=== PATIENT | male | born 1955 | race Caucasian/White ===

== ENCOUNTER 2024-06-17 15:45 | Outpatient (CLI) | payer MEDICARE, MEDICAID, SELFPAY ==
--- NOTE | 2024-06-17 11:15 | DI.RAD_ITS ---
Exam(s) XR KNEE RT 3V AP,LAT,DONTAE EXAM: XR KNEE RT 3V AP,LAT,DONTAE CLINICAL HISTORY: R KNEE OA. TECHNIQUE: 2D digital imaging was performed of the right knee. Three views obtained. AP, lateral an d PA tunnel views were obtained. COMPARISON: No exams were available for comparison FINDINGS: BONES: No acute fracture is present. No bony destructive lesion is seen. JOINTS: There are severe degenerative changes seen in the right knee involving all 3 joint compartmen ts characterized by joint space narrowing and osteophytes. There is bone on bone in the medial femor al tibial joint and the patellofemoral joint. Large osteophytes are seen at the patellofemoral joint . There is flattening of the articular surfaces in the proximal tibia. There is a joint effusion pr esent. There densities seen both anterior and posterior to the knee on the lateral view which may re present loose bodies. SOFT TISSUE: Vascular calcification is present. IMPRESSION: Advanced osteoarthritis of the right knee. DATA REPOSITORY: RADIATION DOSE DELIVERED:
--- NOTE | 2024-06-17 11:15 | DI.RAD_ITS ---
Exam(s) XR KNEE LT 3V AP,LAT,DOTNAE EXAM: XR KNEE LT 3V AP,LAT,DONTAE CLINICAL HISTORY: OA L KNEE. TECHNIQUE: 2D digital imaging was performed of the left knee. Three images were obtained. AP, late ral and PA tunnel views were obtained. COMPARISON: There are no priors for comparison. FINDINGS: BONES: No acute fracture is present. No bony destructive lesion is seen. JOINTS: There are advanced degenerative changes in all 3 joint compartments of the left knee with latonya nt space narrowing and osteophytes present. Subchondral sclerosis is seen. There is flattening of t he articular surfaces with bone on bone in the femoral tibial joint. There is a joint effusion. The re densities seen anteriorly in the knee suggesting loose bodies. SOFT TISSUE: Atherosclerotic calcification is seen. IMPRESSION: Advanced osteoarthritis of the left knee. DATA REPOSITORY: RADIATION DOSE DELIVERED:
== END 2024-06-17 15:46 | disposition home or self-care (01) ==
LOC: DIORS 15:45
PROVIDERS: PCP Physician Assistant Medical; Visit Provider Student in an Organized Health Care Education/Training Program
DX: M17.0 Bilateral primary osteoarthritis of knee (principal)
CPT/HCPCS: 20610; 73562; 99203; J1010

== ENCOUNTER 2024-11-07 15:45 | Outpatient (CLI) | payer MEDICARE, MEDICAID, SELFPAY ==
--- NOTE | 2024-11-07 13:30 | DI.RAD_ITS ---
Exam(s) XR STANDING ALIGNMENT EXAM: XR STANDING ALIGNMENT CLINICAL HISTORY: BILAT KNEE OA. TECHNIQUE: 2D digital imaging was performed. COMPARISON: CR XR KNEE RT 3V AP,LAT,DONTAE from 06/17/2024 CR XR KNEE LT 3V AP,LAT,DONTAE from 06/17/2024 FINDINGS: 3 views There is severe [id number] narrowing of the medial lateral compartments of both knees, similar to p rior images of 06/17/2024. There are degenerative subarticular cysts in all compartments. There is again noted an element of concavity of the medial tibial plateau of the right knee without evidence o f tibial plateau fracture. There is Verus deformity of the right knee again noted. There is mild narrowing of the right hip joint. Left hip joint appears unremarkable. Ankles unremar kable. There are no significant osseous lesions. IMPRESSION: Severe advanced osteoarthritic degenerative change both knees involving medial lateral compartments b ilaterally. Similar to prior images of 06/17/2024. DATA REPOSITORY: RADIATION DOSE DELIVERED:
== END 2024-11-07 15:46 | disposition home or self-care (01) ==
LOC: DIORS 15:46
PROVIDERS: PCP Physician Assistant Medical; Referring Provider Physician Assistant Medical; Visit Provider Physician Assistant
DX: M17.11 Unilateral primary osteoarthritis, right knee; M17.12 Unilateral primary osteoarthritis, left knee
CPT/HCPCS: 99213; 77073

== ENCOUNTER → 2025-05-08 12:57 | Outpatient (BNVA) | payer MEDICARE, MEDICAID, SELFPAY | PROVIDERS: PCP Physician Assistant Medical; Referring Provider Physician Assistant Medical; Visit Provider Student in an Organized Health Care Education/Training Program | DX: Z01.818 Encounter for other preprocedural examination (principal); M17.0 Bilateral primary osteoarthritis of knee | CPT/HCPCS: 99024 ==

== ENCOUNTER 2025-05-08 16:42 | Outpatient (REF) | payer MEDICARE, MEDICAID, SELFPAY ==
[2025-05-08 17:53] LABS: HCT 37.7 % (40.0-50.0); HGB 12.4 g/dL (13.5-17.5); MCH 31.9 pg (27.0-33.0); MCHC 32.9 % (32.0-36.0); MCV 97 fL (80-95); MPV 10.3 fL (8.0-11.0); Platelet Count 189 10^3/uL (130-400); RBC 3.89 10^6/uL (4.36-5.78); RDW 13.2 % (11.8-14.1); RDW-SD 47.2 fL; WBC 5.80 10^3/uL (4.4-10.8)
[2025-05-08 17:57] LABS: Anion Gap 5.9 mmol/L (3-11); BUN 23 mg/dL (7-18); CO2 30.1 mmol/L (21.0-32.0); Calcium 9.1 mg/dL (8.5-10.1); Chloride 108 mmol/L (98-107); Estimated GFR 97.90 (mL/min/1.73m2); Glucose 114 mg/dL (74-106); Potassium 3.7 mmol/L (3.5-5.1); Sodium 144 mmol/L (136-145)
== END 2025-05-08 16:43 | disposition home or self-care (01) ==
LOC: LBN 16:42
PROVIDERS: PCP Physician Assistant Medical; Visit Provider Student in an Organized Health Care Education/Training Program
DX: M17.0 Bilateral primary osteoarthritis of knee (principal); Z01.818 Encounter for other preprocedural examination
CPT/HCPCS: 80048; 85027

== ENCOUNTER 2025-05-20 13:12 | Inpatient (IN) | payer MEDICARE, MEDICAID, SELFPAY ==
[2025-05-20] VITALS (15 sets, daily range): BP systolic 84–184; BP diastolic 54–111; PULSE 71–94; RESP 16–22; TEMP 36–37.1; O2SAT 87–97; BMI 40.1
--- NOTE | 2025-05-20 | DI.US_ITS ---
APPROVED REPORT EXAM: Comprehensive 2D, Doppler, and color-flow Echocardiogram Patient Location: In-Patient Room/Bed: [facility] Animal Health Technician: Ban Flores RDCS (AE) Indications: New murmur, Awaiting surgery Other Information Study Quality: Adequate. Technically limited study due to body habitus. Conclusion Mild concentric left ventricular hypertrophy. Ejection fraction is 60%. Wall motion is normal Normal right ventricular size and function Both atria are normal in size The aortic valve is calcified. There is mild to moderate aortic stenosis with a peak gradient of 41 and mean 24 mmHg. Calculated aortic valve area is 1.5 cm??. There is mild aortic regurgitation Mild mitral annular calcification Mildly to moderately dilated aortic root and ascending aorta Wall motion Left Ventricle The left ventricle is normal size. The left ventricular systolic function is normal. The left ventricular ejection fraction is within the normal range. Mild concentric left ventricular hypertrophy. There is normal LV segmental wall motion. There is no ventricular septal defect visualized. LVEF is 60%. Right Ventricle The right ventricle is normal size. The right ventricular systolic function is normal. Atria The left atrium size is normal. The right atrium size is normal. The interatrial septum is intact with no evidence for an atrial septal defect. Aortic Valve Aortic valve is calcified. Number of aortic valve leaflets could not be assessed. Mild to moderate aortic stenosis. Highest mean aortic valve gradient is 24.08_mmHg. Peak aortic valve gradient is 41.0mmHg. Calculated KATE by the continuity equation is 1.5cm2. Mild aortic regurgitation. Mitral Valve Mild mitral annular calcification. No evidence of mitral valve stenosis. Trace mitral regurgitation. Tricuspid Valve The tricuspid valve is normal in structure. There is no tricuspid valve stenosis. Trace to mild tricuspid regurgitation. Unable to assess PA pressure. Pulmonic Valve The pulmonary valve is normal in structure. There is no pulmonic valvular stenosis. There is no pulmonic valvular regurgitation. Great Vessels Aortic root is mildly dilated. The ascending aorta is moderately dilated Aortic arch is normal in caliber. IVC is normal in size and collapses >50% with inspiration. Pericardium There is no pericardial effusion. 2D Dimensions IVSD d PLAX 1.30 cm M: 0.6-1.2 Ao Root d 4.08 cm M: 3.1 - 3.7 LVPW d PLAX 1.31 cm M: 0.6 - 1.2 Ao Asc Diam d 4.31 cm M: 2.6 - 3.4 LVID d PLAX 4.93 cm M: 4.2 - 5.8 LVDs 3.32 cm M: 2.5 - 4.0 LV EF Teichholz 60.9 % FS 32.68 % LV EDV (Teich) 114.6 mL LV ESV (Teich) 44.8 mL Auto EF LV EDV A4C 150.4 mL LV EDV A2C 142.7 mL LV EDV BP 145.8 mL LV ESV A4C 59.7 mL LV ESV A2C 54.7 mL LV ESV BP 56.0 mL LVEF(%) A4C 60.3 % LVEF(%) A2C 61.7 % LVEF(%) BP 61.6 % LV SV A4C 90.6 ml LV SV A2C 88.0 ml LV SV BP 89.9 ml LV CO A4C 6.1 L/min LV CO A2C 6.1 L/min LV CO BP 6.1 L/min HR A4C 67.67 BPM HR A2C 69.77 BPM LV EDV Index (BP) LA Volume LA Length A4C 7.2 cm LA Length A2C 6.9 cm LA Area A4C s 26.69 cm2 LA Area A2C s 25.36 cm2 LA Vol A4C A-L 84.37 mL LA Vol A2C A-L 79.15 mL LA Vol Biplane A-L 83.3 mL LA Vol/BSA A4C A-L LA Vol/BSA A2C A-L LA Vol/BSA BP A-L 34.6 mL/m2 LA Vol A4C MOD 78.8 mL LA Vol A2C MOD 75.2 mL LA Vol BP MOD 78.2 mL RA Volume RA Area A4C 16.4 cm2 RA ESV A4C (A-L) 44.4mL RA Vol/BSA A4C A-L RA Length A4C 5.1 cm RA ESV A4C (MOD) 42.6mL LV Diastology MV E' medial 0.067 (>0.07 m/s) MV E Vmax 1.01 (0.4-1.3 m/s) MV E/E' MED 15.08 (<14) MV A Vmax 1.40 (0.4-1.3 m/s) MV E' lateral 0.097 (>0.1 m/s) E/A Ratio 0.7 MV E/E' LAT 10.36 (<14) MV E' Average 0.082 m/s MV E/E'(average) 12.28 Aortic Valve AoV Vmax 3.20 m/s LVOT Vmax 1.24 m/s AoV Peak Grad 63.3 mmHg LVOT Peak Grad 6.2 mmHg AoV Area (Vmax) 1.55 cm2 LVOT VTI 0.313 m AoV VTI 0.789 m LVOT Mean Grad 2.9 mmHg AoV Mean Mello. 2.32 m/s LVOT SV 124.91 mL AoV Mean Grad 24.1 mmHg LVOT Diam s 2.25 cm AoV Area (VTI) 1.58 cm2 AV Regurg Peak Gr. 41.00 mmHg Velocity Ratio 0.39 AR Decel Billings 2.6m/sec2 AR DT 1808 msec AR PHT 524 msec AR Vmax 4.63 m/s Mitral Valve MV DT 340 (160-240 msec) MV Vmax TIPS 1.57 m/s MV Mean Grad 3.8 (<2mmHg) MV VTI 0.388 m Pulmonary Valve PV Vmax 1.22 (0.5-1.5 m/s) RVOT Vmax 0.88 m/s PV Peak Grad 6.0 mmHg RVOT Peak Gr. 3.1 mmHg PV Mean Mello 0.89 m/s RVOT VTI 0.163 m PV Mean Grad 3.4 mmHg RVOT Mean Gr. 2.0 mmHg Tricuspid Valve TV S' 0.15 m/s
--- NOTE | 2025-05-20 10:52 | W.PM.DS.N ---
Discharge Plan Disposition Patient Disposition: Home Condition: Good Discharge Details Reason For Visit: Bilateral knee DJD Attending Provider: Miguelangel Shukla Primary Care Provider: Vicki Gill Home Meds and New Rx's Prescriptions: No Action bupropion HCl 150 mg tablet extended release 24 hr 150 mg PO QAM atorvastatin 20 mg tablet 20 mg PO DAILY gabapentin 300 mg capsule 300 mg PO QHS escitalopram oxalate 20 mg tablet 20 mg PO DAILY cholecalciferol (vitamin D3) 50 mcg (2,000 unit) capsule 50 mcg PO DAILY fluticasone furoate-vilanterol [Breo Ellipta] 200-25 mcg/dose blister with device 1 inh inhalation DAILY ibuprofen 800 mg tablet 800 mg PO TID cyclobenzaprine 10 mg tablet 10 mg PO TID Patient Comments: Pt reports taking BID lisinopril 20 mg tablet 20 mg PO DAILY Discharge Instructions Additional Instructions: Total Knee Discharge Instructions Activity: The most important activity is to walk and to work on gentle motion (both flexion and extension). You should try to take short walks a few times a day. It is important that when resting you work on keeping the knee straight. Avoid putting a pillow behind the knee as this will encourage flexion. Work on range of motion exercises as provided by Physical Therapy. - Start outpatient physical therapy within 2 weeks. - You should wear the DANIEL hose on both legs for 2 weeks. You may remove these at night. You may also use any compression sock in place of the DANIEL hose. - Utilize [employer] to review exercises, see videos on exercises and obtain basic information pertaining to your surgery and your recovery. Dressing: Remove the Alonzo wrap by 2 days after your surgery and put on the DANIEL stocking given to you from the hospital. Keep the surgical dressing (underneath the ALONZO wrap) in place for at least one week. After the first week it may be removed and replaced with light gauze and tape or nothing. The wound and dressing may get wet after 3 days but avoid soaking the dressing or otherwise it will need to be changed. Many people prefer covering the dressing with cling wrap (saran wrap) to minimize it from getting soaked. If it gets wet, just pat dry. If it starts to peel off then it will need to be changed. Medications: - You should take Tylenol and anti-inflammatory Celebrex as your primary pain control medications. If the Celebrex is too expensive or not covered, please call the office for another alternative (Advil/Ibuprofen or Naproxen/Aleve) - You have been prescribed a stronger pain medication Oxycodone for breakthrough pain, take as needed as prescribed. - You have also been prescribed a stomach acid reduction agent Pantoprozole to help reduce stomach acid and reflux. - You take Gabapentin at baseline - continue to take at night for restlessness and nerve pain. - You will be taking Aspirin 81mg twice a day for DVT prevention unless instructed otherwise. - You have also been prescribed Decadron to take to control post-operative nausea and pain. You will start this tomorrow. - If you have constipation you should take Colace (which has been prescribed) or Miralax (which is available [id number]). It takes most people 3-4 days to have a bowel movement. Follow-up: 2 weeks If you have any acute concerns or questions, please do not hesitate to contact the office at [phone]. You may contact Dr. Shukla with any questions after hours through the hospital at [phone] or on his cell phone at [phone]. Referrals: Miguelangel Shukla MD [ [facility] STAFF PHYSICIAN, Orthopaedic Surgical] Equipment/Supplies: Walker Activity:: Elevate Remove Dressings/Wound Care:: Do Not Remove Shower/Bathe:: Cover Diet:: As Tolerated PFSH All Active Problems Blindness and low vision (Acute) Macular degeneration (Acute) Asthma (Chronic) Hyperlipidemia (Acute) Hypertensive disorder (Chronic) Onychomycosis (Acute) Depression (Chronic) Bilateral primary osteoarthritis of knee (Chronic) depo medrol 06/17/24 Surgical History (Updated 05/16/25 @ 13:30 by Tavia Sewell RN) Hx of knee surgery 1974, R Social History Smoking/Tobacco Use Status: Never Smoking risk assessment performed?: Yes Alcohol Intake: never Drug use: Never Substance use type: does not use Housing: other Do you feel safe at home: Yes
--- NOTE | 2025-05-20 11:15 | RT.EKG_ITS ---
APPROVED REPORT Exam: Resting ECG Reason for Exam: Systolic Hear Murmur Patient Location: O HR:71 bpm ECG Measurements Heart Rate 71 AXIS MS 193 P 15 QRSd 159 QRS 59 QT 404 T 6 QTc 441 Conclusion Sinus rhythm...normal P axis, V-rate 60- 99 Probable left atrial enlargement...P >50mS, <-0.10mV V1 Right bundle branch block...QRSd>120, terminal axis(90,270)
[2025-05-20] MEDS: Gabapentin 300 MG CAP PO ×2 (13:23→22:25)
[2025-05-20] MEDS: Acetaminophen 500 MG TAB 1000 MG PO ×2 (13:23→22:25)
[2025-05-20] MEDS: Celecoxib 200 MG CAP 400 MG PO (13:23)
[2025-05-20] MEDS: Lactated Ringers 1,000 ML 80 ML IV ×2 (13:35→20:27)
--- NOTE | 2025-05-20 13:35 | W.ANESPRE ---
General Info Date of Service Date Performed: 05/20/25 Height: 5 ft 10 in Weight: 127.006 kg Body Mass Index (BMI): 40.1 Surgical Procedure: Operation Date: 05/20/25 13:50 Proposed Procedure Side Surgeon p Knee Total Arthroplasty Bilateral w/OrthAlign Bilateral Miguelangel Shukla MD Meds Allergies and Home Medications Allergies Allergy/AdvReac Type Severity Reaction Status Date / Time No Known Allergies Allergy Verified 05/20/25 10:38 Home Medication ?Medication ?Instructions ?Recorded atorvastatin 20 mg tablet 20 mg PO DAILY 06/12/24 bupropion HCl 150 mg 24 hr tablet, 150 mg PO QAM 06/12/24 extended release cholecalciferol (vitamin D3) 50 50 mcg PO DAILY 06/12/24 mcg (2,000 unit) capsule cyclobenzaprine 10 mg tablet 10 mg PO TID 06/12/24 escitalopram oxalate 20 mg tablet 20 mg PO DAILY 06/12/24 fluticasone furoate 200 1 inh inhalation DAILY 06/12/24 mcg-vilanterol 25 mcg/dose inhalation powder (Breo Ellipta) gabapentin 300 mg capsule 300 mg PO QHS 06/12/24 ibuprofen 800 mg tablet 800 mg PO TID 06/12/24 lisinopril 20 mg tablet 20 mg PO DAILY 05/08/25 Current Visit Medications: Current Medications Generic Name Dose Route Start Last Admin Trade Name Freq PRN Reason Stop Dose Admin Acetaminophen 1,000 mg 05/20/25 06:00 05/20/25 13:23 Acetaminophen 500 Mg Tab PO 05/20/25 23:59 1,000 mg PREOP JOSE L Administration Acetaminophen 1,000 mg 05/20/25 14:00 Acetaminophen 500 Mg Tab PO 06/19/25 13:59 TID JOSE L Aspirin 81 mg 05/20/25 20:00 Aspirin E.C. 81 Mg Tabec PO 06/19/25 19:59 BID JOSE L Atorvastatin Calcium 20 mg 05/21/25 08:30 Atorvastatin 20 Mg Tab PO 06/20/25 08:29 DAILY JOSE L Bupropion HCl 150 mg 05/21/25 08:30 Bupropion-Xl 150 Mg Tabcr PO 06/20/25 08:29 QAM JOSE L Celecoxib 400 mg 05/20/25 06:00 05/20/25 13:23 Celecoxib 200 Mg Cap PO 05/20/25 23:59 400 mg PREOP JOSE L Administration Celecoxib 200 mg 05/20/25 20:00 Celecoxib 200 Mg Cap PO 06/19/25 19:59 BID JOSE L Cyclobenzaprine HCl 10 mg 05/20/25 14:00 Cyclobenzaprine 10 Mg Tab PO 06/19/25 13:59 TID JOSE L Dexamethasone 4 mg 05/21/25 08:30 Dexamethasone 4 Mg Tab PO 05/22/25 08:31 DAILY JOSE L Docusate Sodium 100 mg 05/20/25 13:12 Docusate Sodium 100 Mg Cap PO 06/19/25 13:11 BID PRN PRN Constipation Droperidol 0.625 mg 05/20/25 13:15 Droperidol 5 Mg/2 Ml Vial IVP 06/19/25 13:14 DIRECTED PRN Ephedrine Sulfate 0 mg 05/20/25 13:15 Ephedrine 25 Mg/5 Ml Syringe IVP 06/19/25 13:14 DIRECTED PRN Escitalopram Oxalate 20 mg 05/21/25 08:30 Escitalopram 20 Mg Tab PO 06/20/25 08:29 DAILY JOSE L Fentanyl 0 mcg 05/20/25 13:15 Fentanyl 100 Mcg/2 Ml Vial IVP 06/19/25 13:14 DIRECTED PRN Gabapentin 300 mg 05/20/25 06:00 05/20/25 13:23 Gabapentin 300 Mg Cap PO 05/20/25 23:59 300 mg PREOP JOSE L Administration Gabapentin 300 mg 05/20/25 20:00 Gabapentin 300 Mg Cap PO 06/19/25 19:59 HS JOSE L Hydromorphone HCl 0.5 mg 05/20/25 13:12 Hydromorphone 2 Mg/Ml Syr IVP 06/19/25 13:11 Q2H PRN PRN Hydromorphone HCl 0 mg 05/20/25 13:15 Hydromorphone 2 Mg/Ml Syr IVP 06/19/25 13:14 DIRECTED PRN Ringer's Solution 1,000 mls @ 80 mls/hr 05/20/25 06:00 IV 05/20/25 23:59 INFUSION JOSE L Cefazolin Sodium 3,000 mg/ 100 mls @ 200 mls/hr 05/20/25 06:00 Sodium Chloride IV 05/20/25 23:59 PREOP JOSE L Tranexamic Acid/Sodium Chloride 1,000 mg in 100 mls @ 600 mls/hr 05/20/25 06:00 IVPB 05/20/25 23:59 PREOP [facility] Tranexamic Acid/Sodium Chloride 1,000 mg in 100 mls @ 600 mls/hr 05/20/25 06:00 IVPB 05/20/25 23:59 DIRECTED [facility] Cefazolin Sodium/Dextrose 1 gm in 50 mls @ 100 mls/hr 05/20/25 14:00 Ancef Duplex IVPB 05/21/25 06:29 Q8H [facility] IV Miscellaneous Supplies 1 each 05/20/25 06:00 Iv Access IV 05/20/25 23:59 DIRECTED [facility] Lisinopril 20 mg 05/21/25 08:30 Lisinopril 20 Mg Tab PO 06/20/25 08:29 DAILY [facility] Naloxone HCl 0 mg 05/20/25 13:15 Naloxone 0.4 Mg/Ml Vial IVP 06/19/25 13:14 PRN PRN Oxycodone HCl 0 mg 05/20/25 13:12 Oxycodone 5 Mg Tab PO 06/19/25 13:11 Q3H PRN PRN Pain Pantoprazole Sodium 40 mg 05/21/25 07:30 Pantoprazole 40 Mg Tabcr PO 06/20/25 07:29 DAILY@0730 [facility] Pt's Own Fluticasone 1 each 05/21/25 08:30 Furoate-Vilanterol IH 06/20/25 08:29 [Breo Ellipta] 200- DAILY [facility] 25 Polyethylene Glycol 17 gm 05/20/25 13:12 Polyethylene Glycol 3350 17 Gm Packet PO 06/19/25 13:11 BID PRN PRN Constipation Sodium Chloride 0 ml 05/20/25 06:00 Normal Saline Flush 10 Ml Syr IV 05/20/25 23:59 PRN PRN Sodium Chloride 0 ml 05/20/25 06:00 Normal Saline 10 Ml Vial IJ 05/20/25 23:59 DIRECTED PRN Sterile Water 0 ml 05/20/25 06:00 Water,Injection,Sterile 10 Ml Vial IJ 05/20/25 23:59 DIRECTED PRN Tranexamic Acid 1,300 mg 05/20/25 10:50 Tranexamic Acid 650 Mg Tab PO 06/19/25 10:49 ONCE PRN postoperative Tranexamic Acid 1,300 mg 05/20/25 13:12 Tranexamic Acid 650 Mg Tab PO 06/19/25 13:11 ONCE PRN postoperative PFSH Active Problems Active Problems: Problem Status Onset Code Blindness and low vision Acute H54.10 Macular degeneration Acute H35.30 Asthma Chronic J45.909 Hyperlipidemia Acute E78.5 Hypertensive disorder Chronic I10 Onychomycosis Acute B35.1 Depression Chronic F32.A Bilateral primary osteoarthritis of knee Chronic M17.0 Surgical History Surgical History Hx of knee surgery 1974, R Tobacco Smoking/Tobacco Use Status: Former Tobacco Use Alcohol Alcohol Intake: former Substance Use Substance use: Never Substance use type: does not use Vital Signs and Lab Results Vital Signs Most Recent Vital Signs in EMR: Most Recent Vital Signs Temp Pulse BP Pulse Ox 37.1 C 90 170/94 H 97 05/20/25 10:10 05/20/25 10:10 05/20/25 10:45 05/20/25 10:10 Lab Results Complete Blood Count: WBC, (4.4-10.8) 5.80 10^3/uL 05/08/25, 13:40 RBC, (4.36-5.78) 3.89 10^6/uL L 05/08/25, 13:40 Hgb, (13.5-17.5) 12.4 g/dL L 05/08/25, 13:40 Hct, (40.0-50.0) 37.7 % L 05/08/25, 13:40 Plt Count, (130-400) 189 10^3/uL 05/08/25, 13:40 Complete Metabolic Panel: Sodium, (136-145) 144 mmol/L 05/08/25, 13:40 Potassium, (3.5-5.1) 3.7 mmol/L 05/08/25, 13:40 Chloride, (98-107) 108 mmol/L H 05/08/25, 13:40 Carbon Dioxide, (21.0-32.0) 30.1 mmol/L 05/08/25, 13:40 BUN, (7-18) 23 mg/dL H 05/08/25, 13:40 Creatinine, (0.70-1.30) 0.7 mg/dL 05/08/25, 13:40 Est GFR (CKD-EPI 2020), (mL/min/1.73m2) 97.90 05/08/25, 13:40 Calcium, (8.5-10.1) 9.1 mg/dL 05/08/25, 13:40 Glucose, (74-106) 114 mg/dL H 05/08/25, 13:40 Anesthesia Assessment and Plan Anesthesia History Personal History: No History of General Anesthesia Family History: No Family History of Anesthesia Complications Exercise Tolerance Exercise Tolerance: Metabolic Equivalents>4 Pertinent Negatives Pertinent Negatives: No Symptoms of GERD Cardiac & Pulmonary Exam Cardiac Exam: Heart Murmur Present (Systolic murmur (see echo)) Pulmonary Exam: Clear Bilateral Breath Sounds Implantable Cardiac Device Does patient have a Pacemaker or an ICD?: No Airway Exam Known Difficult Airway: No Mallampati Class: 2 Mouth Opening: Normal (> 3cm) Thyromental Distance: Greater than 3 cm Facial Hair: Full Mcfadden Neck Range of Motion: Full ROM Neck Circumference: Normal Teeth Condition: Generalized Poor Dentition ASA Classification ASA Score: ASA 3 Emergency Case?: No NPO Status NPO Status: NPO Clears >2 hours, Solids >8 hours Anesthesia Plan Resuscitation Status: Full Code Anesthesia Technique: Spinal Anesthesia Airway Planned: Natural Airway Pain Management: Surgeon and patient request nerve block Monitors Used: Standard Monitors Preoperative Comments:: ? spine history. Pt has lost 4 of height. Patient Name: Luciano Rodriguez Unit #: [id number] Loc: [facility] Ordering Provider: Miguelangel Shukla M.D. Status: [facility] Primary Care Provider: Vicki Gill Date of Exam: 05/20/25 Sex: M Admission Date: 05/20/25 : 1955 Age: 70 APPROVED REPORT EXAM: Comprehensive 2D, Doppler, and color-flow Echocardiogram Patient Location: In-Patient Room/Bed: [facility] Soil Science Teacher: Ban Flores RDCS (AE) Indications: New murmur, Awaiting surgery Other Information Study Quality: Adequate. Technically limited study due to body habitus. Conclusion Mild concentric left ventricular hypertrophy. Ejection fraction is 60%. Wall motion is normal Normal right ventricular size and function Both atria are normal in size The aortic valve is calcified. There is mild to moderate aortic stenosis with a peak gradient of 41 and mean 24 mmHg. Calculated aortic valve area is 1.5 cm??. There is mild aortic regurgitation Mild mitral annular calcification Mildly to moderately dilated aortic root and ascending aorta Wall motion Left Ventricle The left ventricle is normal size. The left ventricular systolic function is normal. The left ventricular ejection fraction is within the normal range. Mild concentric left ventricular hypertrophy. There is normal LV segmental wall motion. There is no ventricular septal defect visualized. LVEF is 60%. Right Ventricle The right ventricle is normal size. The right ventricular systolic function is normal. Atria The left atrium size is normal. The right atrium size is normal. The interatrial septum is intact with no evidence for an atrial septal defect. Aortic Valve Aortic valve is calcified. Number of aortic valve leaflets could not be assessed. Mild to moderate aortic stenosis. Highest mean aortic valve gradient is 24.08_mmHg. Peak aortic valve gradient is 41.0mmHg. Calculated KATE by the continuity equation is 1.5cm2. Mild aortic regurgitation. Mitral Valve Mild mitral annular calcification. No evidence of mitral valve stenosis. Trace mitral regurgitation. Tricuspid Valve The tricuspid valve is normal in structure. There is no tricuspid valve stenosis. Trace to mild tricuspid regurgitation. Unable to assess PA pressure. Pulmonic Valve The pulmonary valve is normal in structure. There is no pulmonic valvular stenosis. There is no pulmonic valvular regurgitation. Great Vessels Aortic root is mildly dilated. The ascending aorta is moderately dilated Aortic arch is normal in caliber. IVC is normal in size and collapses >50% with inspiration. Pericardium There is no pericardial effusion.
--- NOTE | 2025-05-20 14:07 | ROE_ITS ---
Operative Note Operative Note PRE-OP DIAGNOSIS: Bilateral Knee Osteoarthritis with Deformity POST-OP DIAGNOSIS: same PROCEDURE: Bilateral Total Knee Replacement with Intraoperative Navigation SURGEON: Miguelangel Shukla AGRICULTURAL EXTENSION OFFICER: Angelina Miller ANESTHESIA TYPE: Spinal Refer to Anesthesia Record ESTIMATED BLOOD LOSS: 700 PATHOLOGY: none sent TOURNIQUET TIME: 0 COMPLICATIONS: None Patient was transported to: PACU Patient's condition: stable Implants: RIGHT: 1. Depuy Attune Cementless Cruciate Retaining Femoral Component, Size 8 2. Depuy Attune Cementless Fixed Bearing Tibial Component, Size 9 3. Depuy Attune 8x12mm CR/FB Poly 4. Depuy Attune Patellar Component, Size 41 mm LEFT: 1. Depuy Attune Cementless Cruciate Retaining Femoral Component, Size 8 2. Depuy Attune Cementless Fixed Bearing Tibial Component, Size 9 3. Depuy Attune 8x8mm CR/FB Poly 4. Depuy Attune Patellar Component, Size 41 mm Indications: I have seen Luciano in clinic for symptoms of bilateral knee arthritis, confirmed with radiographic findings. He has exhausted nonoperative methods and was having significant limitations in daily function and desired better function and less pain. I discussed the technical details of a knee replacement. I explained the risks of the procedure to include, but not limited to, bleeding, infection, pain, stiffness, fracture, damage to nerves and vessels, damage to muscles and tendons, loosening, need for repeat procedure, blood clot and cardiopulmonary demise. Despite these risks, Luciano elected to proceed. Findings: There was significant signs of arthritis throughout the knee. Procedure Description: Luciano was greeted in the preoperative holding area where the correct side was identified and marked. The consent was reviewed with the patient and signed. The history and physical was updated. All questions were answered. Preoperative mediacations were administered: Acetaminophen 1000mg, Celebrex 400mg, and Gabapentin 300mg. An adductor canal block was then administered by the anesthesia team in the [facility]. He was taken back to the operating room. A spinal anesthestic was then administered. The patient was placed into the supine position on the operating room table. Posts were placed for positioning during the procedure. All bony prominences were well padded. Prophylactic antibiotics in the form of Cefazolin were administered. 1g of Tranxemic Acid was given intravenously within 30 minutes of incision. Both legs were then prepped with Chloraprep and draped in a standard fashion with impervious stockinette. A second prep with Chloraprep was performed prior to application of Iodine impregnated skin protection on the left knee while the right leg was kept covered in the stockinette. A timeout to confirm correct identity, side and site, procedure, allergies, anesthesia, and medical concerns was performed. Left Knee Starting with the right knee in some flexion, a midline incision was made overlying the knee. Full thickness skin flaps were raised once the extensor mechanism was encountered. These were raised medially and laterally. Any bleeding was controlled with electrocautery. Once the extensor mechanism was fully exposed, a medial parapatellar arthrotomy was performed in a flexed position. All bleeding from the arthrotomy and the geniculate arteries was coagulated. A medial subperiosteal peel was performed with electrocautery to the midcoronal plane. Due to the significant varus deformity the entire medial tibial plateau was exposed. The fat pad was removed while keeping the patellar tendon protected. The anterior distal femur synovium was removed for later visualization. An osteotome was utilized to remove osteophytes from the notch for visualization of the PCL, ACL was nonexistent. The PCL was resected and the anterior horn of the lateral meniscus was transected. The knee was then flexed with the patella everted. Large osteophytes from the tibia were removed. Large osteophytes from the femur were removed. An osteotome was also utilized to remove large osteophytes from the medial and posterior medial tibia, protecting the MCL. A single starting pin was then placed 1cm anterior to the PCL insertion and the notch in the direction of the femoral head. The OrthoAlign device was applied over the pin. It was oriented to be in line with the epicondylar axis and the trochlear groove. It was then pinned into place. The navigation computer was then turned on and calibrated. The distal femur cut was set at 1 degrees varus and 3 degrees flexion. The distal femur cutting guide then was positioned for a 9mm cut. The distal femur was cut with an oscillating saw while protecting the soft tissues. The tibia was then addressed. The OrthoAlign device was placed over the tibial tubercle and medial tibia and secured into position. Once again, OrthoAlign was calibrated and then set for a 2 degree varus cut and 5 degrees of posterior slope. With this locked into position, the cut thickness stylus was used to assess cut thickness. The lateral side, most involved side, was set for a 4mm cut. This was then held in position and pinned into place with 2 additional pins and a cross pin for stability. The medial and lateral collateral ligaments were protected and the cut was performed. With this completed, it was assessed and noted to be of appropriate dimensions. The guide and OrthoAlign was removed. A spacer block was inserted and the knee was brought into extension to ensure enough space was present. . The Orthoalign gap balancing device was then placed in extension. This was used to ensure that the ligaments were properly balanced with up to 2 to 3 mm laxity laterally compared medially. The extension gap was measured as 20mm. The knee was then brought into 90 degrees of flexion and the ligament change management manager was once again placed. Under the same amount of force the flexion gap was measured. The Attune specific jig was placed and the flexion gap was made to match the extension gap. The femur was then sized as a size 8. The 4-in-1 cutting guide was the placed. An yuri wing was used to confirm appropriate position of the anterior cut to avoid notching. This cutting guide was ensured to be flush on the cut surface and then pinned into place with headed pins. While protecting the soft tissues, quad tendon, and collateral ligaments, the anterior and posterior cuts were performed with a saw. The central two pins were removed and the posterior and anterior chamfers were cut next. The notch-cutting guide was placed. This was pinned to lateralize the femoral component as much as possible while keeping it flush on the cut surface. This was then pinned into position. A saw was used to make the notch cut. A rasp smoothed the cut surfaces. The medial and lateral menisci were removed. A trial femoral component was then inserted, impacted down to the cut surfaces, and the lug holes were drilled. A provisional trial tibial component was placed and the knee was brought through range of motion. The polyethylene was trialed until there was good flexion and extension with excellent stability to the medial and lateral collaterals. The patella was tracking without thumbs. A size 8mm polyethylene component provided the best range of motion and stability with less than 2mm gapping with medial and lateral stress and full extension without significant hyperextension. The tibial cut surface was fully exposed. The tibia was then sized as a 9. The tibia had been previously marked during trialing to correspond to the center of the tibial component to help with rotation. The trial was aligned to this diana, approximately rotated to the medial 1/3rd of the tibial tubercle. The trial was pinned into place. The tibia was prepared with a reamer and a keel punch and lug holes. The knee was then brought into extension and the patella was measured as 27mm. Using the patellar clamp and cut guide, this was resected to a flat surface with at least 13mm of thickness remaining. The size 41mm patella fit the best. This was oriented and then clamped into position. The lugs were drilled. The trial components were removed. The final components were opened on the back table. The periosteal and capsular tissues, especially posteriorly, around the knee were then systematically injected with a periarticular cocktail consisting of 246mg of Ropivacaine, 0.5mg of Epinephrine, 0.08mg of Clonidine, and 30mg of Ketorolac, diluted to 100cc. On the back table, with the implants opened, the cement was mixed. One batch of high viscosity cement was prepared with vacuum assistance. After the cement was ready a small amount was placed on the cut surface of the patella and the patellar button was clamped into position and held. Then, the knee components were placed. Starting with the tibial component, the tibia was subluxed anteriorly and the lug holes of the component were lined up. The tibia was then impacted with an impactor and mallet until the tibial component was in contact with the tibia. Then, the femoral component was inserted. The lug holes were aligned and the component was impacted into position. The final polyethylene component was inserted. The knee was irrigated with Surgiphor Betadine solution. This was allowed to sit in the knee for 3 minutes and then it was thoroughly irrigated out with saline. After the cement had finally cured, approximately 15min, the clamp was removed from the patella. The knee was then taken through range of motion. The patell a was tracking with a no-thumbs technique. A complete synovectomy of the patella was performed. Any prominence to the lateral facet was resected with a rongeur. The capsule was then reapproximated with a No. 1 Vicryl at multiple locations. The capsule was finally closed with a No. 2 Stratafix, barbed suture. The second dosing of 1g TXA was started. Deep tissues were then reapproximated with 0 Vicryl and 2-0 Vicryl. The skin was closed with a running 3-0 Monocryl in a subcuticular fashion. RIGHT KNEE Attention was then turned to the right knee. The stockinette was opened and the knee was prepped with Chloraprep. Once this had dried, an Ioband dressing was placed. Starting with the knee in some flexion, a midline incision was made overlying the knee. Full thickness skin flaps were raised once the extensor mechanism was encountered. These were raised medially and laterally. Any bleeding was controlled with electrocautery. Once the extensor mechanism was fully exposed, a medial parapatellar arthrotomy was performed in a flexed position. All bleeding from the arthrotomy and the geniculate arteries was coagulated. A medial subperiosteal peel was performed with electrocautery to the midcoronal plane. Due to the significant varus deformity the entire medial tibial plateau was exposed. The fat pad was removed while keeping the patellar tendon protected. The anterior distal femur synovium was removed for later visualization. An osteotome was utilized to remove osteophytes from the notch. The PCL was resected and the anterior horn of the lateral meniscus was transected. The knee was then flexed with the patella everted. Large osteophytes from the tibia were removed. An osteotome was utilized to remove osteophytes from the medial and posterior medial tibia. There was adhesion of the MCL to these large medial osteophytes but the MCL was protected throughout the process. Large osteophytes from the femur were removed. A single starting pin was then placed 1cm anterior to the PCL insertion and the notch in the direction of the femoral head. The OrthoAlign device was applied over the pin. It was oriented to be in line with the epicondylar axis and the trochlear groove. It was then pinned into place. The navigation computer was then turned on and calibrated. The distal femur cut was set at 1 degrees varus and 3 degrees flexion. The distal femur cutting guide then was positioned for a 9mm cut. The distal femur was cut with an oscillating saw while protecting the soft tissues. The tibia was then addressed. The OrthoAlign device was placed over the tibial tubercle and medial tibia and secured into position. Once again, OrthoAlign was calibrated and then set for a 2.5 degree varus cut and 5 degrees of posterior slope. With this locked into position, the cut thickness stylus was used to assess cut thickness. The medial side, most involved side, was set for a 2mm cut. This was then held in position and pinned into place with 2 additional pins and a cross pin for stability. The medial and lateral collateral ligaments were protected and the cut was performed. With this completed, it was assessed and noted to be of appropriate dimensions. The guide and OrthoAlign was removed. A spacer block was inserted and the knee was brought into extension to ensure enough space was present. . The Orthoalign gap balancing device was then placed in extension. This was used to ensure that the ligaments were properly balanced with up to 2 to 3 mm laxity laterally compared medially. The extension gap was measured as 24mm. The knee was then brought into 90 degrees of flexion and the ligament change management manager was once again placed. Under the same amount of force the flexion gap was measured. The Attune specific jig was placed and the flexion gap was made to match the extension gap. The femur was then sized as a size 8. The 4-in-1 cutting guide was the placed. An yuri wing was used to confirm appropriate position of the anterior cut to avoid notching. This cutting guide was ensured to be flush on the cut surface and then pinned into place with headed pins. While protecting the soft tissues, quad tendon, and collateral ligaments, the anterior and posterior cuts were performed with a saw. The central two pins were removed and the posterior and anterior chamfers were cut next. The notch-cutting guide was placed. This was pinned to lateralize the femoral component as much as possible while keeping it flush on the cut surface. This was then pinned into position. A saw was used to make the notch cut. A rasp smoothed the cut surfaces. The medial and lateral menisci were removed. A trial femoral component was then inserted, impacted down to the cut surfaces, and the lug holes were drilled. A provisional trial tibial component was placed and the knee was brought through range of motion. There was noted to be excellent extension and flexion. There was no significant instability. The patella was tracking without thumbs. A size 12mm polyethylene component provided the best range of motion and stability with less than 2mm gapping with medial and lateral stress and full extension without significant hyperextension. The tibial cut surface was fully exposed. The tibia was then sized as a 9. The tibia had been previously marked during trialing to correspond to the center of the tibial component to help with rotation. The trial was aligned to this diana, approximately rotated to the medial 1/3rd of the tibial tubercle. The trial was pinned into place. The tibia was prepared with a reamer and a keel punch and lug holes. The knee was then brought into extension and the patella was measured as 27mm. Using the patellar clamp and cut guide, this was resected to a flat surface with at least 13mm of thickness remaining. The size 41mm patella fit the best. This was oriented and then clamped into position. The lugs were drilled. The trial components were removed. The final components were opened on the back table. The periosteal and capsular tissues, especially posteriorly, around the knee were then systematically injected with a periarticular cocktail consisting of 246mg of Ropivacaine, 0.5mg of Epinephrine, 0.08mg of Clonidine, and 30mg of Ketorolac, diluted to 100cc. On the back table, with the implants opened, the cement was mixed. One batch of high viscosity cement was prepared with vacuum assistance. After the cement was ready a small amount was placed on the cut surface of the patella and the patellar button was clamped into position and held. Then, the knee components were placed. Starting with the tibial component, the tibia was subluxed anteriorly and the lug holes of the component were lined up. The tibia was then impacted with an impactor and mallet until the tibial component was in contact with the tibia. Then, the femoral component was inserted. The lug holes were aligned and the component was impacted into position. The final polyethylene component was inserted. The knee was irrigated with Surgiphor Betadine solution. This was allowed to sit in the knee for 3 minutes and then it was thoroughly irrigated out with saline. After the cement had finally cured, approximately 15min, the clamp was removed from the patella. The knee was then taken through range of motion. The patella was tracking with a no-thumbs technique. A complete synovectomy of the patella was performed. Any prominence to the lateral facet was resected with a rongeur. The capsule was then reapproximated with a No. 1 Vicryl at multiple locations. The capsule was finally closed with a No. 2 Stratafix, barbed suture. Deep tissues were then reapproximated with 0 Vicryl and 2-0 Vicryl. The skin was closed with a running 3-0 Monocryl in a subcuticular fashion. Both incisions were then reinforced with skin glue. A Mepilex silver dressing was applied along with a [id number] TROY wrap to both knees. A CryoCuff was applied. Luciano was transferred to the hospital bed without difficulty an suffering no apparent complication. Luciano has a good prognosis. Physical therapy will start today and without restrictions, weight-bearing as tolerated. Aspirin 81mg BID will be used for DVT prophylaxis. Date of Procedure: 05/20/25
[2025-05-20] MEDS: ceFAZolin 3,000 MG in Normal Saline 100 ML 200 MG IV (14:17)
--- NOTE | 2025-05-20 14:27 | ANES.NERVE_ITS ---
Nerve Block Single Injection Procedure Date and Time Date Performed: 05/20/25 Procedure Start: 14:02 Location Where Procedure Performed Procedure Location: Day Surgery Unit Reason Performed: Postoperative Analgesia Requesting Provider: Miguelangel Shukla Timeout Performed Timeout Performed: Yes Monitoring Used ECG, Blood Pressure, SpO2 and See EMR for corresponding vital signs Sterility Sterility: Hand Hygiene, Surgical Cap, Surgical Mask, Sterile Gloves, Eye Protection and Chlorhexidine Sedation Given During Procedure Sedation Given (Indicate Dose Given): Versed IV Dose:: 2mg IVP Patient Mental Status Patient Mental Status: Sedate with meaningful communication Nerve Block 1st Nerve Block: Laterality: Right Block Type: Adductor Canal Ultrasound Image Saved?: Yes Needle / Catheter Used: 100mm SonoPlex II Local Anesthetic Bolus (Indicate Dose Given): Lidocaine used for local infiltration of skin, Injected in 3-5ml increments after negative blood aspiration, Bupivacaine 0.5% Dose:: 5cc/0.5% (25mg) and Exparel Dose:: 5cc/1.3% (66.5mg) Additives (Indicate Dose Given): Epinephrine to make 1:200,000 (5mcg/ml) Dose:: 25mcg Ultrasound: Sterile probe cover and gel used Nerve Stimulator: Not Used Paresthesia: None Procedure Tolerated: No Complications Procedure Outcome: Successful Performed By: Gagan Sosa 2nd Nerve Block: Laterality: Left Block Type: Adductor Canal Ultrasound Image Saved?: Yes Needle / Catheter Used: 100mm SonoPlex II Local Anesthetic Bolus (Indicate Dose Given): Lidocaine used for local i nfiltration of skin, Injected in 3-5ml increments after negative blood aspiration, Bupivacaine 0.5% Dose:: 5cc/0.5% (25mg) and Exparel Dose:: 5cc/1.3% (66.5mg) Additives (Indicate Dose Given): Epinephrine to make 1:200,000 (5mcg/ml) Dose:: 25mcg Ultrasound: Sterile probe cover and gel used Nerve Stimulator: Not Used Paresthesia: None Procedure Tolerated: No Complications and Patient tolerated well Procedure Outcome: Successful Performed By: Gagan Sosa
[2025-05-20] MEDS: TRANEXAMIC ACID/SOD. CHL. 1,000 MG/100 ML BAG 600 MG IVPB ×2 (14:28→16:07)
--- NOTE | 2025-05-20 19:06 | W.ANESPOSTOP ---
Postoperative Evaluation Date, Time and Location Date Performed: 05/20/25 Time Performed: 19:06 Patient Location: PACU Vital Signs Most Recent Imported Vital Signs: Most Recent Vital Signs Temp Pulse Resp BP Pulse Ox 36.5 C 90 22 99/57 L 95 05/20/25 19:00 05/20/25 19:00 05/20/25 19:00 05/20/25 19:00 05/20/25 19:00 Pain Score Most Recent Pain Score: Most Recent Pain Score Pain Level 0 05/20/25 19:00 Assessment Mental Status: Awake (Alert & Oriented to Patient Baseline) (Slightly sleepy but alert and oriented.) Airway and Respiratory Function: Patent airway with normal (patient baseline) respiratory exam Cardiovascular Function: Hemodynamically Stable Hydration Status: Adequately Hydrated Nausea & Vomiting: No Nausea or Vomiting Pain: Pain is tolerable per patient Peripheral Nerve Block: Regional nerve block not resolved at time of post operative discharge
[2025-05-20] MEDS: Normal Saline Flush 10 ML SYR IV (22:23)
[2025-05-20] MEDS: Aspirin E.C. 81 MG TABEC PO (22:24)
[2025-05-20] MEDS: Celecoxib 200 MG CAP PO (22:25)
[2025-05-21] VITALS (10 sets, daily range): BP systolic 72–134; BP diastolic 55–72; PULSE 59–97; RESP 16–20; TEMP 36–37.1; O2SAT 92–97
[2025-05-21] MEDS: ceFAZolin 1 GM/50 ML BAG IVPB ×3 (00:16→15:51)
--- NOTE | 2025-05-21 00:47 | W.PC.ACHO ---
Registration Status: ADM IN Primary Language: Preferred Language: Medical / Surgical History (Last Updated 05/20/25 @ 13:44 by Eligio Oh CRNA) Aortic stenosis, moderate (Last Reviewed 05/20/25 @ 10:55 by Gertrudis Zacarias) Hx of knee surgery Most Recent Vital Signs Temperature 36.3 C L 05/20/25 22:57 Temperature Source Temporal Artery Scan 05/20/25 22:57 Pulse 74 05/20/25 22:57 Pulse Rhythm Regular 05/20/25 19:25 Respiratory Rate 18 05/20/25 22:57 Respiratory Effort Normal 05/20/25 19:25 Respiratory Depth Normal 05/20/25 19:25 Respiratory Pattern Normal 05/20/25 19:25 Blood Pressure 129/89 05/20/25 22:57 Blood Pressure Mean 102 05/20/25 22:57 Blood Pressure Position Supine 05/20/25 13:55 Pulse Oximetry 93 05/20/25 22:57 Respiratory End-tidal CO2 37 05/20/25 19:00 Oxygen Delivery Method Room Air 05/20/25 22:57 Oxygen Flow Rate 0 05/20/25 22:57 Pain Level 0 05/20/25 22:57 Comment bilateral knee blocks completed 05/20/25 13:55 Allergies No Known Allergies Allergy (Verified 05/20/25 10:38) Active Medications Generic Name Dose Route Start Last Admin Trade Name Parthq PRN Reason Stop Dose Admin Acetaminophen 1,000 mg 05/20/25 20:00 05/20/25 22:25 Acetaminophen 500 Mg Tab PO 06/19/25 19:59 1,000 mg TID JOSE L Administration Aspirin 81 mg 05/20/25 20:00 05/20/25 22:24 Aspirin E.C. 81 Mg Tabec PO 06/19/25 19:59 81 mg BID JOSE L Administration Celecoxib 200 mg 05/20/25 20:00 05/20/25 22:25 Celecoxib 200 Mg Cap PO 06/19/25 19:59 200 mg BID JOSE L Administration Gabapentin 300 mg 05/20/25 20:00 05/20/25 22:25 Gabapentin 300 Mg Cap PO 06/19/25 19:59 300 mg HS JOSE L Administration Cefazolin Sodium/Dextrose 1 gm in 50 mls @ 100 mls/hr 05/21/25 00:00 05/21/25 00:16 Ancef Duplex IVPB 05/21/25 16:29 100 mls/hr Q8H JOSE L Administration IV IV Catheter Type [Left Hand] Peripheral IV IV Catheter Gauge [Left Hand] 20 Diet Orders Category Date Time Status Regular/Normal [DIET] Nutrition 05/20/25 Dinner Active Diagnostics 05/21/25 Range/Units 05:35 WBC Pending RBC Pending Hgb Pending Hct Pending MCV Pending MCH Pending MCHC Pending RDW Pending Plt Count Pending MPV Pending Sodium Pending Potassium Pending Chloride Pending Carbon Dioxide Pending Anion Gap Pending BUN Pending Creatinine Pending Est GFR (CKD-EPI 2020) Pending Glucose Pending Calcium Pending Intake and Output - 24 Hour Total 03/05/25 10:11 thru 05/20/25 23:03 Intake Total 978.667 Output Total 875 Balance 103.667 Weight 127.006 kg Intake: IV 858.667 Oral 120 Output: Urine 175 Estimated Blood Loss 700 Other: Urine Color Light Kimberly Urine Appearance Clear Urine Odor Normal Comment pt could not void at this time Emesis Description None Falls Risk Assessment History of Falls Previous History 05/20/25 19:25 Contributing Factors Impairments,Medications 05/20/25 19:25 Ambulatory Aids Uses ambulatory device 05/20/25 19:25 Tubes/Lines With any additional score 05/20/25 19:25 Gait Evaluation W/any additional score 05/20/25 19:25 Cognition No cognitive impairment 05/20/25 19:25 Fall Total Score 76 05/20/25 19:25 Level of Risk Maximum Risk 05/20/25 19:25 v v v v v v v v v Sending and/or Receiving Nurses: Please use comment section below to note any information pertinent to the patient hand-off not included above. Information / Comments: Report received from: Vanessa @[phone].
[2025-05-21 06:54] LABS: HCT 32.8 % (40.0-50.0); HGB 10.9 g/dL (13.5-17.5); MCH 31.8 pg (27.0-33.0); MCHC 33.2 % (32.0-36.0); MCV 96 fL (80-95); MPV 9.7 fL (8.0-11.0); Platelet Count 177 10^3/uL (130-400); RBC 3.43 10^6/uL (4.36-5.78); RDW 12.9 % (11.8-14.1); RDW-SD 45.2 fL; WBC 14.62 10^3/uL (4.4-10.8)
[2025-05-21 07:07] LABS: Anion Gap 4.0 mmol/L (3-11); BUN 25 mg/dL (7-18); CO2 33.0 mmol/L (21.0-32.0); Calcium 8.4 mg/dL (8.5-10.1); Chloride 104 mmol/L (98-107); Estimated GFR 90.74 (mL/min/1.73m2); Glucose 140 mg/dL (74-106); Potassium 4.9 mmol/L (3.5-5.1); Sodium 141 mmol/L (136-145)
[2025-05-21] MEDS: Pantoprazole 40 MG TABCR PO (07:40)
[2025-05-21] MEDS: Escitalopram 20 MG TAB PO (07:40)
[2025-05-21] MEDS: Dexamethasone 4 MG TAB PO (07:40)
[2025-05-21] MEDS: Atorvastatin 20 MG TAB PO (07:40)
[2025-05-21] MEDS: Aspirin E.C. 81 MG TABEC PO ×2 (07:40→19:42)
[2025-05-21] MEDS: Acetaminophen 500 MG TAB 1000 MG PO ×3 (07:41→19:41)
[2025-05-21] MEDS: Lisinopril 20 MG TAB PO (07:41)
[2025-05-21] MEDS: buPROPion-XL 150 MG TABCR PO (07:41)
[2025-05-21] MEDS: Celecoxib 200 MG CAP PO ×2 (07:41→19:42)
--- NOTE | 2025-05-21 09:00 | PT.INIE ---
PT Notes Visit Reasons: Bilateral knee DJD Physical Therapy Inpatient Initial Evaluation Date: 05/21/2025 Referring Doctor: Angelina Miller NP/ Dr Shukla PT Orders: PT CONSULT: s/p Ortho surgery Precautions: WBAT BLE Patient Profile/Admitting Diagnosis: Luciano is a 70 yo male presenting s/p elective B TKA under spinal anesthesia on 05/20/[address] Shukla. Post op uncomplicated. Pt is now PO Day #1 . PMHX: Blindness and low vision (Acute) Macular degeneration (Acute) Asthma (Chronic) Hyperlipidemia (Acute) Hypertensive disorder (Chronic) Onychomycosis (Acute) Depression (Chronic) Bilateral primary osteoarthritis of knee (Chronic) depo medrol 06/17/24 Medical History (Updated 05/20/25 @ 13:44 by Eligio Oh CRNA) Aortic stenosis, moderate New on echo 05/20/25. Mild to Moderate Surgical History Hx of knee surgery 1974, R Social History/Home Situation: In an apartment with no stairs to enter. He is independent ambulation with a 4 wheeled walker with seat and brakes. Patient has homemaking services, and groceries delivered from local market. Equipment Owned/DME: Four-wheel walker, wooden cane Subjective: Patient reports he has visual impairments due to macular degeneration. He reports he is feeling better than he was yesterday. Objective: [] General Observation: male appears older than stated age, semireclined in bed with B cryocuff to B knees. Mental Status: Alert and oriented to person, situation. Short-term memory deficits noted Pain: Bilateral knees 4/10 ROM: [] Right Upper Extremity: shoulder flexion to 90 degrees , elbow and hand WNL Left Upper Extremity: Shoulder flexion 60 degrees AAROM, elbow and hand WNL Right Lower Extremity: knee -5 to 100 degrees impaired hamstring length Left Lower Extremity: knee 0-105 Strength: [] Right Upper Extremity: shoulder 3-/5, elbow 4/5, grasp strong Left Upper Extremity: shoulder 2+/5, elbow 3/5, grasp strong Right Lower Extremity: Hip flexion 3-/5, quads 3/5, HS 3-/5 ankle 3/5, fair quad set and straight leg raise with slight lag d/t hamstring length Left Lower Extremity: Hip flexion 3-/5, quads 3/5, HS 3-/5 ankle 3/5,good quad set and straight leg raise with slight lag d/t hamstring length Sensation: intact Bed Mobility/Transfers: [] Supine to sit min A Sit to stand min A of 2 with cues for hand placement and to activate quad Stand to sit CGA and cues for hand placement Bed to chair CGA x 2 with FWW Gait: amb with FWW 20 feet with min A of 1 and CGA of 1 with wheelchair follow Pt required continuous verbal cues for right knee extension/quad activation at mid stance to improve knee stability. Balance: [] Static Sitting: Normal Dynamic Sitting: Fair Static Standing: Fair with BUE support Dynamic Standing: Fair- with BUE support Special Tests: [] Mobility Limitations Standardized Measure [] [facility] AM-PAC 6 clicks Basic Mobility Inpatient Short Form: [] Raw Score: 16 CMS Score: 54.16% Informed Consent/Education: Patient instructed in purpose of PT consult. Treatment: [id number] packet containing TKA exercise protocol has been given to patient. Education and training on initial set of exercises that can be done at home have been completed with patient. Assessment: Luciano presents with impaired hamstring length B LE R>L. He has visual impairments d/t macular degeneration. He has mild cognitive impairment with short term memory deficits. Patient is a 70-year-old male who presents with clinical signs and symptoms consistent with current/admitting diagnoses that have resulted to mobility limitations, gait instability, generalized weakness, and impairment of motor control as demonstrated by the following impairment level findings: 1. Decreased strength/motor control to B knee major muscle groups 2. Impaired standing balance 3. Limitation of joint range of motion in B knee , B shoulders 4. Impaired functional activity tolerance 5. Pain bilateral knees 6. Short-term memory deficits/cognitive impairment Impairments are contributing to the following functional limitations: 1. Inability to safely ambulate without assistive device 2. Increase completion time for mobility ADL performance 3. Increased fall risk 4. Decline in transfer skills 5. Decline in bed mobility skills Patient is assessed as a low complexity based on the following: History: 70-year-old male with impairment level findings, functional limitations, and past medical history as indicated above Examination: Demonstrable impairment in strength, balance, and mobility level with underlying impairments and functional limitations as documented above Presentation: evolving / stable Decision Making: low Goals: 1. Independent bed mobility 2. Modified independent transfers with FWW 3. Modified independent ambulation with FWW >50 feet x 3 4. Supervision home exercise program with written instruction Plan of Care/Treatment Plan: 1-2x/day, 7 days/week x 1 week. Plan of care has been reviewed with the JEWELRY BENCH WORKER providing the service under Physical Therapy direction. Initiate Physical Therapy intervention for strengthening, bed mobility, transfers, gait, stairs, balance training, use of assistive device. DISCHARGE RECOMMENDATIONS:Home with HHPT then outpatient as able TREATMENT CODE/TIME:74294, [id number] Thank you for the opportunity to participate in the care of this patient. Neva Marsh, PT [facility]
--- NOTE | 2025-05-21 09:19 | PDOC.CMDIS ---
Date of service: 05/21/25 Time of Service: 09:19 LACE Index Scoring Tool Questions: Length of Stay (in days): 1 Was the patient admitted via the E.D.?: No E.D. Visits: 0 Answers: Total Score: 1 Risk of Readmission: Low Risk Care Management Discharge Plan Reason for Hospitalization: Bilateral knee DJD Discharge Plan: Luciano will discharge home SDOH Health Related Social Needs: Health related social needs lonely/isolated Health related social needs details Patient lost over two years ago, patient stated it is very hard to get over, but he is trying to move on. Health related social needs details: Patient lost over two years ago, patient stated it is very hard to get over, but he is trying to move on.
--- NOTE | 2025-05-21 10:06 | INITIAL_ITS ---
Date of service: 05/21/25 Time of Service: 13:33 Care Management Initial Assmt Initial Assessment Reason for Hospitalization: Bilateral knee DJD Functional Status/Living Situation Patient Presentation: Luciano, who prefers to be called Ed, was lying in bed when CM met with him following his scheduled bilateral total knee replacement. He was pleasant, cooperative, and willing to engage in conversation. Ed currently resides alone in an independent living apartment at [facility] in [place], [place]. He moved into the apartment complex approximately two years ago after the pass ing of his . Ed shares he is originally from [place], Ed relocated to [place] some time ago and has since built a supportive social network within the local community. Ed shared that he has one son who lives in [place], [place], but no other family nearby. He reports having made many local friends and is actively involved in his baptism and they are a good support for him; Ed shares alternating baptism members are his primary support for transportation. In addition, Ed is connected to the [facility] and currently receives services through the [facility] program. His family preservation caseworker is named Fadumo, although Ed could not recall her last name or contact information. Through [facility], he states he receives assistance with showering and light housekeeping. Ed is also receiving physical therapy through [facility] three times per week. During his hospital stay, he worked cooperatively with physical therapy, and the current recommendation is to continue with home health PT upon discharge. Ed expressed full agreement with this plan and stated, ?I?ll do whatever is recommended.? CM will continue to follow. 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 ) Instrumental Activities of Daily Living (ADLs): Independent Activities/Hobbies/SocialSupport: he enjoys playing music, he is in his baptism's band Medications Medication Management: No Issues/Barriers identified Physical Functioning/Mobility Assistive Device: has a 4WW, and wooden cane Advance Directives Advance Directives: Do you have an Advance Directive: N Today, 05:11 AD On File at [facility]: N 01/31/25, 20:57 Date Asked 05/20/25 Today, 05:11 AD Date Reviewed COLST On File at [facility] COLST Date Scanned Code Status Resuscitation Status Full Code Portal Pt does not currently have a portal and education provided: Yes Insurance Coverage/Financial Issues Insurance: Medicare Part A & B - [id number] Medicaid [facility] - [id number] Care Team Visit Care Team Role Provider Type Vicki Gill Primary Care Provider [employer] MANAGER [facility]Patient [facility] Other Providers OTHER Miguelangel Shukla MD Admit Provider [facility] STAFF PHYSICIAN Attending Provider Discharge Potential Discharge Needs: PT Evaluation, PCP F/U Appt and Surgical F/U Appt Anticipated Barriers to Discharge: None Identified Patient/Family Education Needs: Review discharge instructions, discuss Ask Me Three Transportation: Private vehicle Plan: Anticipate Luciano will be discharged home with resumption of [facility] HH PT vs SNF once medically ready for discharge. It is recommended he follow up with his community providers and continue per his discharge plan of care. He will be transported via private vehicle by baptism friends. CM will continue to follow. Social Determinants of Health Screening Will the Patient Participate in the Screening?: Unable to obtain Do you worry about having a steady place to live?: no In the past 12 months, have you had to go without electric, gas, oil or water in your home?: no 1. Within the past 12 months, we worried whether our food would run out before we got money to buy more.: Never true 2. Within the past 12 months, the food we bought just didn't last and we didn't have money to get more.: Never true Has lack of transportation kept you from medical appointments or from doing things needed for daily living?: no Has anyone in your life made you feel unsafe or unsupported?: no How hard is it for you to pay for the very basics like food, housing, medical care, and heating? Would you say it is:: Not hard at all Do you want help finding or keeping work or a job?: I do not need or want help If for any reason you need help with day-to-day activities such as bathing, preparing meals, shopping, managing finances, etc., do you get the help you nee d?: I don?t need any help How often do you feel lonely or isolated from those around you?: Rarely Do you speak a language other than Gambian at home?: No Does the patient want assistance with any of the above?: No Health Related Social Needs Health related social needs: feeling lonely/isolated (Z60.8) Health related social needs details: Patient lost over two years ago, patient stated it is very hard to get over, but he is trying to move on. PFSH All Active Problems (Updated 05/20/25 @ 13:44 by Eligio Oh CRNA) Blindness and low vision (Acute) Macular degeneration (Acute) Asthma (Chronic) Hyperlipidemia (Acute) Hypertensive disorder (Chronic) Onychomycosis (Acute) Depression (Chronic) Bilateral primary osteoarthritis of knee (Chronic) depo medrol 06/17/24 Medical History (Updated 05/20/25 @ 13:44 by Eligio Oh CRNA) Aortic stenosis, moderate New on echo 05/20/25. Mild to Moderate Surgical History Hx of knee surgery 1974, R Social History Smoking/Tobacco Use Status: Former Tobacco Use Quit Date: 08/28/89 Smoking risk assessment performed?: Yes Alcohol Intake: former Drug use: Never Substance use type: does not use Housing: apartment Do you feel safe at home: Yes Additional Social history: Live alone Readmission Within the Past 30 Days Yes or No: No
--- NOTE | 2025-05-21 12:46 | CHAPLAIN ---
Michael had bilateral knee surgery yesterday and told me he's doing really well today. He also said that he's a Faith and attends a [facility] in [place], [place] where he lives. He's very optimistic about his recovery and said he has the help of visiting nurses and a pump house operator at home. Michael was pleasant and easily engaged in conversation. I explained my role and offered support.
--- NOTE | 2025-05-21 12:57 | PGE_ITS ---
Date of Service Date of service: 05/21/25 Time of Service: 07:20 Assessment and Plan Assessment and plan (1) Bilateral primary osteoarthritis of knee: Status: Chronic Assessment and plan: Dolng well. No pain. Start PT. WBAT. (2) Urinary retention: Status: Acute Assessment and plan: Continue to check PVR. Bladder scan if no void and straight cath for volume > 450cc. Start Tamsulosin. (3) Hypotension: Status: Acute Assessment and plan: Moderate hemoglobin drop after the surgery. Asymptomatic. Hold lisinopril. 1L LR bolus. Recheck Hgb in the morning. Subjective Subjective Interval history since last seen: Overall, Luciano reports to be doing well. He has no pain. He has had some difficulty with urinating. No chest pain or shortness of breath. No abdominal pain. Little UOP. Has had trending low blood pressures although without symp toms of lightheadedness or chest pain. Exam Narrative Exam Narrative: Supine in the hospital bed. NAD. AAOx3 Bilateral legs with c/d/i dressings. Able to SLR. +ADF/APF/EHL/FHL SILT SP/DP/Tib Objective Last Vital Signs Temp 36.2 C L 05/21/25 11:38 Pulse 66 05/21/25 11:38 Resp 16 05/21/25 11:38 BP 72/58 L 05/21/25 11:42 Pulse Ox 93 05/21/25 11:38 Laboratory Results - last 24 hr 05/21/25 05/21/25 06:02 06:08 WBC 14.62 H RBC 3.43 L Hgb 10.9 L Hct 32.8 L MCV 96 H MCH 31.8 MCHC 33.2 RDW 12.9 Plt Count 177 MPV 9.7 Sodium 141 Potassium 4.9 Chloride 104 Carbon Dioxide 33.0 H Anion Gap 4.0 BUN 25 H Creatinine 0.9 Est GFR (CKD-EPI 2020) 90.74 Glucose 140 H Calcium 8.4 L Time Spent with Patient Time Spent with Patient: <25 minutes Time was spent: preparing to see the patient(eg.review tests), obtaining and/or reviewing separately otained hiistory, ordering medications,tests, procedures, indepentently interpreting results and counseling the patient
[2025-05-21] MEDS: Lactated Ringers 1,000 ML 1000 ML IV (13:04)
--- NOTE | 2025-05-21 14:39 | PHA.REVIEW2 ---
Pharmacy Admission Review Admission Clinical Review Admission Pharmacy Review: No Known Allergies Allergy (Verified 05/20/25 10:38) Resuscitation Status Full Code Height 5 ft 10 in Weight 127.006 kg Comments Comments/Follow Ups: POD#1 Bilateral Total Knee Replacement with Intraoperative Navigation. Follow up on home med questions Pharmacy Admission Review Renal Dosing Renal Dosing: BUN 25 mg/dL (7-18) H 05/21/25 06:02 Creatinine 0.9 mg/dL (0.70-1.30) 05/21/25 06:02 Medications needing adjustments: Reviewed (CrCl 89.35 mL/min) List of meds needing interventions: Current medications are okay Anticoagulation Anticoagulation: Hgb 10.9 g/dL (13.5-17.5) L 05/21/25 06:08 Hct 32.8 % (40.0-50.0) L 05/21/25 06:08 Plt Count 177 10^3/uL (130-400) 05/21/25 06:08 Creatinine 0.9 mg/dL (0.70-1.30) 05/21/25 06:02 DVT Prophylaxis: Reviewed (SCDs/TEDs) Opiate Usage Evaluate Pain Scale/Pains Meds: Reviewed (hydromorphone 0.5mg IVP q2h PRN - no doses given) Relevant Labs Relevant Labs: Sodium 141 mmol/L (136-145) 05/21/25 06:02 Potassium 4.9 mmol/L (3.5-5.1) 05/21/25 06:02 Chloride 104 mmol/L (98-107) 05/21/25 06:02 Electrolytes, C-Reactive P, ESR: Reviewed (WBC 14.62) Cardiac Review Cardiac Review: Blood Pressure 97/69 1432 Blood Pressure 72/58 1142 Blood Pressure 73/60 1138 Blood Pressure 99/69 0733 Blood Pressure 134/72 0323 BP, HR, EF%: Reviewed (HR 97) List meds needing interventions: Has order for lisinopril 20mg daily QTc Review QTc: Reviewed (441 from 05/20/25) IV to PO Switch IV Medications: Reviewed (cefazolin and hydromorphone) Home Meds Home Med List reviewed: Intervened Relevent Home Meds Not ordered & why?: vitamin D3, ibuprofen (PRN) Recently filled atorvastatin 40mg daily but has 20mg daily on home med list. Per nurse patient is unsure what dose they take at home. Updated home med list to 40mg daily based on fill history. Reached out to provider, waiting to hear back. Recently filled timolol eye drops but not on home med list. Nurse confirmed with patient that they do use this at home. Reached out to provider, waiting to hear back. Breo inhaler brought down to pharmacy, verified, labeled and sent back up to floor. Current Meds Current Medication Order Review: Intervened Comments: Discontinued PACU orders Added IV access order Comments Comments/Follow Ups: POD#1 Bilateral Total Knee Replacement with Intraoperative Navigation. Follow up on home med questions
--- NOTE | 2025-05-21 14:58 | PT.INTREAT ---
PT Notes Visit Reasons: Bilateral knee DJD Inpatient Physical Therapy Treatment Note [facility] Date: 05/21/25 PRECAUTIONS: fall, standard SUBJECTIVE: Ed states that he's feeling well. Has no pain at rest. Looking forward to walking this afternoon. OBJECTIVE: ? PAIN: 0/10 at rest VITALS: ?Supine : 93/63, HR 79 ? Sittin/56, HR 89. Increases to 104/50 with 5 minutes of sitting Therapeutic Activities (04790p5): Direct one-on-one instruction in dynamic activities to improve functional performance. ? BED MOBILITY/TRANSFERS? close monitoring of vitals throughout ? Scooting in bed: supervision with bilat hand rails Supine-sit: supervision? Sit-supine: min A to LEs ? Sit-stand: mod A, with multiple attempts and bed elevated ~4? Stand-sit: CGA ? GAIT? Assistive Device: ? Weight bearing: WBAT Assist: CGA ? Distance:? 30' ? Deviation: heavy reliance on UE support to FWW. Lacking TKE bilat, with 10* flexion in standing ? Therapeutic Exercises (14390w8): Direct one-on-one instruction in therapeutic exercises to develop strength, endurance, range of motion and flexibility. ? Exercises ? LAQ 10x each ankle pumps in sitting 10x each seated march 10x sit-stand: several attempts from various seat heights. Requires mod A from elevated bed for 2 reps static stand x 2 minutes for BP monitoring prior to ambulation Actively demonstrates -5* knee extension in open chain, 100* flexion bilat ASSESSMENT:? Requiring assistance for transfers and ambulation. Increased time to perform all transfers to allow for BP monitoring due to low BP readings. PLAN: Continue PT intervention to maximize safety and independence. TREATMENT CODE/TIME: 9406-6508 DISCHARGE RECOMMENDATION: PT Caitlin Gray, PT, DPT [facility]
--- NOTE | 2025-05-21 15:18 | PT.INTREAT ---
PT Notes Visit Reasons: Bilateral knee DJD Inpatient Physical Therapy Treatment Note [facility] Date: 05/21/25 SUBJECTIVE: Luciano states that he is ready to exercise so he can get back home. OBJECTIVE: []? VITALS: ?monitored by nsg. BP is low and currently getting a bolus ? Therapeutic Exercises (51648y4): Direct one-on-one instruction in therapeutic exercises to develop strength, endurance, range of motion and flexibility. ? Exercises ?AP, QS, SLR, hip ABD/ADD, heel slides, bridge x10 each. held on getting out of bed until later time due to low BP. ASSESSMENT:?tolerated session well. Needed reminders to maintain QS t/o routine. lacking approx 5 degrees of TKE on the right. Able to achieve approx 125 degrees of flexion with heel slides today. He ambulated with Caitlin Liu PT later in pm, see her note for details. PLAN: continue to progress strength and functional mobility to tolerance following PT POC. TREATMENT CODE/TIME: 20 min (71414u3) DISCHARGE RECOMMENDATION: home with HHPT
[2025-05-21] MEDS: Gabapentin 300 MG CAP PO (19:41)
[2025-05-21] MEDS: Tamsulosin 0.4 MG CAPCR PO (19:41)
[2025-05-22] VITALS (10 sets, daily range): BP systolic 69–92; BP diastolic 40–65; PULSE 66–100; RESP 16–18; TEMP 36–37.3; O2SAT 86–96
[2025-05-22 06:39] LABS: HCT 25.4 % (40.0-50.0); HGB 8.6 g/dL (13.5-17.5); MCH 32.2 pg (27.0-33.0); MCHC 33.9 % (32.0-36.0); MCV 95 fL (80-95); MPV 10.1 fL (8.0-11.0); Platelet Count 138 10^3/uL (130-400); RBC 2.67 10^6/uL (4.36-5.78); RDW 13.1 % (11.8-14.1); RDW-SD 45.6 fL; WBC 11.42 10^3/uL (4.4-10.8)
[2025-05-22 07:01] LABS: Anion Gap 4.1 mmol/L (3-11); BUN 40 mg/dL (7-18); CO2 30.9 mmol/L (21.0-32.0); Calcium 8.0 mg/dL (8.5-10.1); Chloride 106 mmol/L (98-107); Estimated GFR 64.25 (mL/min/1.73m2); Glucose 113 mg/dL (74-106); Potassium 4.2 mmol/L (3.5-5.1); Sodium 141 mmol/L (136-145)
[2025-05-22] MEDS: Escitalopram 20 MG TAB PO (08:23)
[2025-05-22] MEDS: Dexamethasone 4 MG TAB PO (08:23)
[2025-05-22] MEDS: Acetaminophen 500 MG TAB 1000 MG PO ×2 (08:23→15:38)
[2025-05-22] MEDS: Celecoxib 200 MG CAP PO ×2 (08:23→19:34)
[2025-05-22] MEDS: buPROPion-XL 150 MG TABCR PO (08:23)
[2025-05-22] MEDS: Atorvastatin 20 MG TAB PO (08:23)
[2025-05-22] MEDS: Aspirin E.C. 81 MG TABEC PO ×2 (08:24→19:34)
[2025-05-22] MEDS: Pantoprazole 40 MG TABCR PO (08:38)
--- NOTE | 2025-05-22 09:08 | PT.INTREAT ---
PT Notes Visit Reasons: Bilateral knee DJD Inpatient Physical Therapy Treatment Note [facility] Date: 05/22/25 PRECAUTIONS:Standard Therapeutic Activities (81504f[]): Direct one-on-one instruction in dynamic activities to improve functional performance. ? BED MOBILITY/TRANSFERS? Sit-stand: Modx2 ? Stand-sit: CGAx2 ? Provided skilled cues and instruction on performance and technique throughout. Gait Training (48616f[]): Direct one-on-one instruction and skilled instruction in: [] employing an assistive device [] modified weight-bearing status [] movement sequencing [] turning and movement with proper form [] Provided verbal cues for equipment management and technique [X] Provided instruction in gait pattern [] Patient education regarding pacing and breathing techniques to maximize activity tolerance? GAIT? Assistive Device: FWW? Weight bearing: WBAT Assist: Minx2 with vc's to straighten legs? Distance:? Chair to door and back ? ASSESSMENT:? Pt was fatigued post ambulation. PLAN: Cont as per PT POC TREATMENT CODE/TIME: 98:45-9:05 TA DISCHARGE RECOMMENDATION: []
--- NOTE | 2025-05-22 10:22 | PDOC.CMPRO ---
Date of service: 05/22/25 Time of Service: 10:22 Care Management Progress Note Progress Note Text Progress Note Text: Ed was awake and sitting up in bed eating lunch when CM met with him. He had bilateral total knee replacement with intraoperative navigation on 05/22/25. He reports that he is happy to be here and is motivated to do whatever it takes to regain his mobility. Dr. Shukla strongly recommends STR once he is medically ready and Ed is very agreeable with this plan. Referrals are being sent to [facility], and [facility] in anticipation of patient becoming medically ready early next week. CM will continue to follow. Discharge Potential Discharge Needs: Consult, PCP F/U Appt and Surgical F/U Appt (Ortho) Anticipated Barriers to Discharge: None Identified Patient/Family Education Needs: Review discharge instructions, discuss Ask Me Three Transportation: RCT RCT Transportation: Wheel chair van Plan: Dr. Shukla strongly recommends STR and patient is agreeable. Referrals are pending at [facility], and [facility]. Ed will follow up with community providers and continue per his discharge plan of care. Ed will require RCT wheelchair van for transportion. CM will follow. Social Determinants of Health Screening Will the Patient Participate in the Screening?: Unable to obtain Do you worry about having a steady place to live?: no In the past 12 months, have you had to go without electric, gas, oil or water in your home?: no Has lack of transportation kept you from medical appointments or from doing things needed for daily living?: no Has anyone in your life made you feel unsafe or unsupported?: no How hard is it for you to pay for the very basics like food, housing, medical care, and heating? Would you say it is:: Not hard at all Do you want help finding or keeping work or a job?: I do not need or want help If for any reason you need help with day-to-day activities such as bathing, preparing meals, shopping, managing finances, etc., do you get the help you need?: I don?t need any help How often do you feel lonely or isolated from those around you?: Rarely Do you speak a language other than Indonesian at home?: No Does the patient want assistance with any of the above?: No Health Related Social Needs Health related social needs: feeling lonely/isolated (Z60.8) Health related social needs details: Patient lost over two years ago, patient stated it is very hard to get over, but he is trying to move on.
--- NOTE | 2025-05-22 13:02 | W.PM.PROGNOT ---
Date of Service Date of service: 05/22/25 Time of Service: 13:02 Assessment and Plan Assessment and plan (1) Bilateral primary osteoarthritis of knee: Status: Chronic Assessment and plan: Dolng well. No pain. Continue with physical therapy. I have encouraged him to work on his terminal knee extension. He had significant flexion contractures about both knees leading up to the surgery which unfortunately has made the muscles somewhat deficient and the more extended position. I discussed how to do these exercises with him this morning and reviewed once again today. I have encouraged physical therapy to work on terminal extension and quadricep strengthening. Unfortunately, it this resistance for terminal extension and the subjective weakness may necessitate need for discharge to rehabilitation facility. (2) Urinary retention: Status: Acute Assessment and plan: Tamsulosin was started yesterday. He still has not had any substantial void. He could be dehydrated. However, I am concerned about his urine retention and think that a Charles catheter be the best option for draining his bladder but also maintaining accurate input and output.. (3) Hypotension: Status: Acute Assessment and plan: Moderate hemoglobin drop after the surgery. Asymptomatic. However, he still with persistent hypotension that has not responded to other methods. Given the drop in hemoglobin, blood loss, I would recommend a unit of blood. This was ordered. Given the complexity of this case and the issues that we are experiencing I would have a hospitalist consult to make sure were not missing anything or in his management. Subjective Subjective Interval history since last seen: Ed overall reports no significant pain. He did try to ambulate once again today but felt some instability and concern for falling. He has not been able to void more than about 90 cc. His bladder scan has continued to increase, now with 390 cc. He also has been persistently hypotensive although asymptomatic. I saw him briefly this morning as well and he was having difficulties with extension of the knees. However, he has been work on the exercises I recommended and this is getting better. Exam Narrative Exam Narrative: Sitting up in the bed. No acute distress. Alert and orient x 3. Alonzo wrap's are taken down from bilateral knees. There is some swelling about both legs, slightly worse on the right side. No significant ecchymosis. He is resistant to perform a straight leg raise although is able to do so with a lag of about 20 degrees. However, if I placed the leg in full extension, passively getting to within a few degrees of full extension, he is able to contract the quad, elevated patella, and keep the leg here against gravity. This is the same for both sides. The knees are stable to varus and valgus stress. Sensation intact to light touch over the deep and superficial peroneal nerve. Objective Last Vital Signs Temp 36.6 C 05/22/25 13:01 Pulse 100 H 05/22/25 13:01 Resp 18 05/22/25 13:01 BP 69/57 L 05/22/25 13:01 Pulse Ox 91 L 05/22/25 13:01 Laboratory Results - last 24 hr 05/22/25 05/22/25 05/22/25 06:11 06:33 08:51 WBC 11.42 H RBC 2.67 L Hgb 8.6 L D Hct 25.4 L MCV 95 MCH 32.2 MCHC 33.9 RDW 13.1 Plt Count 138 MPV 10.1 Sodium 141 Potassium 4.2 Chloride 106 Carbon Dioxide 30.9 Anion Gap 4.1 BUN 40 H Creatinine 1.2 Est GFR (CKD-EPI 2020) 64.25 Glucose 113 H Calcium 8.0 L ABO/Rh A Positive Blood Type Recheck A Positive Antibody Screen NEGATIVE Crossmatch See Detail Time Spent with Patient Time Spent with Patient: 25-34 minutes Time was spent: preparing to see the patient(eg.review tests), obtaining and/or reviewing separately otained hiistory, ordering medications,tests, procedures, referring, communicating with other health nurse care manager, counseling the patient and care coordination
--- NOTE | 2025-05-22 13:51 | W.MEDCONSULT ---
Date of service: 05/22/25 Time of Service: 13:52 Assessment and Plan Assessment and plan (1) Anemia: Status: Chronic Assessment and plan: Patient has noted to have decrease in his hemoglobin over the last 48 hours. Patient did have some blood loss during his procedure and is getting transfusion. Classically an elevated BUN to creatinine equals dehydration versus GI bleed. Patient has no history of GI bleeds but has been taking NSAIDs. Will do a Hemoccult check x 3. Of note the patient also is not had colonoscopy. Agree with transfusion. He does have an elevated are least high normal MCV so we will check a B12 folate iron and TIBC. The patient's recent echocardiogram did show a fairly robust EF so giving some fluid would probably be okay. Will see how he responds to the transfusion of her cell. (2) Hypertensive disorder: Status: Chronic Assessment and plan: Hold medications for now. (3) Hyperlipidemia: Status: Acute Assessment and plan: Continue with medical management (4) Hypotension: Status: Acute Assessment and plan: Monitor will check vitals after transfusion. (5) Macular degeneration: Status: Acute Assessment and plan: Patient is scheduled for surgery in the coming months (6) Urinary retention: Status: Acute Assessment and plan: Check a PSA and will add Flomax. (7) Bilateral primary osteoarthritis of knee: Status: Chronic Assessment and plan: Defer to orthopedic team (8) Aortic stenosis, moderate: Assessment and plan: The patient does have at least mild to moderate aortic stenosis. He is currently asymptomatic. Defer further workup to the outpatient setting. (9) Elevated MCV: Status: Acute Assessment and plan: As above dvtp per primary History of Present Illness History of Present Illness Chief Complaint: anemia/tachycardia/low bp Narrative: This is a 70-year-old gentleman who I was asked to see by orthopedic surgery Dr. Shukla. Patient is status post bilateral knee replacements and since his recovery has been noted to have hypotension as well as some tachycardia. In reviewing his labs he does have what appears to be anemia with a hemoglobin of 8.6 and hematocrit of 25. Preoperative labs drawn on 05/21/2025 did show hemoglobin of 10.9 and hematocrit of 32.8. Patient was noted to have an elevated MCV to at 96. In terms of the patient's CMP he does have an elevation in his BUN to creatinine ratio and it is currently at 40/1.2 when it was 25/0.9. The patient is completely asymptomatic. Patient denies any history of chest pain shortness of breath. In regards to bleeding, the patient did have approximately 750 cc of blood loss during his operation. Patient denies any hematuria hematemesis hemoptysis bright red blood per rectum or hematochezia. Patient has never had a colonoscopy. Patient states that he has been using ibuprofen to help relieve his knee pains. Patient states he uses the medications with food as instructed. In reviewing further data his EKG shows what looks like a right bundle branch block. His echocardiogram did show an EF of 60% but moderate aortic stenosis. The patient is currently getting 1 unit of red blood cells. This is secondary to decreasing hemoglobin in the setting of hypotension and tachycardia. Review of Systems All systems reviewed & are unremarkable except as noted in HPI and below PFSH All Active Problems (Updated 05/22/25 @ 13:58 by Rachid Torres MD) Elevated MCV (Acute) Anemia (Chronic) Hypotension (Acute) Urinary retention (Acute) Blindness and low vision (Acute) Macular degeneration (Acute) Asthma (Chronic) Hyperlipidemia (Acute) Hypertensive disorder (Chronic) Onychomycosis (Acute) Depression (Chronic) Bilateral primary osteoarthritis of knee (Chronic) s/p Bilateral TKA (05/20/25) depo medrol 06/17/24 Medical History (Updated 05/22/25 @ 13:58 by Rachid Torres MD) Aortic stenosis, moderate New on echo 05/20/25. Mild to Moderate Surgical History Hx of knee surgery 1974, R Social History Smoking/Tobacco Use Status: Former Tobacco Use Quit Date: 08/28/89 Smoking risk assessment performed?: Yes Alcohol Intake: former Drug use: Never Substance use type: does not use Housing: apartment Do you feel safe at home: Yes Additional Social history: Live alone Exam Narrative Exam Narrative: HEENT-normocephalic atraumatic mucous membranes moist oropharynx is clear Neck-no lymphadenopathy no JVD no thyromegaly Cardiovascular-distant but 2 out of 6 stock ejection murmur Lungs-clear to auscultation bilaterally good air exchange Abdomen-soft nontender nondistended bowel sounds active Neurologic-cranial nerves II through XII intact as tested reflexes upper extremity normal as tested Psych-alert and oriented x 3 no apparent distress Lower extremities-has significant venous stasis change bilaterally.Knees bandaged bilat Results Last Vital Signs Temp 36.6 C 05/22/25 13:01 Pulse 100 H 05/22/25 13:01 Resp 18 05/22/25 13:01 BP 69/57 L 05/22/25 13:01 Pulse Ox 91 L 05/22/25 13:01 Labs 05/22/25 06:11 05/22/25 06:11 Labs: Laboratory Results - last 24 hr 05/22/25 05/22/25 05/22/25 06:11 06:33 08:51 WBC 11.42 H RBC 2.67 L Hgb 8.6 L D Hct 25.4 L MCV 95 MCH 32.2 MCHC 33.9 RDW 13.1 Plt Count 138 MPV 10.1 Sodium 141 Potassium 4.2 Chloride 106 Carbon Dioxide 30.9 Anion Gap 4.1 BUN 40 H Creatinine 1.2 Est GFR (CKD-EPI 2020) 64.25 Glucose 113 H Calcium 8.0 L ABO/Rh A Positive Blood Type Recheck A Positive Antibody Screen NEGATIVE Crossmatch See Detail
--- NOTE | 2025-05-22 14:50 | PT.INTREAT ---
PT Notes Visit Reasons: Bilateral knee DJD Date: 05/22/2025 PRECAUTIONS: Fall, standard, Activity as tolerated. SUBJECTIVE: pt in bed when approached for therapy this afternoon, pt agrees to participating with therapy intervention. OBJECTIVE: Blood transfusion on right UE, incision on Bknee, ? VITALS: monitored by nursing Therapeutic Activities 56065: Direct one-on-one instruction in dynamic activities to improve functional performance. ?? BED MOBILITY/TRANSFERS? Rolling L/R: supervision Supine-sit: ?SBA ? Sit-supine: ? SBA? Sit-stand: ?CGA ? Stand-sit: ?CGA? Provided skilled cues and instruction on performance and technique throughout. ? Therapeutic Exercises 80110: Direct one-on-one instruction in therapeutic exercises to develop strength, endurance, range of motion and flexibility. Exercises Sit to stand 5x Walking 5' sideways Walking 5' forward Walking 5' backwards Standing marching in place Static standing 1min Standing heel, toe raises Provided skilled instruction in proper exercise performance Provided skilled manual cues to facilitate proper muscle recruitment and/or form: ASSESSMENT:?pt tolerated activity well, pt initially anxious about his knee buckling but was able to complete session without episode of instability. pt able to reposition himself in bed after session. PLAN: Continue with balance training, global strengthening and general conditioning for improved safety, mobility and activity tolerance until pt is ready for DC. TREATMENT CODE/TIME: 54670x5, 87819t2 30mins (12:55-1:25pm)
[2025-05-22] MEDS: Lactated Ringers 1,000 ML 1000 ML IV (17:05)
[2025-05-22] MEDS: Gabapentin 300 MG CAP PO (19:34)
[2025-05-22] MEDS: Tamsulosin 0.4 MG CAPCR PO (19:34)
[2025-05-23] VITALS (7 sets, daily range): BP systolic 77–117; BP diastolic 54–63; PULSE 66–95; RESP 16–22; TEMP 36.6–37; O2SAT 91–93
[2025-05-23] MEDS: Docusate Sodium 100 MG CAP PO (06:52)
[2025-05-23] MEDS: Pantoprazole 40 MG TABCR PO (06:53)
[2025-05-23] MEDS: oxyCODONE 5 MG TAB PO (06:53)
[2025-05-23 07:14] LABS: Abs Immature Grans 0.08 10^3/uL (0.0-0.06); HCT 26.8 % (40.0-50.0); HGB 9.0 g/dL (13.5-17.5); MCH 32.4 pg (27.0-33.0); MCHC 33.6 % (32.0-36.0); MCV 96 fL (80-95); MPV 10.2 fL (8.0-11.0); Platelet Count 146 10^3/uL (130-400); RBC 2.78 10^6/uL (4.36-5.78); RDW 13.5 % (11.8-14.1); RDW-SD 47.8 fL; WBC 10.41 10^3/uL (4.4-10.8)
[2025-05-23 08:00] LABS: Immature Grans % 0.0 %; RBC Morphology Normal
[2025-05-23 08:01] LABS: Iron 24 ug/dL (65-175); Total Iron Binding Capacity 164 ug/dL (250-450); Transferrin Sat 15 % (20-55)
--- NOTE | 2025-05-23 08:07 | CMPROGNOTE_ITS ---
Date of service: 05/23/25 Time of Service: 08:07 Care Management Progress Note Progress Note Text Progress Note Text: Ed underwent bilateral total knee replacement with intraoperative navigation on 05/22/25. Postoperatively he developed anemia, hypotension and tachycardia; and the Hospitalist service is following for medical management. He is currently working with PT and is a heavy 2 person assist. Ed denies concerns at this time, he remains motivated to walk again and is very appreciative of the care he has been receiving. From an Orthopedic standpoint, the patient has been cleared; however, has not been cleared medically. The plan remains for patient to transition to SNF for STR once he is medically stable. Referrals are pending at [facility], [facility], and [facility]. CM will follow. Discharge Potential Discharge Needs: Surgical F/U Appt (Ortho) Anticipated Barriers to Discharge: None Identified Patient/Family Education Needs: Review discharge instructions, discuss Ask Me Three Transportation: RCT RCT Transportation: Wheel chair van Plan: Needs STR once medically stable. Referrals are pending at [facility], [facility], and [facility]. Ed will follow up with community providers and continue per his discharge plan of care. Ed will require RCT wheelchair van for transportation. CM will follow. Social Determinants of Health Screening Will the Patient Participate in the Screening?: Unable to obtain Do you worry about having a steady place to live?: no In the past 12 months, have you had to go without electric, gas, oil or water in your home?: no Has lack of transportation kept you from medical appointments or from doing things needed for daily living?: no Has anyone in your life made you feel unsafe or unsupported?: no How hard is it for you to pay for the very basics like food, housing, medical care, and heating? Would you say it is:: Not hard at all Do you want help finding or keeping work or a job?: I do not need or want help If for any reason you need help with day-to-day activities such as bathing, preparing meals, shopping, managing finances, etc., do you get the help you need?: I don?t need any help How often do you feel lonely or isolated from those around you?: Rarely Do you speak a language other than [place] at home?: No Does the patient want assistance with any of the above?: No Health Related Social Needs Health related social needs: feeling lonely/isolated (Z60.8) Health related social needs details: Patient lost over two years ago, patient stated it is very hard to get over, but he is trying to move on.
[2025-05-23 08:24] LABS: ALT 17 U/L (16-63); AST 20 U/L (15-37); Albumin 2.8 g/dL (3.4-5.0); Alkaline Phosphatase 53 U/L (46-116); Anion Gap 4.6 mmol/L (3-11); BUN 40 mg/dL (7-18); Bilirubin, Total 0.9 mg/dL (0.2-1.0); CO2 32.4 mmol/L (21.0-32.0); Calcium 8.2 mg/dL (8.5-10.1); Chloride 106 mmol/L (98-107); Estimated GFR 79.97 (mL/min/1.73m2); Folate 4.8 ng/mL (8.6-20.0); Glucose 109 mg/dL (74-106); Potassium 4.0 mmol/L (3.5-5.1); Sodium 143 mmol/L (136-145); Total Protein 5.8 g/dL (6.4-8.2); Vitamin B12 281 pg/mL (193-986)
[2025-05-23] MEDS: Escitalopram 20 MG TAB PO (08:57)
[2025-05-23] MEDS: Polyethylene Glycol 3350 17 GM PACKET PO (08:57)
[2025-05-23] MEDS: Atorvastatin 20 MG TAB PO (08:57)
[2025-05-23] MEDS: Aspirin E.C. 81 MG TABEC PO ×2 (08:57→19:44)
[2025-05-23] MEDS: Celecoxib 200 MG CAP PO ×2 (08:57→19:44)
[2025-05-23] MEDS: Acetaminophen 500 MG TAB 1000 MG PO ×3 (08:57→19:44)
[2025-05-23] MEDS: buPROPion-XL 150 MG TABCR PO (08:57)
[2025-05-23] MEDS: Lisinopril 20 MG TAB PO (08:57)
[2025-05-23] MEDS: Normal Saline Flush 10 ML SYR IVP (08:58)
--- NOTE | 2025-05-23 10:26 | PTTR_ITS ---
PT Notes Visit Reasons: Bilateral knee DJD Date: 05/23/2025 PRECAUTIONS: Fall, standard, Activity as tolerated. SUBJECTIVE: pt in bed when approached for therapy this morning, pt agrees to participating with therapy intervention. pt agreed to be seen for a second time later this morning. PAIN: none at rest, 1-2/10 with activity ? VITALS: monitored by nursing Therapeutic Activities 99582: Direct one-on-one instruction in dynamic acti vities to improve functional performance. ?? BED MOBILITY/TRANSFERS? Rolling L/R: supervision Supine-sit: ?SBA ? Sit-supine: ? SBA? Sit-stand: ?CGA ? Stand-sit: ?CGA? Provided skilled cues and instruction on performance and technique throughout. Gait Training 36058: Direct one-on-one instruction and skilled instruction in: Employing an assistive device Modified weight-bearing status Movement sequencing Turning and movement with proper form Provided verbal cues for equipment management and technique Provided instruction in gait pattern Patient education regarding pacing and breathing techniques to maximize activity tolerance? GAIT? Assistive Device: ??FWW? Weight bearing: WBAT Assist: CGA 1st session, SBA 2nd session? Distance:?? 20'x4 am 1st, 30'x4 am 2nd ? Deviation: ?antalgic gait? Neuro Re-education 64596 mins: to improve balance, coordination, kinesthetic and proprioceptive sensations. ? Treatment: ? ? ? Sit to stand from elevated bed [id number] with cue for quad set and glute set Static standing balance activity with pt emphasis on terminal knee extension Standing balance activity doing multidirectional lean transfer going in and out of recliner with cue for safety by being close enough to edge of chair before sitting and reaching behind for controlled descent. ? ASSESSMENT:?pt showing improved confidence with walking with FWW, pt cue for terminal knee extension during stance with pt showing good effort to comply. pt with increased tolerance to longer duration and longer distance coverage on second session. PLAN: Continue with balance training, global strengthening and general conditioning for improved safety, mobility and activity tolerance until pt is ready for DC. TREATMENT CODE/TIME: 28622y7, 72934t9 35mins (9:20-9:55am), 80395u0, 02758n7 30mins (10:45-11:15am)
--- NOTE | 2025-05-23 13:17 | PGE_ITS ---
Date of Service Date of service: 05/23/25 Time of Service: 13:52 Assessment and Plan Assessment and plan (1) Bilateral primary osteoarthritis of knee: Status: Chronic Assessment and plan: Overall patient is doing well postoperatively with reported minimal discomfort. Recommend continue working with physical therapy. Patient will continue working on range of motion. Dr. Shukla had previously discussed need to continue with physical therapy working on terminal extension as well as quadricep strengthening as well as possibility if he continued to have issues for rehabi litation facility. (2) Urinary retention: Status: Acute Assessment and plan: Charles was placed last evening -last measured output in Charles was 400cc yesterday afternoon; dark urine was present in bag at time of evaluation. Symptomatically patient reports feeling better since Charles was placed. (3) Hypotension: Status: Acute Assessment and plan: BP was improved this morning but lower at most recent check of 77/60 L; patient continues to be asymptomatic His RBC improved from 2.67L to 2.78L and Hgb from 8.6L to 9.0L Additional labs were ordered by hospitalist team that reveal low iron at 24L, TIBC 164L Continue to have hospitalist consult for recommendations regarding hypotension and anemia Subjective Subjective Interval history since last seen: Mr. Rodriguez is a 70-year-old male postop day 3 status post bilateral TKAs. Overall he has been doing well with minimal pain following surgery. Patient has worked with physical therapy this morning which went well and was able to increase activity. Patient reports his abdomen feels improved following Charles catheter being placed. Patient denies any feelings of lightheadedness, chest pain or shortness of breath. Exam Narrative Exam Narrative: Sitting up in the bed. No acute distress. Alert and orient x 3. Bilateral knee examination: Mepilex dressings are in place -intact and dry except for 1 small area of dried blood noted along the proximal aspect of the left Mepilex. Bilateral lower extremity present. Mild effusions present. Patient is able to demonstrate short of full extension by 10 degrees. Passively can increase patient to be short of full extension by few degrees with mild discomfort. Sensation intact to light touch over the deep and superficial peroneal nerve. Resp Effort & Inspection: normal respiratory effort and able to speak in complete sentences Objective Last Vital Signs Temp 98.6 F 05/23/25 11:51 Pulse 95 H 05/23/25 11:51 Resp 17 05/23/25 11:51 BP 77/60 L 05/23/25 11:51 Pulse Ox 92 05/23/25 11:51 Laboratory Results - last 24 hr 05/22/25 05/23/25 08:51 06:30 WBC 10.41 RBC 2.78 L Hgb 9.0 L Hct 26.8 L MCV 96 H MCH 32.4 MCHC 33.6 RDW 13.5 Plt Count 146 MPV 10.2 Immature Gran % 0.0 Neutrophils % 85.0 Band Neutrophils % 1 Lymphocytes % 10.0 Monocytes % 4.0 Eosinophils % 0.0 Basophils % 0.0 Nucleated RBC % 0.0 Absolute Neutrophils 8.95 H Absolute Lymphocytes 1.04 L Absolute Monocytes 0.42 Absolute Eosinophils 0.00 Absolute Basophils 0.00 RBC Morphology Normal Sodium 143 Potassium 4.0 Chloride 106 Carbon Dioxide 32.4 H Anion Gap 4.6 BUN 40 H Creatinine 1.0 Est GFR (CKD-EPI 2020) 79.97 Glucose 109 H Calcium 8.2 L Iron 24 L TIBC 164 L Transferrin % Sat 15 L Total Bilirubin 0.9 AST 20 ALT 17 Alkaline Phosphatase 53 Total Protein 5.8 L Albumin 2.8 L Vitamin B12 281 Folate 4.8 L Crossmatch See Detail Time Spent with Patient Time Spent with Patient: <25 minutes Time was spent: preparing to see the patient(eg.review tests), obtaining and/or reviewing separately otained hiistory, referring, communicating with other health child care assistant, counseling the patient and care coordination
[2025-05-23 17:40] LABS: PSA, Screening 34.7 ng/mL (<=6.5)
[2025-05-23] MEDS: Gabapentin 300 MG CAP PO (19:44)
[2025-05-23] MEDS: Ferrous Sulfate 325 MG TAB PO (19:44)
[2025-05-23] MEDS: Tamsulosin 0.4 MG CAPCR PO (19:44)
[2025-05-24] VITALS (7 sets, daily range): BP systolic 95–130; BP diastolic 58–78; PULSE 62–89; RESP 17–20; TEMP 36.7–36.9; O2SAT 90–97
[2025-05-24 07:08] LABS: HCT 26.8 % (40.0-50.0); HGB 8.8 g/dL (13.5-17.5); MCH 32.1 pg (27.0-33.0); MCHC 32.8 % (32.0-36.0); MCV 98 fL (80-95); MPV 10.0 fL (8.0-11.0); Platelet Count 159 10^3/uL (130-400); RBC 2.74 10^6/uL (4.36-5.78); RDW 13.8 % (11.8-14.1); RDW-SD 48.6 fL; WBC 8.55 10^3/uL (4.4-10.8)
[2025-05-24 07:22] LABS: Anion Gap 4.2 mmol/L (3-11); BUN 31 mg/dL (7-18); CO2 32.8 mmol/L (21.0-32.0); Calcium 8.2 mg/dL (8.5-10.1); Chloride 107 mmol/L (98-107); Estimated GFR 90.74 (mL/min/1.73m2); Glucose 104 mg/dL (74-106); Potassium 4.0 mmol/L (3.5-5.1); Sodium 144 mmol/L (136-145)
--- NOTE | 2025-05-24 08:45 | PT.INTREAT ---
Date of service: 05/24/25 Time of Service: 07:55 PT Notes Visit Reasons: Bilateral knee DJD SUBJECTIVE: I will do whatever you tell me...I am very agreeable to any way you can help me. OBJECTIVE:? Dry cracking skin on anterior legs. Spoke with Dr. Shukla in room and agreeable to applying medline Zinc cream; requested he write an order for nursing to apply. Red pill found in bed upon exiting bed and given to JAQUELIN Marcial; believed to be iron. Vitals: at rest supine 98/49 with slight bed elevation 91/56 with HOB elevated manual cuff by RN 101/56 no symptoms with low BP Dr. Shukla confirmed the patient will be given a fluid bolus today to assist with his BP Treatment:Supine quad and glut sets, ankle pumps, heel slides, hip abd/add, SLR x 10 all AROM. reviewed importance of knee extension at rest. sit to stand mod assist x 1, successful after 3 attempts with cuing for momentum, leaning anteriorly, scooting forward on bed. sit to stand min/mod assist secondary to attempting to sit prior to reaching chair. able to scoot back in the chair with cuing only. Amb 34 feet with rolling walker with hip and knee flexion with decreased step length bilaterally. Cuing to work on knee extension while ambulating. expect calf weakness is contributing to flexion. Assessment: The patient is a 70 yo male presenting s/p elective B TKA under spinal anesthesia on 05/20/25. Still decreased mobility and will need to be independent with functional mobility prior to return home alone. Will benefit from short term rehab. Will need to continue to monitor BP and symptoms. Plan: Continue 1-2x/day per therapist schedule this weekend. Billing Charges: Treatment Units Time Duration Manual Therapy (88889) Hands-on techniques to modulate pain increase joint range of motion reduce or eliminate soft tissue swelling, inflammation, or restriction facilitate relaxation and improve contractile and non-contractile tissue extensibility Therapeutic Procedures (79704) Instruction in therapeutic exercises to develop strength and endurance, range of motion and flexibility. HEP instruction and review: Provided skilled instruction in proper exercise performance: Provided skilled manual cues to facilitate proper muscle recruitment and/or movement?pattern: 1 15 Neurological Re-Education (34594) to improve balance, coordination, kinesthetic and proprioceptive sensations. Ultrasound (02018) to promote healing Gait Training (42723) Therapeutic Activity (82002) instruction in dynamic activities with one on one patient contact by the provider to improve functional performance as follows: 2 34 Self Care Training (97055) Time Coded Treatment Minutes: 49 Total Treatment Time: 49
[2025-05-24] MEDS: Lactated Ringers 1,000 ML 1000 ML IV (09:16)
[2025-05-24] MEDS: Normal Saline Flush 10 ML SYR IVP ×2 (09:16→19:59)
[2025-05-24] MEDS: buPROPion-XL 150 MG TABCR PO (09:17)
[2025-05-24] MEDS: Acetaminophen 500 MG TAB 1000 MG PO ×3 (09:17→19:59)
[2025-05-24] MEDS: Docusate Sodium 100 MG CAP PO ×2 (09:17→19:59)
[2025-05-24] MEDS: Aspirin E.C. 81 MG TABEC PO ×2 (09:17→19:59)
[2025-05-24] MEDS: Escitalopram 20 MG TAB PO (09:18)
[2025-05-24] MEDS: Atorvastatin 20 MG TAB PO (09:18)
[2025-05-24] MEDS: Ferrous Sulfate 325 MG TAB PO ×2 (09:18→19:58)
[2025-05-24] MEDS: Pantoprazole 40 MG TABCR PO (09:18)
[2025-05-24] MEDS: Folic Acid 1 MG TAB PO (09:18)
[2025-05-24] MEDS: Celecoxib 200 MG CAP PO ×2 (09:18→19:59)
--- NOTE | 2025-05-24 10:26 | PGE_ITS ---
Date of Service Date of service: 05/24/25 Time of Service: 08:50 Assessment and Plan Assessment and plan (1) Bilateral primary osteoarthritis of knee: Status: Chronic Assessment and plan: Status post bilateral knee replacements. Overall doing well. His motion unfortunately been limited by some ongoing weakness which is a result of the severity of his arthritis and his deconditioned state. While initial thoughts where he would be able to return home home health services. Unfortunately, this is not going to be possible. He continues to require assistance with mobiliz ation and I think he be better served going to a rehabilitation center for period of time despite the support that he has at his home and home health services. He is in agreement this plan. Continue to mobilize with nursing and with physical therapy. Discharge planning with care management team. (2) Anemia: Status: Chronic Assessment and plan: Hemoglobin stable this morning at 8.8. His urine output is picked up. I do not think there is any indication for further transfusion at this point given his stable clinical exam and stable labs. (3) Hypotension: Status: Acute Assessment and plan: Continues to run slightly hypotensive, particular in the setting of chronic hypertension. However, asymptomatic. I have encouraged him to increase his oral intake. I will give him another bolus of fluid today to see if we can maintain his urine output and help improve his blood pressure. His BUN has come down from 41-30, sign of likely resolving dehydration. (4) Urinary retention: Status: Acute Assessment and plan: Continue Charles catheter today. Remove Charles catheter tomorrow morning at 6 AM for voiding trial. Subjective Subjective Interval history since last seen: Luciano reports be doing well. He was able to mobilize to physical therapy with more ease this morning although he still does not trust the legs completely. His urine output was adequate yesterday. His oral intakes been quite poor. He has remained relatively hypotensive but without symptoms. Medicine consultation is appreciated. He was shown to have significantly low iron level as well as folate levels. These are being replenished and I appreciate management from the medicine team. Labs remained stable. Exam Narrative Exam Narrative: Sitting up in the chair. No acute distress. Alert and orient x 3. Swelling about both legs although appropriate. Minimal ecchymosis. No defect palpable. He is able to straight leg raise both legs. He endorses ankle plantarflexion and dorsiflexion of both ankles with sensation intact to light touch over the superficial and deep peroneal nerve and tibial nerve. Objective Last Vital Signs Temp 36.8 C 05/24/25 08:04 Pulse 89 05/24/25 08:04 Resp 17 05/24/25 08:04 BP 102/58 L 05/24/25 08:04 Pulse Ox 93 05/24/25 08:04 Laboratory Results - last 24 hr 05/24/25 06:45 WBC 8.55 RBC 2.74 L Hgb 8.8 L Hct 26.8 L MCV 98 H MCH 32.1 MCHC 32.8 RDW 13.8 Plt Count 159 MPV 10.0 Sodium 144 Potassium 4.0 Chloride 107 Carbon Dioxide 32.8 H Anion Gap 4.2 BUN 31 H Creatinine 0.9 Est GFR (CKD-EPI 2020) 90.74 Glucose 104 Calcium 8.2 L Time Spent with Patient Time Spent with Patient: 25-34 minutes Time was spent: preparing to see the patient(eg.review tests), obtaining and/or reviewing separately otained hiistory, ordering medications,tests, procedures, referring, communicating with other health physician locums urgent care and counseling the patient
--- NOTE | 2025-05-24 13:39 | PGE_ITS ---
Date of Service Date of service: 05/24/25 Time of Service: 13:39 Assessment and Plan Assessment and plan (1) Anemia: Status: Chronic Assessment and plan: Patient has noted to have decrease in his hemoglobin over the last 48 hours. Patient did have some blood loss during his procedure and is getting transfusion. Classically an elevated BUN to creatinine equals dehydration versus GI bleed. Patient has no history of GI bleeds but has been taking NSAIDs. Will do a Hemoccult check x 3. Of note the patient also is not had colonoscopy. Agree with transfusion. He does have an elevated are least high normal MCV so we will check a B12 folate iron and TIBC. The patient's recent echocardiogram did show a fairly robust EF so giving some fluid would probably be okay. Will see how he responds to the transfusion of her cell. 05/23/25 stable and appropriate response to 1uprbc. HR remains appropriate with some mildly soft BP's. Pt doing well with PT. Could do some orthostatics if low hr remains concerning. Hemocculut pending (2) Hypertensive disorder: Status: Chronic Assessment and plan: Hold medications for now. (3) Hyperlipidemia: Status: Acute Assessment and plan: Continue with medical management (4) Hypotension: Status: Acute Assessment and plan: Monitor will check vitals after transfusion. (5) Macular degeneration: Status: Acute Assessment and plan: Patient is scheduled for surgery in the coming months (6) Urinary retention: Status: Acute Assessment and plan: Check a PSA and will add Flomax. 05/24/25 PSA significantly elevated on Mr Rodriguez (34.7). Highly recommend follow up with urology in the outpatient setting (7) Bilateral primary osteoarthritis of knee: Status: Chronic Assessment and plan: Defer to orthopedic team (8) Aortic stenosis, moderate: Assessment and plan: The patient does have at least mild to moderate aortic stenosis. He is currently asymptomatic. Defer further workup to the outpatient setting. Conclusion Mild concentric left ventricular hypertrophy. Ejection fraction is 60%. Wall motion is normal Normal right ventricular size and function Both atria are normal in size The aortic valve is calcified. There is mild to moderate aortic stenosis with a peak gradient of 41 and mean 24 mmHg. Calculated aortic valve area is 1.5 cm??. There is mild aortic regurgitation Mild mitral annular calcification Mildly to moderately dilated aortic root and ascending aorta Recommend yearly echo's but will defer to PCP/Gis Administrator (9) Elevated MCV: Status: Acute Assessment and plan: As above Pt does have low folate and this is being replaced dvtp per primary Subjective Subjective Interval history since last seen: Pt seen and examined in his room and is without complaint. Pt has been able to have BM's No significant complaint of pain Exam Narrative Exam Narrative: heent-ncat mmm eomi neck-no lad no jvd cv-3/6sem pulm-ctab no amu abd-protuberent knees-flexion bilat 60degrees bandaged c/d/i Objective Last Vital Signs Temp 36.9 C 05/24/25 11:45 Pulse 85 05/24/25 11:45 Resp 18 05/24/25 11:45 BP 95/63 L 05/24/25 11:45 Pulse Ox 94 05/24/25 11:45 Laboratory Results - last 24 hr 05/23/25 05/24/25 06:30 06:45 WBC 8.55 RBC 2.74 L Hgb 8.8 L Hct 26.8 L MCV 98 H MCH 32.1 MCHC 32.8 RDW 13.8 Plt Count 159 MPV 10.0 Sodium 144 Potassium 4.0 Chloride 107 Carbon Dioxide 32.8 H Anion Gap 4.2 BUN 31 H Creatinine 0.9 Est GFR (CKD-EPI 2020) 90.74 Glucose 104 Calcium 8.2 L PSA Screen 34.7 H Time Spent with Patient Time Spent with Patient: 25-34 minutes Time was spent: preparing to see the patient(eg.review tests), obtaining and/or reviewing separately otained hiistory, ordering medications,tests, procedures, referring, communicating with other health acute care nurse, indepentently interpreting results, counseling the patient and care coordination
[2025-05-24] MEDS: Gabapentin 300 MG CAP PO (19:58)
[2025-05-24] MEDS: Tamsulosin 0.4 MG CAPCR PO (19:58)
[2025-05-25] VITALS (8 sets, daily range): BP systolic 100–123; BP diastolic 62–91; PULSE 70–87; RESP 15–20; TEMP 36.4–37.5; O2SAT 94–98
[2025-05-25 07:12] LABS: Abs Immature Grans 0.14 10^3/uL (0.0-0.06); HCT 25.0 % (40.0-50.0); HGB 8.3 g/dL (13.5-17.5); Immature Grans % 1.8 %; MCH 32.8 pg (27.0-33.0); MCHC 33.2 % (32.0-36.0); MCV 99 fL (80-95); MPV 10.1 fL (8.0-11.0); Platelet Count 183 10^3/uL (130-400); RBC 2.53 10^6/uL (4.36-5.78); RDW 13.7 % (11.8-14.1); RDW-SD 49.5 fL; WBC 7.93 10^3/uL (4.4-10.8)
[2025-05-25 07:34] LABS: ALT 26 U/L (16-63); AST 27 U/L (15-37); Albumin 2.3 g/dL (3.4-5.0); Alkaline Phosphatase 57 U/L (46-116); Anion Gap 4.6 mmol/L (3-11); BUN 25 mg/dL (7-18); Bilirubin, Total 0.9 mg/dL (0.2-1.0); CO2 32.4 mmol/L (21.0-32.0); Calcium 8.3 mg/dL (8.5-10.1); Chloride 106 mmol/L (98-107); Estimated GFR 97.90 (mL/min/1.73m2); Glucose 97 mg/dL (74-106); Potassium 4.1 mmol/L (3.5-5.1); Sodium 143 mmol/L (136-145); Total Protein 5.5 g/dL (6.4-8.2)
[2025-05-25] MEDS: Docusate Sodium 100 MG CAP PO (08:10)
[2025-05-25] MEDS: Atorvastatin 20 MG TAB PO (08:10)
[2025-05-25] MEDS: Folic Acid 1 MG TAB PO (08:11)
[2025-05-25] MEDS: Ferrous Sulfate 325 MG TAB PO ×2 (08:11→20:04)
[2025-05-25] MEDS: Pantoprazole 40 MG TABCR PO (08:11)
[2025-05-25] MEDS: Normal Saline Flush 10 ML SYR IVP ×2 (08:11→20:05)
[2025-05-25] MEDS: Aspirin E.C. 81 MG TABEC PO ×2 (08:11→20:03)
[2025-05-25] MEDS: Celecoxib 200 MG CAP PO ×2 (08:11→20:03)
[2025-05-25] MEDS: buPROPion-XL 150 MG TABCR PO (08:11)
[2025-05-25] MEDS: Escitalopram 20 MG TAB PO (08:11)
--- NOTE | 2025-05-25 08:43 | PTTR_ITS ---
Date of service: 05/25/25 Time of Service: 07:25 PT Notes Visit Reasons: Bilateral knee DJD SUBJECTIVE: Pleased with his progress yesterday and today. OBJECTIVE:? Dry cracking skin on anterior legs. applied medline Zinc cream; Vitals: by mak 7:09 123/62 HR 75, O2 98% Dr. Shukla confirmed the patient will be given a fluid bolus today to assist with his BP Treatment:Supine quad and glut sets, ankle pumps, heel slides, hip abd/add, SLR x 10 all AROM. reviewed importance of knee extension at rest. sit to stand min/mod assist x 1, after 3 attempts with cuing for momentum, leaning anteriorly, scooting forward on bed. sit to stand CGA assist able to scoot back in the chair with cuing only. sit to/from stand from recliner with CGA only Amb 55 feet with rolling walker with hip and knee flexion with decreased step length bilaterally. Cuing to work on knee extension while ambulating. Standing heel raises at walker x 10 Assessment: The patient is a 70 yo male presenting s/p elective B TKA under spinal anesthesia on 05/20/25. Still decreased mobility and will need to be in dependent with functional mobility prior to return home alone. Will benefit from short term rehab. Improved BP. Able to perform sit to stand from an elevated surface without assist. Plan: Continue 1-2x/day per therapist schedule this . Billing Charges: Treatment Units Time Duration Manual Therapy (10327) Hands-on techniques to modulate pain increase joint range of motion reduce or eliminate soft tissue swelling, inflammation, or restriction facilitate relaxation and improve contractile and non-contractile tissue extensibility Therapeutic Procedures (32230) Instruction in therapeutic exercises to develop strength and endurance, range of motion and flexibility. HEP instruction and review: Provided skilled instruction in proper exercise performance: Provided skilled manual cues to facilitate proper muscle recruitment and/or movement?pattern: 1 16 Neurological Re-Education (96024) to improve balance, coordination, kinesthetic and proprioceptive sensations. Ultrasound (78968) to promote healing Gait Training (11593) Therapeutic Activity (18740) instruction in dynamic activitie s with one on one patient contact by the provider to improve functional performance as follows: 1 14 Self Care Training (45323) Time Coded Treatment Minutes: 30 Total Treatment Time: 30
--- NOTE | 2025-05-25 09:23 | PGE_ITS ---
Date of Service Date of service: 05/25/25 Time of Service: 09:23 Assessment and Plan Assessment and plan (1) PSA elevation: Status: Acute Assessment and plan: Did discuss this with the pt. Strong recommendation to follow up with Urology MARLENE. Pt only endorses mild to moderate symptoms of LUTS (2) Macular degeneration: Status: Acute Assessment and plan: outpatient regimen (3) Urinary retention: Status: Acute Assessment and plan: pt has been initiated on flomax 0.4mg qhs, titrate to effectiveness (4) Aortic stenosis, moderate: Assessment and plan: outpatient follow up (5) Hx of knee surgery: Assessment and plan: per luanne (6) Hypotension: Status: Acute Assessment and plan: vss Subjective Subjective Interval history since last seen: Pt seen and examined in his room this am. No new complaints. Pt states that he does have some nocturia and at times the sensation of not being able to empty his bladder. Pt has not seen a urologist in the past Exam Narrative Exam Narrative: heent-ncat mmm eomi perrla neck-no lad no jvd cv-rrr no mrg lungs ctab no amu abd-sntndbsa sitting in bed. b knees bandaged c/d/i Objective Last Vital Signs Temp 36.8 C 05/25/25 07:09 Pulse 75 05/25/25 07:09 Resp 18 05/25/25 07:09 BP 123/62 05/25/25 07:09 Pulse Ox 98 05/25/25 07:09 Laboratory Results - last 24 hr 05/23/25 05/25/25 06:30 06:38 WBC 7.93 RBC 2.53 L Hgb 8.3 L Hct 25.0 L MCV 99 H MCH 32.8 MCHC 33.2 RDW 13.7 Plt Count 183 MPV 10.1 Immature Gran % 1.8 Neutrophils % 69.4 Lymphocytes % 13.5 Monocytes % 12.0 Eosinophils % 2.9 Basophils % 0.4 Nucleated RBC % 0.0 Absolute Neutrophils 5.51 Absolute Lymphocytes 1.07 L Absolute Monocytes 0.95 H Absolute Eosinophils 0.23 Absolute Basophils 0.03 Sodium 143 Potassium 4.1 Chloride 106 Carbon Dioxide 32.4 H Anion Gap 4.6 BUN 25 H Creatinine 0.7 Est GFR (CKD-EPI 2020) 97.90 Glucose 97 Calcium 8.3 L Total Bilirubin 0.9 AST 27 ALT 26 Alkaline Phosphatase 57 Total Protein 5.5 L Albumin 2.3 L PSA Screen 34.7 H Time Spent with Patient Time Spent with Patient: 35-49 minutes Time was spent: preparing to see the patient(eg.review tests), obtaining and/or reviewing separately otained hiistory, ordering medications,tests, procedures, referring, communicating with other health rehab care assistant, indepentently interpreting results, counseling the patient and care coordination
--- NOTE | 2025-05-25 10:05 | PGE_ITS ---
Date of Service Date of service: 05/25/25 Time of Service: 10:20 Assessment and Plan Assessment and plan (1) Bilateral primary osteoarthritis of knee: Status: Chronic Assessment and plan: Status post bilateral knee replacements. Overall doing well. He continues to require assistance with mobilization and I think he be better served going to a rehabilitation center for period of time despite the support that he has at his home and home health services. He is in agreement this plan. Continue to mobilize with nursing and with physical therapy. Discharge planning with care management team. I reminded him about working on terminal knee extension as much as possible by getting the knee passively straight and sheba his quad to further extend them. (2) Anemia: Status: Chronic Assessment and plan: Hemoglobin stable this morning at 8.3. His urine output is picked up. No need for further transfusion. Continue with iron and folate supplementation. (3) Hypotension: Status: Acute Assessment and plan: Trending up and asymptomatic. I have encouraged him to increase his oral intake. (4) Urinary retention: Status: Acute Assessment and plan: Follow today for voiding and scan for PVR and if no void > 4 hours. Elevated PSA will require Urology consultation. Subjective Subjective Interval history since last seen: Ed had a good night. He felt he has made some progress with PT. Charles catheter was removed this morning. Blood pressure was more stable throughout the day yesterday. PSA did come back elevated and additional labs have been ordered by the Medicine team. Exam Narrative Exam Narrative: Sitting up in the chair. AAOx3. NAD. Bilateral knee dressings c/d/i. Right knee has significant superficial fluid but no detectable quadriceps or extensor mechanism rupture. Able to SLR both knee but with lag, 20 degrees on the right and 10 degrees on the left. Objective Laboratory Results - last 24 hr 05/25/25 06:38 WBC 7.93 RBC 2.53 L Hgb 8.3 L Hct 25.0 L MCV 99 H MCH 32.8 MCHC 33.2 RDW 13.7 Plt Count 183 MPV 10.1 Immature Gran % 1.8 Neutrophils % 69.4 Lymphocytes % 13.5 Monocytes % 12.0 Eosinophils % 2.9 Basophils % 0.4 Nucleated RBC % 0.0 Absolute Neutrophils 5.51 Absolute Lymphocytes 1.07 L Absolute Monocytes 0.95 H Absolute Eosinophils 0.23 Absolute Basophils 0.03 Sodium 143 Potassium 4.1 Chloride 106 Carbon Dioxide 32.4 H Anion Gap 4.6 BUN 25 H Creatinine 0.7 Est GFR (CKD-EPI 2020) 97.90 Glucose 97 Calcium 8.3 L Total Bilirubin 0.9 AST 27 ALT 26 Alkaline Phosphatase 57 Total Protein 5.5 L Albumin 2.3 L Prostate Specific Ag Cancelled PSA Ultra-Sensitive Cancelled Time Spent with Patient Time Spent with Patient: <25 minutes Time was spent: preparing to see the patient(eg.review tests), obtaining and/or reviewing separately otained hiistory, referring, communicating with other health date night caregiver and counseling the patient
[2025-05-25] MEDS: Protein Nutritional Supplement 16 GM 1 OUNCE PACKET PO ×2 (14:37→20:05)
[2025-05-25] MEDS: Gabapentin 300 MG CAP PO (20:03)
[2025-05-25] MEDS: Tamsulosin 0.4 MG CAPCR PO (20:03)
[2025-05-26] VITALS (7 sets, daily range): BP systolic 98–127; BP diastolic 67–103; PULSE 66–97; RESP 16–18; TEMP 36.5–37.1; O2SAT 91–98
[2025-05-26 06:42] LABS: Abs Immature Grans 0.18 10^3/uL (0.0-0.06); HCT 26.5 % (40.0-50.0); HGB 8.6 g/dL (13.5-17.5); Immature Grans % 2.3 %; MCH 31.3 pg (27.0-33.0); MCHC 32.5 % (32.0-36.0); MCV 96 fL (80-95); MPV 9.7 fL (8.0-11.0); Platelet Count 208 10^3/uL (130-400); RBC 2.75 10^6/uL (4.36-5.78); RDW 13.4 % (11.8-14.1); RDW-SD 47.1 fL; WBC 7.81 10^3/uL (4.4-10.8)
[2025-05-26 07:10] LABS: ALT 29 U/L (16-63); AST 29 U/L (15-37); Albumin 2.6 g/dL (3.4-5.0); Alkaline Phosphatase 61 U/L (46-116); Anion Gap 5.3 mmol/L (3-11); BUN 20 mg/dL (7-18); Bilirubin, Total 1.2 mg/dL (0.2-1.0); CO2 31.7 mmol/L (21.0-32.0); Calcium 9.1 mg/dL (8.5-10.1); Chloride 103 mmol/L (98-107); Estimated GFR 97.90 (mL/min/1.73m2); Glucose 103 mg/dL (74-106); Potassium 3.9 mmol/L (3.5-5.1); Sodium 140 mmol/L (136-145); Total Protein 6.0 g/dL (6.4-8.2)
[2025-05-26] MEDS: Acetaminophen 500 MG TAB 1000 MG PO ×3 (08:31→21:26)
[2025-05-26] MEDS: Normal Saline Flush 10 ML SYR IVP (08:31)
[2025-05-26] MEDS: Protein Nutritional Supplement 16 GM 1 OUNCE PACKET PO ×3 (08:31→21:25)
[2025-05-26] MEDS: Atorvastatin 20 MG TAB PO (08:32)
[2025-05-26] MEDS: Folic Acid 1 MG TAB PO (08:32)
[2025-05-26] MEDS: Escitalopram 20 MG TAB PO (08:32)
[2025-05-26] MEDS: Docusate Sodium 100 MG CAP PO ×2 (08:32→21:26)
[2025-05-26] MEDS: Aspirin E.C. 81 MG TABEC PO ×2 (08:32→21:26)
[2025-05-26] MEDS: buPROPion-XL 150 MG TABCR PO (08:32)
[2025-05-26] MEDS: Pantoprazole 40 MG TABCR PO (08:32)
[2025-05-26] MEDS: Ferrous Sulfate 325 MG TAB PO ×2 (08:32→21:27)
[2025-05-26] MEDS: Celecoxib 200 MG CAP PO ×2 (08:32→21:26)
--- NOTE | 2025-05-26 12:32 | PT.INTREAT ---
PT Notes Visit Reasons: Bilateral knee DJD Date: 05/26/2025 PRECAUTIONS: Fall, standard, Activity as tolerated. SUBJECTIVE: pt in bed when approached for therapy this morning, patient reports he has been doing his exercises in bed this morning. PAIN: none at rest, 1-2/10 with activity ? VITALS: monitored by nursing Therapeutic Activities 96226: Direct one-on-one instruction in dynamic activities to improve functional performance. ?? BED MOBILITY/TRANSFERS? Rolling L/R: supervision Supine-sit: Independent? Sit-supine: ? SBA? Sit-stand: ?CGA with cues to use rocking motion and count of 3 from a 20 inch height; SBA from elevated seat of recliner x 5 repetitions ? Stand-sit: ?CGA from FWW to all seat heights ? Provided skilled cues and instruction on performance and technique throughout. Gait Training 59675: Direct one-on-one instruction and skilled instruction in: Employing an assistive device Modified weight-bearing status Movement sequencing Turning and movement with proper form Provided verbal cues for equipment management and technique Provided instruction in gait pattern Patient education regarding pacing and breathing techniques to maximize activity tolerance? GAIT? Assistive Device: ??FWW? Weight bearing: WBAT Assist: CGA ? Distance:?? 50 feet x 1 including turns and obstacle management ? Deviation: Wide base of support reduced step length bilaterally impaired knee extension right Mid stance, increased weightbearing through bilateral upper extremities? ? ? Therapeutic exercise, 06070 Supine quad and glut sets, ankle pumps, heel slides, hip abd/add, SLR x 10 all AROM BLE Seated LAQ, marching x 10 reps BLE AROM; seated knee extension x 3 minutes BLE to increase hamstring length ? ASSESSMENT: Patient progressing with functional tasks. Needs encouragement to perform without assistance sit to stand from lower heights. Patient responded well to cue of rocking forward and counting to 3 prior to standing. Patient limited by significant hamstring tightness right greater than left. Patient's progress has been slower than anticipated due to significance of hamstring involvement limiting his stability in standing position. Patient would benefit from short-term SNF prior to discharge to home PLAN: Continue with balance training, global strengthening and general conditioning for improved safety, mobility and activity tolerance until pt is ready for DC. Recommendation: Short-term SNF TREATMENT CODE/TIME: 82177e0, 84229/1100?[id number]
--- NOTE | 2025-05-26 13:22 | CMPROGNOTE_ITS ---
Date of service: 05/26/25 Time of Service: 13:22 Care Management Progress Note Progress Note Text Progress Note Text: Ed was sitting in the chair and working with PT when CM met with him. He has been accepted to [facility] with a bed offer for tomorrow morning, which he has happily accepted. Per PT, it is recommended he will transport via [facility] at discharge. It is recommended he have HH services following his STR stay. CM will continue to follow. Discharge Potential Discharge Needs: PCP F/U Appt and Surgical F/U Appt Anticipated Barriers to Discharge: None Identified Patient/Family Education Needs: Review discharge instructions, discuss Ask Me Three Plan: Anticipate Luciano will be discharged to [facility] for STR prior to discharging home, tomorrow; Discussed with DON at [facility] and Dr. Shukla, morning discharge is requested. It is recommended that he follow up with his community providers, surgical team, and continue per his discharged plan of care. He will transport via [facility] as recommended by PT. CM will continue to follow. Social Determinants of Health Screening Will the Patient Participate in the Screening?: Unable to obtain Do you worry about having a steady place to live?: no In the past 12 months, have you had to go without electric, gas, oil or water in your home?: no Has lack of transportation kept you from medical appointments or from doing things needed for daily living?: no Has anyone in your life made you feel unsafe or unsupported?: no How hard is it for you to pay for the very basics like food, housing, medical care, and heating? Would you say it is:: Not hard at all Do you want help finding or keeping work or a job?: I do not need or want help If for any reason you need help with day-to-day activities such as bathing, preparing meals, shopping, managing finances, etc., do you get the help you need?: I don?t need any help How often do you feel lonely or isolated from those around you?: Rarely Do you speak a language other than Hebrew at home?: No Does the patient want assistance with any of the above?: No Health Related Social Needs Health related social needs: feeling lonely/isolated (Z60.8) Health related social needs details: Patient lost over two years ago, patient stated it is very hard to get over, but he is trying to move on.
--- NOTE | 2025-05-26 13:52 | PT.INTREAT ---
PT Notes Visit Reasons: Bilateral knee DJD Date: 05/26/2025 PRECAUTIONS: Fall, standard, Activity as tolerated. SUBJECTIVE: pt in bed when approached for therapy this afternoon, pt agrees to participating with therapy intervention. PAIN: did not offer complaint ? VITALS: monitored by nursing Therapeutic Activities 24183: Direct one-on-one instruction in dynamic activities to improve functional performance. ?? BED MOBILITY/TRANSFERS? Rolling L/R: supervision Supine-sit: ?SBA ? Sit-supine: ? SBA? Sit-stand: ?SBA ? Stand-sit: ?SBA? Provided skilled cues and instruction on performance and technique throughout. Gait Training 74747: Direct one-on-one instruction and skilled instruction in: Employing an assistive device Modified weight-bearing status Movement sequencing Turning and movement with proper form Provided verbal cues for equipment management and technique Provided instruction in gait pattern Patient education regarding pacing and breathing techniques to maximize activity tolerance? GAIT? Assistive Device: ??FWW? Weight bearing: WBAT Assist: SBA? Distance:?? 40' x1, 60'x1? Deviation: ?Slow rosa speed, low step height, short step length. ? ? ? Neuro Re-education 94241 mins: to improve balance, coordination, kinesthetic and proprioceptive sensations. ? Treatment: ? ? ? Sit to stand from recliner [id number] with cue for quad set and glute set Static standing balance activity with pt emphasis on terminal knee extension Standing balance activity doing multidirectional lean transfer going in and out of recliner with cue for safety by being close enough to edge of chair before sitting and reaching behind for controlled descent. ? ASSESSMENT:?pt able to complete session without pain aggravation, pt showing good effort to keep knees extended during ambulation, pt showing good carry over with quad sets and HEP while in recliner. PLAN: Continue with balance training, global strengthening and general conditioning for improved safety, mobility and activity tolerance until pt is ready for DC. TREATMENT CODE/TIME: [id number], [id number] 30mins (1:25-1:55pm)
--- NOTE | 2025-05-26 16:13 | W.PM.PROGNOT ---
Date of Service Date of service: 05/26/25 Time of Service: 12:05 Assessment and Plan Assessment and plan (1) Bilateral primary osteoarthritis of knee: Status: Chronic Assessment and plan: Status post bilateral knee replacements. Overall doing well. Discharge planning with care management team. Ready for d/c to SNF. I reminded him about working on terminal knee extension as much as possible by getting the knee passively straight and sheba his quad to further extend them. (2) Anemia: Status: Chronic Assessment and plan: Hemoglobin stable at 8.6. His urine output is picked up. No need for further transfusion. Continue with iron and folate supplementation. (3) Hypotension: Status: Acute Assessment and plan: Trending up and asymptomatic. I have encouraged him to increase his oral intake. (4) Urinary retention: Status: Acute Assessment and plan: Resolved - voiding spontaneously. Elevated PSA will require Urology consultation. Subjective Subjective Interval history since last seen: Ed is doing well. No acute concerns. Voiding spontaneously. Exam Narrative Exam Narrative: Sitting up in the chair. AAOx3. NAD. Bilateral knee dressings c/d/i. Right knee has significant superficial fluid but no detectable quadriceps or extensor mechanism rupture. Able to SLR both knee but with lag, 20 degrees on the right and 10 degrees on the left. Objective Last Vital Signs Temp 37.1 C 05/26/25 15:15 Pulse 96 H 05/26/25 15:15 Resp 17 05/26/25 15:15 BP 98/78 L 05/26/25 15:15 Pulse Ox 96 05/26/25 15:15 Laboratory Results - last 24 hr 05/26/25 06:22 WBC 7.81 RBC 2.75 L Hgb 8.6 L Hct 26.5 L MCV 96 H MCH 31.3 MCHC 32.5 RDW 13.4 Plt Count 208 MPV 9.7 Immature Gran % 2.3 Neutrophils % 66.9 Lymphocytes % 13.6 Monocytes % 12.4 Eosinophils % 4.2 Basophils % 0.6 Nucleated RBC % 0.0 Absolute Neutrophils 5.22 Absolute Lymphocytes 1.06 L Absolute Monocytes 0.97 H Absolute Eosinophils 0.33 Absolute Basophils 0.05 Sodium 140 Potassium 3.9 Chloride 103 Carbon Dioxide 31.7 Anion Gap 5.3 BUN 20 H Creatinine 0.7 Est GFR (CKD-EPI 2020) 97.90 Glucose 103 Calcium 9.1 Total Bilirubin 1.2 H AST 29 ALT 29 Alkaline Phosphatase 61 Total Protein 6.0 L Albumin 2.6 L Time Spent with Patient Time Spent with Patient: <25 minutes Time was spent: preparing to see the patient(eg.review tests), obtaining and/or reviewing separately otained hiistory and counseling the patient
[2025-05-26] MEDS: Tamsulosin 0.4 MG CAPCR PO (21:26)
[2025-05-26] MEDS: Gabapentin 300 MG CAP PO (21:26)
[2025-05-27 03:35] VITALS: BP 131/90; PULSE 75; RESP 20; TEMP 37.2; O2SAT 90
[2025-05-27 07:09] VITALS: BP 109/73; PULSE 78; RESP 18; TEMP 36.6; O2SAT 94
--- NOTE | 2025-05-27 07:32 | W.PM.DS.N ---
Date of service: 05/27/25 Time of Service: 07:32 DS: Diagnosis Discharge Diagnosis (1) Bilateral primary osteoarthritis of knee: Status: Chronic (2) PSA elevation: Status: Acute (3) Urinary retention: Status: Acute (4) Iron deficiency anemia: Status: Acute Discharge Plan Disposition [facility] Dis[facility] Condition: Good Discharge Details Reason For Visit: Bilateral knee DJD Admit Date/Time: 05/20/25 13:12 Admit Provider: Miguelangel Shukla Attending Provider: Miguelangel Shukla Primary Care Provider: Vicki Gill Hospital Course Hospital Course: Luciano was admitted to the medical/surgical floor following the procedure. The surgery was tolerated well without any notable medical, surgical, or anesthetic complications. Mobilization began postoperatively. He had very minimal spontaneous voiding initially with high bladder scan volumes and therefore Charles catheter was placed. This stayed in place for a little over 2 days and was discontinued where he was able to void spontaneously on his own. His blood pressure remained quite soft initially for the first 2 days. His blood counts did drop down to 8.8 and therefore he was transfused 1 unit. He was also responsive to fluids although relatively asymptomatic throughout all of this. Medicine consultation was requested during his stay was also identified to have hypoalbuminemia, elevated PSA, and iron deficiency anemia. At the time of discharge, vitals were stable. Pain was well-controlled. He was voiding on his own. Physical therapy worked with the patient and was cleared for discharge to [facility] facility. He was making excellent gains with physical therapy and is motivated to return home soon. No acute medical issues. Home Meds and New Rx's Prescriptions: New celecoxib 200 mg Capsule 200 mg PO BID Qty: 0 0RF aspirin 81 mg Tablet,Delayed Release (Dr/Ec) 81 mg PO BID Qty: 0 0RF zinc oxide 20 % Ointment 1 applic topical BID PRN PRNQty: 0 0RF acetaminophen 500 mg Tablet 1,000 mg PO TID Qty: 0 0RF tamsulosin 0.4 mg Capsule 0.4 mg PO HS Qty: 0 0RF ferrous sulfate 325 mg (65 mg iron) Tablet 325 mg PO BID Qty: 0 0RF docusate sodium [Colace] 100 mg Capsule 100 mg PO BID PRN (Reason: Constipation) Qty: 0 0RF folic acid 1 mg Tablet 1 mg PO DAILY Qty: 0 0RF Phlexy-Vits 15 mg- 700 mcg Powder In Packet 1 packet PO TID Qty: 0 0RF Continued bupropion HCl 150 mg tablet extended release 24 hr 150 mg PO QAM gabapentin 300 mg capsule 300 mg PO QHS escitalopram oxalate 20 mg tablet 20 mg PO DAILY cholecalciferol (vitamin D3) 50 mcg (2,000 unit) capsule 50 mcg PO DAILY fluticasone furoate-vilanterol [Breo Ellipta] 200-25 mcg/dose blister with device 1 inh inhalation DAILY lisinopril 20 mg tablet 20 mg PO DAILY timolol maleate 0.5 % drops 1 drp ophthalmic (eye) BID Patient Comments: INSTILL 1 DROP IN BOTH EYES TWICE DAILY atorvastatin 40 mg tablet 40 mg PO HS Patient Comments: Take 1 tablet by mouth every night at bedtime Changed cyclobenzaprine 10 mg tablet 10 mg PO BID Qty: 0 0RF Patient Comments: Pt reports taking BID Discontinued ibuprofen 800 mg tablet 800 mg PO TID Discharge Instructions Additional Instructions: Total Knee Discharge Instructions Activity: The most important activity is to walk and to work on gentle motion (both flexion and extension). You should try to take short walks a few times a day. It is important that when resting you work on keeping the knee straight. Avoid putting a pillow behind the knee as this will encourage flexion. Work on range of motion exercises as provided by Physical Therapy. - Continue to work on fully extending the knee but propping up the heel and sheba your thigh muscles (quadriceps) to get full extension. Dressing: Remove the Mepilex dressings at 2 weeks post-op, approximately 06/02/25. After this they do not need to be covered. Zinc oxide is been applied to your lower legs 1-2 times daily. You may shower but avoid soaking the dressings. Medications: - You should take Tylenol and anti-inflammatory Celebrex as your primary pain control medications. - You take Gabapentin at baseline - continue to take at night for restlessness and nerve pain. - You will be taking Aspirin 81mg twice a day for DVT prevention unless instructed otherwise. - If you have constipation you should take Colace - You have also been started on iron tablets as well as folic acid to help out with your anemia. - You have also been started on tamsulosin for urinary retention. Follow-up: 3-4 weeks postop If you have any acute concerns or questions, please do not hesitate to contact the office at [phone]. You may contact Dr. Shukla with any questions after hours through the hospital at [phone] or on his cell phone at [phone]. Referrals: Miguelangel Shukla MD [ [facility] STAFF PHYSICIAN, Orthopaedic Surgical] Activity:: Activity as Tolerated Equipment/Supplies:: Walker Diet:: As Tolerated Discharge Orders Discharge Orders: Discharge Order (Routine); Ordered 05/27/25 Ordered By: Miguelangel Shukla DS: Summary Time Spent with Patient providing and/or coordinating discharge services: Less than 30 minutes Status at Discharge Functional status at discharge: uses cane/walker Overall status at discharge: patient is progressing back to baseline Mental Status: mental status grossly normal Speech and Movement: speech and movement normal Mood: congruent mood Affect: normal affect Quality:SDOH Health Related Social Needs: Health related social needs lonely/isolated Health related social needs details Patient lost over two years ago, patient stated it is very hard to get over, but he is trying to move on. Exam Narrative Exam Narrative: Laying supine in the bed. NAD. AAOx3. BLE dressings c/d/i except for very small blood discharge on left knee dressing. Knees stable to varus/valgus stress Fluid around the right knee more than left. Able to SLR with much less lag, less than 10 degrees on both knees. No palpable retinacular defect. Resolving ecchymosis. +ADF/APF/EHL/FHL SILT DP/SP/Tib. Psych Mental Status: mental status grossly normal Speech and Movement: speech and movement normal Mood: congruent mood Affect: normal affect DS: Data Vitals/I&O Vitals and I&O: Vital Signs Temperature 98.8 F 05/20/25 10:10 Pulse 90 05/20/25 10:10 Pulse Rhythm Regular 05/20/25 10:10 Respiratory Depth Normal 05/20/25 10:10 Blood Pressure 170/94 H 05/20/25 10:45 Blood Pressure Mean 119 05/20/25 10:45 Blood Pressure Position Supine 05/20/25 10:45 Pulse Oximetry 97 05/20/25 10:10 Oxygen Delivery Method Room Air 05/20/25 10:10 Oxygen Flow Rate 0 05/20/25 10:10 Pain Level 0 05/20/25 10:10 Intake & Output 05/19/25 05/20/25 05/20/25 23:59 11:59 23:59 Weight 280 lb Other: Comment pt ambulated to BR to void and returned to sit in wheelchair. PFSH All Active Problems Iron deficiency anemia (Acute) PSA elevation (Acute) Elevated MCV (Acute) Anemia (Chronic) Hypotension (Acute) Urinary retention (Acute) Blindness and low vision (Acute) Macular degeneration (Acute) Asthma (Chronic) Hyperlipidemia (Acute) Hypertensive disorder (Chronic) Onychomycosis (Acute) Depression (Chronic) Bilateral primary osteoarthritis of knee (Chronic) s/p Bilateral TKA (05/20/25) depo medrol 06/17/24 Medical History Aortic stenosis, moderate New on echo 05/20/25. Mild to Moderate Surgical History Hx of knee surgery 1974, R Social History Smoking/Tobacco Use Status: Former Tobacco Use Quit Date: 08/28/89 Smoking risk assessment performed?: Yes Alcohol Intake: former Drug use: Never Substance use type: does not use Housing: apartment Do you feel safe at home: Yes Additional Social history: Live alone Time Spent with Patient Time Spent with Patient: <45 minutes Time was spent: preparing to see the patient(eg.review tests), obtaining and/or reviewing separately otained hiistory, indepentently interpreting results and counseling the patient
[2025-05-27] MEDS: Protein Nutritional Supplement 16 GM 1 OUNCE PACKET PO (08:11)
[2025-05-27] MEDS: Folic Acid 1 MG TAB PO (08:11)
[2025-05-27] MEDS: Celecoxib 200 MG CAP PO (08:11)
[2025-05-27] MEDS: Ferrous Sulfate 325 MG TAB PO (08:11)
[2025-05-27] MEDS: Pantoprazole 40 MG TABCR PO (08:11)
[2025-05-27] MEDS: Escitalopram 20 MG TAB PO (08:11)
[2025-05-27] MEDS: buPROPion-XL 150 MG TABCR PO (08:11)
[2025-05-27] MEDS: Atorvastatin 20 MG TAB PO (08:11)
[2025-05-27] MEDS: Aspirin E.C. 81 MG TABEC PO (08:11)
[2025-05-27] MEDS: Docusate Sodium 100 MG CAP PO (08:11)
[2025-05-27] MEDS: Normal Saline Flush 10 ML SYR IVP (08:13)
--- NOTE | 2025-05-27 08:17 | PDOC.CMDIS ---
Date of service: 05/27/25 Time of Service: 08:17 LACE Index Scoring Tool Questions: Length of Stay (in days): 7 - 13 Was the patient admitted via the E.D.?: Yes E.D. Visits: 7 Answers: Total Score: 12 Risk of Readmission: High Risk Care Management Discharge Plan Reason for Hospitalization: Bilateral Knee DJD Discharge Plan: Luciano is discharged to [facility] for STR. He will be transported via [facility] w/c van coordinated by [facility]. Luciano will follow up with community providers and continue per his discharge plan of care. Patient/Family Education Needs: Review discharge instructions and plan to follow up after discharge. Discuss ask me three. Services Needed at Discharge: [facility] Facility ([facility], coordinated by [facility]) and Transportation ([facility] W[facility] van) SDOH Health Related Social Needs: Health related social needs lonely/isolated Health related social needs details Patient lost over two years ago, patient stated it is very hard to get over, but he is trying to move on. Health related social needs details: Patient lost over two years ago, patient stated it is very hard to get over, but he is trying to move on.
== END 2025-05-27 09:58 | disposition skilled nursing facility (03) | DRG 462 ==
LOC: MS 19:16
PROVIDERS: Hospitalist; Admitting Provider Student in an Organized Health Care Education/Training Program; PCP Physician Assistant Medical; Responsible Provider Student in an Organized Health Care Education/Training Program; Visit Provider Student in an Organized Health Care Education/Training Program
PROC: 0SRC0JZ Replacement of Right Knee Joint with Synthetic Substitute, Open Approach (ICD-10-PCS; CPT 27447; principal; 2025-05-20 13:30)
DX: M17.0 Bilateral primary osteoarthritis of knee (principal); J45.909 Unspecified asthma, uncomplicated; E78.5 Hyperlipidemia, unspecified; I10 Essential (primary) hypertension; B35.1 Tinea unguium; F32.A Depression, unspecified; Z79.899 Other long term (current) drug therapy; H35.30 Unspecified macular degeneration; I97.191 Other postprocedural cardiac functional disturbances following other surgery; I95.81 Postprocedural hypotension; R33.8 Other retention of urine; G89.18 Other acute postprocedural pain; M25.561 Pain in right knee; M25.562 Pain in left knee; I35.0 Nonrheumatic aortic (valve) stenosis; R79.89 Other specified abnormal findings of blood chemistry; Z79.1 Long term (current) use of non-steroidal anti-inflammatories (NSAID); I45.10 Unspecified right bundle-branch block; R00.0 Tachycardia, unspecified; M24.562 Contracture, left knee; M24.561 Contracture, right knee; D50.9 Iron deficiency anemia, unspecified; E88.09 Other disorders of plasma-protein metabolism, not elsewhere classified; R97.20 Elevated prostate specific antigen [PSA]; R45.89 Other symptoms and signs involving emotional state
CPT/HCPCS: 27447; 20985; 00123; 36415; 64447; 80048; 80053; 84153; 85027; 86850; 86900; 86901; 86920; 93306; 94640; 97110; 97112; 97161; 97530; 82270; 82607; 82746; 83540; 83550; 84154; 85025; 93005; 93010; 94664; 94760; 99222; 99231; 99232; C1776; J0166; J0665; J0666; J0690; J1100; J2003; J2250; J2371; J2405; J2704; J8540; P9016

== ENCOUNTER 2025-06-18 12:06 | Inpatient (IN) | payer MEDICARE, MEDICAID, SELFPAY ==
[2025-06-18] VITALS (14 sets, daily range): BP systolic 100–134; BP diastolic 61–83; PULSE 84–101; RESP 15–24; TEMP 36.4–36.7; O2SAT 93–100; BMI 40.1
--- NOTE | 2025-06-18 12:17 | W.ANESPRE ---
General Info Date of Service Date Performed: 06/18/25 Height: 5 ft 10 in Weight: 127.006 kg Body Mass Index (BMI): 40.1 Surgical Procedure: Operation Date: 06/18/25 16:10 Proposed Procedure Side Surgeon p Quad Tendon Repair Bilateral Miguelangel Shukla MD Meds Allergies and Home Medications Allergies Allergy/AdvReac Type Severity Reaction Status Date / Time No Known Allergies Allergy Verified 06/18/25 13:35 Home Medication Medication Instructions Recorded bupropion HCl 150 mg 24 hr tablet, 150 mg PO QAM 06/12/24 extended release cholecalciferol (vitamin D3) 50 50 mcg PO DAILY 06/12/24 mcg (2,000 unit) capsule escitalopram oxalate 20 mg tablet 20 mg PO DAILY 06/12/24 fluticasone furoate 200 1 inh inhalation DAILY 06/12/24 mcg-vilanterol 25 mcg/dose inhalation powder (Breo Ellipta) gabapentin 300 mg capsule 300 mg PO QHS 06/12/24 lisinopril 20 mg tablet 20 mg PO DAILY 05/08/25 atorvastatin 40 mg tablet 40 mg PO HS 05/21/25 timolol maleate 0.5 % eye drops 1 drp ophthalmic (eye) BID 05/21/25 acetaminophen 500 mg tablet 1,000 mg (2 x 500 mg) PO TID #0 05/27/25 tabs aspirin 81 mg tablet,delayed 81 mg PO BID #0 tabs 05/27/25 release celecoxib 200 mg capsule 200 mg PO BID #0 caps 05/27/25 cyclobenzaprine 10 mg tablet 10 mg PO BID #0 tabs 05/27/25 docusate sodium 100 mg capsule 100 mg PO BID PRN Constipation #0 05/27/25 (Colace) caps ferrous sulfate 325 mg (65 mg 325 mg PO BID #0 tabs 05/27/25 iron) tablet folic acid 1 mg tablet 1 mg PO DAILY #0 tabs 05/27/25 multivit with mins-ferrous sulf 15 1 packet PO TID #0 ea 05/27/25 mg-folic 700 mcg oral powder packet (Phlexy-Vits) tamsulosin 0.4 mg capsule 0.4 mg PO HS #0 caps 05/27/25 zinc oxide 20 % topical ointment 1 applic topical BID PRN PRN #0 05/27/25 grams tramadol 50 mg tablet 50 mg PO Q6H PRN 06/12/25 Current Visit Medications: Current Medications Generic Name Dose Route Start Last Admin Trade Name Parthq PRN Reason Stop Dose Admin Acetaminophen 1,000 mg 06/18/25 06:00 Acetaminophen 500 Mg Tab PO 06/18/25 23:59 PREOP JOSE L Celecoxib 400 mg 06/18/25 06:00 Celecoxib 200 Mg Cap PO 06/18/25 23:59 PREOP JOSE L Ringer's Solution 1,000 mls @ 80 mls/hr 06/18/25 06:00 IV 06/18/25 23:59 INFUSION JOSE L Cefazolin Sodium/Dextrose 2 gm in 50 mls @ 100 mls/hr 06/18/25 06:00 Ancef Duplex IVPB 06/18/25 23:59 PREOP JOSE L Tranexamic Acid/Sodium Chloride 1,000 mg in 100 mls @ 600 mls/hr 06/18/25 06:00 IVPB 06/18/25 23:59 PREOP JOSE L IV Miscellaneous Supplies 1 each 06/18/25 06:00 Iv Access IV 06/18/25 23:59 DIRECTED JOSE L Sodium Chloride 0 ml 06/18/25 06:00 Normal Saline Flush 10 Ml Syr IV 06/18/25 23:59 PRN PRN Sodium Chloride 0 ml 06/18/25 06:00 Normal Saline 10 Ml Vial IJ 06/18/25 23:59 DIRECTED PRN Sterile Water 0 ml 06/18/25 06:00 Water,Injection,Sterile 10 Ml Vial IJ 06/18/25 23:59 DIRECTED PRN PFSH Active Problems Active Problems: Problem Status Onset Code Other spontaneous disruption of capsular ligament of right knee Acute M23.671 Other spontaneous disruption of capsular ligament of left knee Acute M23.672 History of total bilateral knee replacement Acute Z96.653 Iron deficiency anemia Acute D50.9 PSA elevation Acute R97.20 Elevated MCV Acute R71.8 Anemia Chronic D64.9 Blindness and low vision Acute H54.10 Macular degeneration Acute H35.30 Asthma Chronic J45.909 Hyperlipidemia Acute E78.5 Hypertensive disorder Chronic I10 Onychomycosis Acute B35.1 Depression Chronic F32.A Medical History Medical History History of bradycardia Urinary retention Aortic stenosis, moderate New on echo 05/20/25. Mild to Moderate Surgical History Surgical History Hx of knee surgery 1974, R Tobacco Smoking/Tobacco Use Status: Former Tobacco Use Alcohol Alcohol Intake: former Substance Use Substance use: Never Substance use type: does not use Vital Signs and Lab Results Lab Results Blood Type / Crossmatch: Antibody Screen NEGATIVE 05/22/25 Crossmatch See Detail 05/22/25 Complete Blood Count: WBC, (4.4-10.8) 7.81 10^3/uL 05/26/25, 06:22 RBC, (4.36-5.78) 2.75 10^6/uL L 05/26/25, 06:22 Hgb, (13.5-17.5) 8.6 g/dL L 05/26/25, 06:22 Hct, (40.0-50.0) 26.5 % L 05/26/25, 06:22 Plt Count, (130-400) 208 10^3/uL 05/26/25, 06:22 Complete Metabolic Panel: Sodium, (136-145) 140 mmol/L 05/26/25, 06:22 Potassium, (3.5-5.1) 3.9 mmol/L 05/26/25, 06:22 Chloride, (98-107) 103 mmol/L 05/26/25, 06:22 Carbon Dioxide, (21.0-32.0) 31.7 mmol/L 05/26/25, 06:22 BUN, (7-18) 20 mg/dL H 05/26/25, 06:22 Creatinine, (0.70-1.30) 0.7 mg/dL 05/26/25, 06:22 Est GFR (CKD-EPI 2020), (mL/min/1.73m2) 97.90 05/26/25, 06:22 Calcium, (8.5-10.1) 9.1 mg/dL 05/26/25, 06:22 Albumin, (3.4-5.0) 2.6 g/dL L 05/26/25, 06:22 Glucose, (74-106) 103 mg/dL 05/26/25, 06:22 Liver Function Panel: ALT, (16-63) 29 U/L 05/26/25, 06:22 AST, (15-37) 29 U/L 05/26/25, 06:22 Imaging and Studies Imaging and Studies Study information below may be from another EMR and interpreted by another provider. Please see original notes in EMR for more complete details. EKG Summary: 05-20-25 Exam: Resting ECG Reason for Exam: Systolic Hear Murmur Patient Location: O HR:71 bpm ECG Measurements Heart Rate 71 AXIS NM 193 P 15 QRSd 159 QRS 59 QT 404 T6 QTc 441 Conclusion Sinus rhythm...normal P axis, V-rate 60- 99 Probable left atrial enlargement...P >50mS, <-0.10mV V1 Right bundle branch block...QRSd>120, terminal axis(90,270) Echocardiogram Summary: 05-20-25 Conclusion Mild concentric left ventricular hypertrophy. Ejection fraction is 60%. Wall motion is normal Normal right ventricular size and function Both atria are normal in size The aortic valve is calcified. There is mild to moderate aortic stenosis with a peak gradient of 41 and mean 24 mmHg. Calculated aortic valve area is 1.5 cm??. There is mild aortic regurgitation Mild mitral annular calcification Mildly to moderately dilated aortic root and ascending aorta Anesthesia Assessment and Plan Anesthesia History Personal History: Other (hypotension) Family History: No Family History of Anesthesia Complications Exercise Tolerance Exercise Tolerance: Metabolic Equivalents>4 Pertinent Negatives Pertinent Negatives: No Symptoms of GERD, No Major Pulmonary Symptoms or Complaints and No History of CVA/TIA Cardiac & Pulmonary Exam Cardiac Exam: Heart Murmur Present Pulmonary Exam: Clear Bilateral Breath Sounds Implantable Cardiac Device Does patient have a Pacemaker or an ICD?: No Airway Exam Known Difficult Airway: No Mallampati Class: 2 Mouth Opening: Normal (> 3cm) Thyromental Distance: Greater than 3 cm Facial Hair: Full Mcfadden Neck Range of Motion: Full ROM Neck Circumference: Normal Teeth Condition: Generalized Poor Dentition and Other (no upper teeth) ASA Classification ASA Score: ASA 3 Emergency Case?: No NPO Status NPO Status: NPO Clears >2 hours, Solids >8 hours Anesthesia Plan Resuscitation Status: Full Code Anesthesia Technique: General Anesthesia Airway Planned: Endotracheal Tube Monitors Used: Standard Monitors and SedLine
[2025-06-18] MEDS: Celecoxib 200 MG CAP 400 MG PO (13:44)
[2025-06-18] MEDS: Acetaminophen 500 MG TAB 1000 MG PO ×2 (13:44→21:00)
[2025-06-18] MEDS: Lactated Ringers 1,000 ML 80 ML IV (14:00)
[2025-06-18] MEDS: ceFAZolin 2 GM/50 ML BAG IVPB (15:51)
--- NOTE | 2025-06-18 15:51 | W.PM.OP ---
Operative Note Operative Note PRE-OP DIAGNOSIS: Bilateral Capsular/Quadriceps Tendon Rupture PROCEDURE: Irrigation and debridement with quadriceps split and capsular repair of both knees SURGEON: Miguelangel Shukla AUTOMOBILE BODY REPAIRER: Chai Ardon ANESTHESIA TYPE: General LMA/ETT Refer to Anesthesia Record ESTIMATED BLOOD LOSS: 300 TOURNIQUET TIME: 0 COMPLICATIONS: None Patient was transported to: PACU Patient's condition: stable Indications: Luciano is a 70-year-old male who is status post bilateral knee replacements. He was discharged to health and rehab. While he left the hospital ambulating up to 30 feet or so, he gradually had some worsening on his function with notable weakness and imbalance. At the first postoperative visit it was clear that he had deficiencies of his arthrotomies extending into the quadriceps split and therefore I recommended proceeding back to the operating room for repair. I discussed details of the arthrotomy repair. I discussed risk to include pain, stiffness, bleeding, weakness, retear rerupture, need for repeat procedures, infection, blood clot. Despite these risk, he elected to proceed. Findings: Both knees had a deficient arthrotomy and capsular closure. There is no extension into the quadriceps attachment to the superior pole patella or the patellar ligament at the inferior pole of the patella. There were no signs of infection. Both knees were irrigated, debrided, and capsulotomy repaired with interrupted FiberWire sutures. Procedure Description: Luciano was greeted in the preoperative holding area where the correct side was identified and marked. The consent was reviewed with the patient and signed. The history and physical was updated. All questions were answered. Preoperative mediacations were administered: Acetaminophen 1000mg, Celebrex 400mg, and Gabapentin 300mg. He was taken back to the operating room. A general anesthestic was administered. The patient was placed into the supine position on the operating room table. Posts were placed for positioning during the procedure. All bony prominences were well padded. Prophylactic antibiotics in the form of Cefazolin were administered. Both legs were then prepped with Chloraprep and draped in a standard fashion with impervious stockinette and a bilateral extremity drape. A second prep with Chloraprep was performed prior to application of Iodine impregnated skin protection. A timeout to confirm correct identity, side and site, procedure, allergies, anesthesia, and medical concerns was performed. Starting with the left knee the previous incision was excised with 2 to 3 mm margin on either side. The subcutaneous tissue was incised which expose the extensor mechanism and the patella and an obvious defect of the arthrotomy and quadriceps split. There is some joint fluid present some blood but there is no other signs of infection or purulence. Suture material was removed. The capsule was inspected which showed to be approximated up to the inferior aspect of the distal one third, of the patella. And then had a slight transverse rupture to the capsule medially and then extended in the previous surgical arthrotomy and quadriceps split. These edges were debrided aggressively until there was healthy tissue present. The apex was intact and there was no proximal extension into the musculature. Debridement of all the inflammatory and scar tissue was performed in and around the knee superficially and deep. Once the tear was fully identified and the tissue was debrided fully I then irrigated aggressively with saline. Debridement was also performed during this time and once again the wound was inspected for any necrotic or unhealthy appearing tissue. I then irrigated the knee with Betadine solution, allowing to sit in the knee for 3 minutes before washing out with saline. Then, attention was turned to reapproximation. The capsule and quadricep split easily reapproximated and thus I decided to proceed with a primary repair. This was done with the knee in 90 degrees of flexion. Multiple #2 FiberWire sutures were utilized in interrupted fashion to reapproximate the quadriceps split and the capsulotomy. Interrupted suture tape was also utilized to close other areas. This was then fully inspected and 90 degrees of flexion and extension appear to be watertight without any gaps or pull-through's. The knee and the tissues deep and superficial were then injected with half of a mixture of 200 mg of ropivacaine, 30 mg of ketorolac, and 0.5 mg of epinephrine. The deep tissues were closed with a 0 Vicryl followed by 2-0 Monocryl. The skin was closed with a running 3-0 Monocryl in a subcuticular fashion. This was reinforced with skin glue. A Mepilex over dressing was applied. Attention was turned to the right knee. The stockinette was open and the knee was prepped with ChloraPrep. After the dried, Ioban dressing was placed. Similar to the left knee, the right knee's previous incision was excised with 2 to 3 mm margin on either side. The subcutaneous tissue was incised which expose the extensor mechanism and the patella and an obvious defect of the arthrotomy and quadriceps split. There is some joint fluid present some blood but there is no other signs of infection or purulence. Suture material was removed. The capsule was inspected and did not show the same medial transverse tear that the left side had. However, at this rupture of the capsulotomy extended to just distal of the inferior pole of the patella. The edges of the capsule and the quadriceps were debrided aggressively until there was healthy tissue present. The apex was intact and there was no proximal extension into the musculature. Debridement of all the synovitis and scar tissue was performed in and around the knee superficially and deep. Once the tear was fully identified and the tissue was debrided fully I then irrigated aggressively with saline. Debridement was also performed during this time and once again the wound was inspected for any necrotic or unhealthy appearing tissue. I then irrigated the knee with Betadine solution, allowing to sit in the knee for 3 minutes before washing out with saline. Then, attention was turned to reapproximation. The capsule and quadricep split easily reapproximated and I elected a primary type repair like the left side. This was done with the knee in 90 degrees of flexion. Multiple #2 FiberWire sutures were utilized in interrupted fashion to reapproximate the quadriceps split and the capsulotomy. Interrupted suture tape was also utilized to close other areas. This was then fully inspected and 90 degrees of flexion and extension appear to be watertight without any gaps or pull-through's. The knee and the tissues deep and superficial were then injected with the remaining half of a mixture of 200 mg of ropivacaine, 30 mg of ketorolac, and 0.5 mg of epinephrine. The deep tissues were closed with a 0 Vicryl followed by 2-0 Monocryl. The skin was closed with a running 3-0 Monocryl in a subcuticular fashion. This was reinforced with skin glue. A Mepilex over dressing was applied. Both knees were placed into a knee immobilizers. He will be weightbearing as tolerated with a knee immobilizers. This is precautionary for the next 2 weeks to limit deep flexion particular with rising from a chair. He was awakened from anesthesia and taken to the PACU in a stable condition without complication. Date of Procedure: 06/18/25
[2025-06-18] MEDS: TRANEXAMIC ACID/SOD. CHL. 1,000 MG/100 ML BAG 600 MG IVPB (15:58)
[2025-06-18] MEDS: EPINEPHrine 1 MG/ML AMP pres-free (17:15)
[2025-06-18] MEDS: ROPIvacaine 0.2% 200 MG/100 ML BAG (17:15)
[2025-06-18] MEDS: Ketorolac 30 MG/ML VIAL (17:15)
--- NOTE | 2025-06-18 18:12 | W.ANESPOSTOP ---
Postoperative Evaluation Date, Time and Location Date Performed: 06/18/25 Time Performed: 18:12 Patient Location: PACU Vital Signs Most Recent Imported Vital Signs: Most Recent Vital Signs Temp Pulse Resp BP Pulse Ox 36.5 C 90 17 100/62 95 06/18/25 18:05 06/18/25 18:11 06/18/25 18:11 06/18/25 18:11 06/18/25 18:10 Assessment Mental Status: Awake (Alert & Oriented to Patient Baseline) Airway and Respiratory Function: Patent airway with normal (patient baseline) respiratory exam Cardiovascular Function: Hemodynamically Stable Hydration Status: Adequately Hydrated Nausea & Vomiting: No Nausea or Vomiting Pain: Pt. Denies Any Pain Peripheral Nerve Block: Patient did not receive a nerve block
--- NOTE | 2025-06-18 18:52 | W.PC.ACHO ---
Registration Status: ADM IN Primary Language: Preferred Language: Medical / Surgical History (Updated 06/17/25 @ 12:51 by Reinaldo Saucedo) History of bradycardia Urinary retention Aortic stenosis, moderate (Updated 06/12/25 @ 10:55 by Marge Barron RN) Hx of knee surgery Most Recent Vital Signs Temperature 36.7 C 06/18/25 18:15 Pulse 89 06/18/25 18:21 Pulse Rhythm Regular 06/18/25 18:38 Pulse 90 06/18/25 18:21 Respiratory Rate 24 06/18/25 18:21 Respiratory Effort Normal 06/18/25 18:38 Respiratory Depth Normal 06/18/25 18:38 Respiratory Pattern Normal 06/18/25 18:38 Blood Pressure 119/61 06/18/25 18:21 Blood Pressure Mean 81 06/18/25 18:21 Pulse Oximetry 95 06/18/25 18:21 Respiratory End-tidal CO2 27 06/18/25 18:21 Oxygen Delivery Method Room Air 06/18/25 18:15 Oxygen Flow Rate 0 06/18/25 13:21 Allergies No Known Allergies Allergy (Verified 06/18/25 13:35) Active Medications Generic Name Dose Route Start Last Admin Trade Name Freq PRN Reason Stop Dose Admin Acetaminophen 1,000 mg 06/18/25 06:00 06/18/25 13:44 Acetaminophen 500 Mg Tab PO 06/18/25 23:59 1,000 mg PREOP JOSE L Administration Celecoxib 400 mg 06/18/25 06:00 06/18/25 13:44 Celecoxib 200 Mg Cap PO 06/18/25 23:59 400 mg PREOP JOSE L Administration Ringer's Solution 1,000 mls @ 80 mls/hr 06/18/25 06:00 06/18/25 17:52 IV 06/18/25 23:59 80 mls/hr INFUSION JOSE L Infusion Cefazolin Sodium/Dextrose 2 gm in 50 mls @ 100 mls/hr 06/18/25 06:00 06/18/25 16:21 Ancef Duplex IVPB 06/18/25 23:59 Infused PREOP JOSE L Infusion Tranexamic Acid/Sodium Chloride 1,000 mg in 100 mls @ 600 mls/hr 06/18/25 06:00 06/18/25 16:08 IVPB 06/18/25 23:59 Infused PREOP JOSE L Infusion IV IV Catheter Type [Left Forearm Peripheral IV ] IV Catheter Gauge [Left 20 Forearm] Diet Orders Category Date Time Status Regular/Normal [DIET] Nutrition 06/18/25 Dinner Active Intake and Output - 24 Hour Total 06/13/25 08:57 thru 06/18/25 18:20 Intake Total 800 Output Total 500 Balance 300 Weight 122.6 kg Intake: IV 800 Output: Urine 200 Estimated Blood Loss 300 Other: Urine Color Dark Kimberly Urine Odor Strong Emesis Description None Falls Risk Assessment History of Falls No History 06/18/25 18:38 Contributing Factors No Factors 06/18/25 18:38 Ambulatory Aids Uses ambulatory device 06/18/25 18:38 Tubes/Lines W/no contributing factors 06/18/25 18:38 Gait Evaluation W/no contributing factors 06/18/25 18:38 Cognition No cognitive impairment 06/18/25 18:38 Fall Total Score 35 06/18/25 18:38 Level of Risk Moderate Risk 06/18/25 18:38 v v v v v v v v v Sending and/or Receiving Nurses: Please use comment section below to note any information pertinent to the patient hand-off not included above. Information / Comments: Report received from: Melonie HAMMER at the bedside, pt arrived to unit @1034.
[2025-06-18] MEDS: ceFAZolin 1 GM/50 ML BAG IVPB (20:30)
[2025-06-18] MEDS: Atorvastatin 40 MG TAB PO (20:31)
[2025-06-18] MEDS: Gabapentin 300 MG CAP PO (20:31)
[2025-06-18] MEDS: Aspirin E.C. 81 MG TABEC PO (20:31)
[2025-06-18] MEDS: Cyclobenzaprine 10 MG TAB PO (20:31)
[2025-06-18] MEDS: Tamsulosin 0.4 MG CAPCR PO (20:31)
[2025-06-18] MEDS: Normal Saline Flush 10 ML SYR IV (20:32)
[2025-06-18] MEDS: oxyCODONE 5 MG TAB PO (20:58)
[2025-06-18] MEDS: Celecoxib 200 MG CAP PO (20:59)
[2025-06-18] MEDS: Timolol 0.5% 5 ML BTL OP (21:12)
[2025-06-19] VITALS (7 sets, daily range): BP systolic 91–112; BP diastolic 62–69; PULSE 65–88; RESP 16–18; TEMP 36.2–37.2; O2SAT 91–93
[2025-06-19] MEDS: ceFAZolin 1 GM/50 ML BAG IVPB ×3 (04:22→20:24)
[2025-06-19 07:32] LABS: HCT 31.8 % (40.0-50.0); HGB 10.3 g/dL (13.5-17.5); MCH 32.4 pg (27.0-33.0); MCHC 32.4 % (32.0-36.0); MCV 100 fL (80-95); MPV 9.9 fL (8.0-11.0); Platelet Count 218 10^3/uL (130-400); RBC 3.18 10^6/uL (4.36-5.78); RDW 13.2 % (11.8-14.1); RDW-SD 48.4 fL; WBC 7.77 10^3/uL (4.4-10.8)
[2025-06-19 07:51] LABS: Anion Gap 5.1 mmol/L (3-11); BUN 43 mg/dL (7-18); CO2 28.9 mmol/L (21.0-32.0); Calcium 8.8 mg/dL (8.5-10.1); Chloride 105 mmol/L (98-107); Glucose 115 mg/dL (74-106); Sodium 139 mmol/L (136-145)
[2025-06-19 08:01] LABS: Potassium 6.2 mmol/L (3.5-5.1)
--- NOTE | 2025-06-19 08:15 | RT.EKG_ITS ---
APPROVED REPORT Exam: Resting ECG Reason for Exam: hyperkalemia Patient Location: I HR:93 bpm ECG Measurements Heart Rate 93 AXIS OR 197 P 43 QRSd 135 QRS 49 QT 368 T 3 QTc 458 Conclusion Sinus rhythm...normal P axis, V-rate 50- 99 Right bundle branch block...QRSd>120, terminal axis(90,270) Baseline wander in lead(s) V6
[2025-06-19] MEDS: Normal Saline 1,000 ML 1000 ML IV (08:41)
[2025-06-19] MEDS: Cyclobenzaprine 10 MG TAB PO ×2 (09:23→20:25)
[2025-06-19] MEDS: Acetaminophen 500 MG TAB 1000 MG PO ×3 (09:23→21:38)
[2025-06-19] MEDS: Folic Acid 1 MG TAB PO (09:23)
[2025-06-19] MEDS: buPROPion-XL 150 MG TABCR PO (09:24)
[2025-06-19] MEDS: Multivitamin w/Minerals TAB 1 TAB PO (09:24)
[2025-06-19] MEDS: Aspirin E.C. 81 MG TABEC PO ×2 (09:24→20:25)
[2025-06-19] MEDS: Escitalopram 20 MG TAB PO (09:24)
[2025-06-19] MEDS: Cholecalciferol (Vitamin D3) 1,000 UNIT TAB 2000 UNITS PO (09:24)
[2025-06-19] MEDS: Pantoprazole 40 MG TABCR PO (09:24)
[2025-06-19] MEDS: Celecoxib 200 MG CAP PO ×2 (09:24→20:25)
[2025-06-19 11:20] LABS: Anion Gap 6.5 mmol/L (3-11); BUN 42 mg/dL (7-18); CO2 28.5 mmol/L (21.0-32.0); Calcium 8.6 mg/dL (8.5-10.1); Chloride 105 mmol/L (98-107); Glucose 104 mg/dL (74-106); Potassium 5.3 mmol/L (3.5-5.1); Sodium 140 mmol/L (136-145)
--- NOTE | 2025-06-19 12:06 | PDOC.CMIN ---
Date of service: 06/19/25 Time of Service: 16:28 Care Management Initial Assmt Initial Assessment Reason for Hospitalization: Bilateral Capsular/Quadriceps Tendon Rupture Functional Status/Living Situation Patient Presentation: Luciano (prefers to be called “Ed”) was lying in bed and awake when CM met with him. He was pleasant, cooperative, and engaged appropriately in conversation. Ed underwent a bilateral total knee replacement with intraoperative navigation on 05/20/25. Once medically stable, he was discharged to [facility] for short-term rehabilitation to continue his recovery. On 06/12, Ed had an orthopedic clinic visit; See documentation for details. On 06/18, he underwent another orthopedic procedure and was directly admitted following the operation. Ed reports that he has maintained his apartment at [facility], where his friends are assisting with his finances during his rehabilitation stay. These friends have also been visiting him at [facility]. At home, Ed is connected with the [place] [facility] and receives services through the [facility] program. His showcase maker is named Fadumo (last name and contact information unknown). Through [facility], Ed receives assistance with showering and light housekeeping. Prior to this admission, Ed was receiving physical therapy through [facility] three times per week. A new home health referral will likely be needed following completion of STR. Per provider, it is anticipated that Ed will return to [facility] tomorrow and continue working with physical therapy while there; Facility aware and agreeable to his anticipated return. Per PT, Ed should avoid bending his knees at this time; transportation recommendations are pending. Ed expressed that he is looking forward to returning to [facility], where he enjoys both the food and the company of the residents. CM will continue to follow. 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: N 06/06/25, 20:57 Date Asked 06/14/25 06/14/25, 14:05 AD Date Reviewed COLST On File at [facility] COLST Date Scanned Code Status Resuscitation Status Full Code Portal Pt does not currently have a portal and education provided: Yes Insurance Coverage/Financial Issues Insurance: Medicare Part A & B - [id number] Medicaid [facility] - [id number] Care Team Visit Care Team Role Provider Type Vicki Gill Primary Care Provider [employer] InPatient Killian Haider Other Providers OTHER Miguelangel Shukla MD Admit Provider [facility] STAFF PHYSICIAN Attending Provider Discharge Potential Discharge Needs: PT Evaluation, PCP F/U Appt and Surgical F/U Appt Anticipated Barriers to Discharge: None Identified Patient/Family Education Needs: Review discharge instructions, discuss Ask Me Three Transportation: RCT RCT Transportation: Wheel chair van (vs EMS) Plan: Anticipate Luciano will be discharged back to SNF at [facility] once medically ready for discharge, likely tomorrow. It is recommended he follow up with his community providers and continue per his discharge plan of care. His transportation will be dependant on mobility and PT recommendation at time of discharge. CM will continue to follow. Social Determinants of Health Screening Social Determinants of health last assessed in clinic: 06/19/25 Will the Patient Participate in the Screening?: Yes Do you worry about having a steady place to live?: no Problems where you live: no known problems In the past 12 months, have you had to go without electric, gas, oil or water in your home?: no 1. Within the past 12 months, we worried whether our food would run out before we got money to buy more.: Never true 2. Within the past 12 months, the food we bought just didn't last and we didn't have money to get more.: Never true Has lack of transportation kept you from medical appointments or from doing things needed for daily living?: no Has anyone in your life made you feel unsafe or unsupported?: no How hard is it for you to pay for the very basics like food, housing, medical care, and heating? Would you say it is:: Not hard at all Do you want help finding or keeping work or a job?: I do not need or want help If for any reason you need help with day-to-day activities such as bathing, preparing meals, shopping, managing finances, etc., do you get the help you need?: I don’t need any help How often do you feel lonely or isolated from those around you?: Never Do you speak a language other than [place] at home?: No PFSH All Active Problems (Updated 06/19/25 @ 12:25 by Miguelangel Shukla MD) Hyperkalemia (Acute) Other spontaneous disruption of capsular ligament of right knee (Acute) Other spontaneous disruption of capsular ligament of left knee (Acute) History of total bilateral knee replacement (Acute) Iron deficiency anemia (Acute) PSA elevation (Acute) Elevated MCV (Acute) Anemia (Chronic) Blindness and low vision (Acute) Macular degeneration (Acute) Asthma (Chronic) Hyperlipidemia (Acute) Hypertensive disorder (Chronic) Onychomycosis (Acute) Depression (Chronic) Medical History (Updated 06/19/25 @ 12:25 by Miguelangel Shukla MD) History of bradycardia Urinary retention Aortic stenosis, moderate New on echo 05/20/25. Mild to Moderate Surgical History Hx of knee surgery 1974, R Social History Smoking/Tobacco Use Status: Former Tobacco Use Smoking risk assessment performed?: Yes Alcohol Intake: former Drug use: Never Substance use type: does not use Housing: house Do you feel safe at home: Yes Readmission Within the Past 30 Days Yes or No: Yes Date of First Admission Date of 1st Admission: 05/20/25 Date of this Admission Date of Admission: 06/18/25 This admission was: Direct Admit Office Visit Since 1st Admission Have you seen your PCP in the office since discharge?: No Describe barriers for scheduling or getting an appointment: At [facility] Speicalist Appointments Have you seen any other specialist since your 1st Admission?: Yes Date you saw the Specialist: 06/12 Specialist Seen: Doctor Miguelangel Shukla I. Interview patient and/or Family Difficulty reaching your doctor or getting an office appt?: No Have you had trouble purchasing/ or taking medication?: No How do you take your medications and set up your pills?: STR Have you had trouble with getting meals at home?: No Did you feel ready for discharge when you left the last time: Yes Were services received that you thought were set up on disch: Yes What services were received?: STR Did you call your physician beore you came to the ED?: Yes Ask the Care Team Members: What do you think caused the patient to be readmitted: Per report, most consistent with a deficient capsular repair of the right side and at least a partial disruption of the capsule repair on the left side. ED visits How many ED visits in the past 12 months: 0 Assessment for Readmission Summary of readmission circumstances, based upon interviews: This patient was seen in the office by Dr. Shukla who proceeded with a second surgical intervention. patient returned to inpatient prior to returning to SNF
[2025-06-19] MEDS: Timolol 0.5% 5 ML BTL OP ×2 (12:15→20:23)
--- NOTE | 2025-06-19 12:23 | W.PM.PROGNOT ---
Date of Service Date of service: 06/19/25 Time of Service: 07:45 Assessment and Plan Assessment and plan (1) Other spontaneous disruption of capsular ligament of right knee: Status: Acute (2) Other spontaneous disruption of capsular ligament of left knee: Status: Acute Assessment and plan: Ed is postop day #1 status post repair of bilateral capsular disruption as well as a quadriceps of both knees. These been primary repair and he is in knee immobilizers. He may remove the knee immobilizer just for hygiene and for skin checks but otherwise he should be in place. He is weightbearing as tolerated with the knee immobilizers. I reviewed this with Ed and the importance of trying to get these tissues to heal. We will work with physical therapy this morning. I expected discharge back to health and rehab. His initial labs are encouraging except for his increased potassium. I have encouraged him to increase his intake of fluids and proteins. (3) Hyperkalemia: Status: Acute Assessment and plan: Increase to 6.2. EKG is without acute changes. We have a liter fluid bolus and check labs later this morning. He also has a slight increase in his creatinine and does have a little bit of an acute chronic kidney injury as well with recent surgery which could be precipitating the hyperkalemia. Subjective Subjective Interval history since last seen: Ed reports to be doing okay. He did have some pain last night. Describes as achy pain about the anterior thighs bilaterally. His potassium this morning was up to 6.3 and thus I gave him a fluid bolus. EKG was obtained which is negative for any cardiac changes. He has not been out of bed but expect to get up with PT this morning. Denies chest pain or shortness of breath. Exam Narrative Exam Narrative: Resting in the bed. No acute distress. Alert and orient x 3. Bilateral knee immobilizer intact. Bilateral knee dressings are clean dry and intact. Objective Last Vital Signs Temp 36.6 C 06/19/25 11:31 Pulse 88 06/19/25 11:31 Resp 16 06/19/25 11:31 BP 99/68 L 06/19/25 11:31 Pulse Ox 93 06/19/25 11:31 Laboratory Results - last 24 hr 06/19/25 06/19/25 06:15 11:00 WBC 7.77 RBC 3.18 L Hgb 10.3 L Hct 31.8 L MCV 100 H MCH 32.4 MCHC 32.4 RDW 13.2 Plt Count 218 MPV 9.9 Sodium 139 140 Potassium 6.2 H* 5.3 H Chloride 105 105 Carbon Dioxide 28.9 28.5 Anion Gap 5.1 6.5 BUN 43 H 42 H Creatinine 1.2 1.3 Est GFR (CKD-EPI 2020) 64.25 58.37 Glucose 115 H 104 Calcium 8.8 8.6 Time Spent with Patient Time Spent with Patient: 25-34 minutes Time was spent: preparing to see the patient(eg.review tests), obtaining and/or reviewing separately otained hiistory, ordering medications,tests, procedures, indepentently interpreting results and counseling the patient
--- NOTE | 2025-06-19 13:50 | PTTR_ITS ---
PT Notes Visit Reasons: Bilateral Capsulotomy Ruptures Inpatient Physical Therapy Treatment Note [facility] Date: 06/19/2025 PRECAUTIONS:WBAT B LE with knee immobilizers SUBJECTIVE: OBJECTIVE: incontinent of large amount of urine PAIN: denied VITALS: monitored by nursing Therapeutic Activities ([id number][]): Direct one-on-one instruction in dynamic activities to improve functional performance. Provided skilled cues and instruction on performance and technique throughout. BED MOBILITY/TRANSFERS Rolling L/R: cues for hand assist to get hand to rail Sit-supine: min A of 2 Sit-stand: from elevated seat height of 25 height mod A of 2 pressing up with hands on FWW Stand-sit: to an elevated surface >25 inch mod A of 2 ( ensure feet slide forward to accommodate knee immobilizer/ lack of knee flexion) Chair-bed: min A of 2 with FWW once standing Ambulation Assistive Device: FWW Weight bearing: WBAT with B knee immobilizers Assist: min A of 2 followed by chair with elevated seat height and cues to advance FWW Distance: 15 feet Deviation: hip hike with vault, anterior trunk with narrow PARKER, excessive lateral weight shift to advance, adequate foot clearance, shortened step length.foot flat at weight acceptance. ASSESSMENT: Pt tolerated OOB to recliner for 2.5 hours with no reports of pain. Pt required less cues to attend task as compared to evaluation. Able to progress with distance of ambulation with FWW. Pt limited by knee immobilizers , need for elevated surface heights and impaired BUE strength. PLAN: 1-2x/day, 7 days/week x 1 week. Plan of care has been reviewed with the ENTERPRISE ACCOUNT EXECUTIVE providing the service under Physical Therapy direction. Initiate Physical Therapy intervention for strengthening, bed mobility, transfers, gait, stairs, balance training, use of assistive device. TREATMENT CODE/TIME: 34252/8008-6339 DISCHARGE RECOMMENDATION: Return to SNF with skilled PT/OT
--- NOTE | 2025-06-19 13:50 | PT.INIE ---
PT Notes Visit Reasons: Bilateral Capsulotomy Ruptures Physical Therapy Inpatient Initial Evaluation Date: 06/19/2025 Referring Doctor:Dr Shukla PT Orders: PT CONSULT: s/p Ortho surgery Precautions: WBAT BLE with knee immobilizer at all times, Fall , Standard Patient Profile/Admitting Diagnosis: Pt is a 70 yo male presenting s/p Repair of B Capsular and Quad tendon rupture. Pt underwent B TKA on 05/20/2025. He was discharged to SNF for rehab on 05/27/2025. He was seen for ortho f/u on 06/12 with noted decline in function and arthrotomies with extending to Quad split BLE. Pt to OR on 06/18/2025 for surgical repair of B capsule and quad tendon with clean out of scar tissue. Pt able to achieve 90 degrees of flexion while in OR. Pt is seen on POD #1 with B knee immobilizers in place at all times as conservative management to support B repair. Knee Immobilizers May be removed for hygiene and skin inspection when in bed. PMHX: Blindness and low vision (Acute) Macular degeneration (Acute) Asthma (Chronic) Hyperlipidemia (Acute) Hypertensive disorder (Chronic) Onychomycosis (Acute) Depression (Chronic) Bilateral primary osteoarthritis of knee (Chronic) depo medrol 06/17/24 Medical History (Updated 05/20/25 @ 13:44 by Eligio Oh CRNA) Aortic stenosis, moderate New on echo 05/20/25. Mild to Moderate Surgical History Hx of knee surgery 1974, R Social History/Home Situation: In an apartment with no stairs to enter. He is independent ambulation with a 4 wheeled walker with seat and brakes. Patient has homemaking services, and groceries delivered from local market. Equipment Owned/DME: Four-wheel walker, wooden cane Subjective: Patient reports he has visual impairments due to macular degeneration. He reports he is feeling better than he was yesterday. Objective: [] General Observation: male appears older than stated age, semireclined in bed with ice packs in his room. Mental Status: Alert and oriented to person, situation. Short-term memory deficits noted Pain: denies ROM: [] Right Upper Extremity: shoulder flexion to 90 degrees , elbow and hand WNL Left Upper Extremity: Shoulder flexion 60 degrees AAROM, elbow and hand WNL Right Lower Extremity: hip flexion limited by hamstring length with knee extension , Knee not tested Left Lower Extremity: hip flexion limited by hamstring length with knee extension , Knee not tested Strength: [] Right Upper Extremity: shoulder 3-/5, elbow 4/5, grasp strong Left Upper Extremity: shoulder 4/5, elbow 3/5, grasp strong B Lower Extremity: functionally hip 3-/5 knee NT ankle >/=to 3/5 Sensation: intact Bed Mobility/Transfers: [] Supine to sit mod A of 2 Sit to stand Mod A of 2 from elevated bed of >25 Stand to sit mod A of 2 and cues to scoot/slide feet forward Bed to chair step turn with FWW mod A of 2 Gait: ambulate 10 feet with FWW B knee immobilizers Mod A of 2 with close follow with high/ elevated seat height of chair. Deviation: hip hike with vault, anterior trunk with narrow PARKER, excessive lateral weight shift to advance, adequate foot clearance, shortened step length.foot flat at weight acceptance. Balance: [] Static Sitting: fair( - ) retropulsive d/t impaired hamstring length B Dynamic Sitting:poor Static Standing: Fair with BUE of FWW Dynamic Standing: Fair - with UE support Special Tests: [] Mobility Limitations Standardized Measure [] [facility] 6 clicks Basic Mobility Inpatient Short Form: [] Raw Score: 12 CMS Score: 68.66% Informed Consent/Education: Patient instructed in purpose of PT consult. Treatment: 80783:functional transfer training with DAVIS Cuellar and JUSTYN for use of elevated bed and chair heights d/t B Knee immobilizers in place at all times. Pt needs assistance to transition onto B feet . He is unable to push up from surface and requires BUE on FWW to assist with press up to stand . Assessment: Patient is a 70 yo male who presents with clinical signs and symptoms consistent with current/admitting diagnoses that have resulted to mobility limitations, gait instability, generalized weakness, and impairment of motor control as demonstrated by the following impairment level findings: 1. Decreased strength to BLE/ BUE major muscle groups 2. Impaired standing balance 3. Limitation of joint range of motion in B knee, B Shoulders 4. B knee immobilizers at all times 5. impaired hamstring length B limiting his ability to sit in long sitting safely. 6. cognitive impairments/ impaired memory 7. difficulty attending to task/ easily distracted. Impairments are contributing to the following functional limitations: 1. Inability to safely ambulate without assistive device 2. Increase completion time for mobility ADL performance 3. Increased fall risk 4. Decline in transfer skills 5. Decline in bed mobility skills Patient is assessed as a moderate complexity based on the following: History: 70-year-old male with impairment level findings, functional limitations, and past medical history as indicated above Examination: Demonstrable impairment in strength, balance, and mobility level with underlying impairments and functional limitations as documented above Presentation: stable/evolving Decision Making:moderate Goals x 3 days: 1. bed mobility with supervision 2. transfers with FWW knee immobilizers and min A of 2 from surfaces >25 3. amb with FWW knee immobilizers and min A of 2 > 30 feet Plan of Care/Treatment Plan: PT evaluation and 1-2 treatment session only for functional mobility training using recommended AD and for HEP instruction. DISCHARGE RECOMMENDATIONS: Return to SNF with skilled PT/OT TREATMENT CODE/TIME:19916, 14987/[id number], [id number] Thank you for the opportunity to participate in the care of this patient. Neva Marsh PT [place] [facility]
--- NOTE | 2025-06-19 15:07 | PHA.REVIEW2 ---
Pharmacy Admission Review Admission Clinical Review Admission Pharmacy Review: Hyperkalemia (Acute) Other spontaneous disruption of capsular ligament of right knee (Acute) Other spontaneous disruption of capsular ligament of left knee (Acute) No Known Allergies Allergy (Verified 06/18/25 13:35) Resuscitation Status Full Code Height 6 ft Weight 122.6 kg Comments Comments/Follow Ups: POD#1 status post repair of bilateral capsular disruption as well as a quadriceps of both knees Pharmacy Admission Review Renal Dosing Renal Dosing: BUN 42 mg/dL (7-18) H 06/19/25 11:00 Creatinine 1.3 mg/dL (0.70-1.30) 06/19/25 11:00 Medications needing adjustments: Reviewed (CrCl 69.4 mL/min) List of meds needing interventions: Current medications are okay Anticoagulation Anticoagulation: Hgb 10.3 g/dL (13.5-17.5) L 06/19/25 06:15 Hct 31.8 % (40.0-50.0) L 06/19/25 06:15 Plt Count 218 10^3/uL (130-400) 06/19/25 06:15 Creatinine 1.3 mg/dL (0.70-1.30) 06/19/25 11:00 DVT Prophylaxis: Reviewed (SCDs/TEDs- POD#1) Opiate Usage Evaluate Pain Scale/Pains Meds: Reviewed (oxycodone 5mg q3h PRN - 5mg/24hrs) Scheduled Bowel Reg ordered if on Opiates?: No (PRN docusate) Relevant Labs Relevant Labs: Sodium 140 mmol/L (136-145) 06/19/25 11:00 Potassium 5.3 mmol/L (3.5-5.1) H 06/19/25 11:00 Chloride 105 mmol/L (98-107) 06/19/25 11:00 Electrolytes, C-Reactive P, ESR: Reviewed (K down from 6.2 this AM) Cardiac Review BP, HR, EF%: Reviewed (BP 99/68 and HR WNL) List meds needing interventions: Has order for lisinopril 20mg daily QTc Review QTc: Reviewed (458 from 06/19/25) IV to PO Switch IV Medications: Reviewed (cefazolin and ondansetron) Home Meds Home Med List reviewed: Reviewed Relevent Home Meds Not ordered & why?: ferrous sulfate, Breo Ellipta (substituted with Symbicort per pharmacy protocol) and tramadol (PRN) Current Meds Current Medication Order Review: Intervened Comments: Added IV access order set Pharmacy Antibiotic Review Relevant Labs: WBC 7.77 10^3/uL (4.4-10.8) 06/19/25 06:15 Temperature 36.6 C Temperature 36.6 C Temperature 36.2 C Pharmacy Antibiotic Activity: Reviewed, no change Comments: On cefazolin post op Comments Comments/Follow Ups: POD#1 status post repair of bilateral capsular disruption as well as a quadriceps of both knees
[2025-06-19] MEDS: Gabapentin 300 MG CAP PO (20:25)
[2025-06-19] MEDS: Atorvastatin 40 MG TAB PO (20:25)
[2025-06-19] MEDS: Normal Saline Flush 10 ML SYR IVP (20:25)
[2025-06-19] MEDS: Tamsulosin 0.4 MG CAPCR PO (20:25)
[2025-06-20] MEDS: ceFAZolin 1 GM/50 ML BAG IVPB (04:00)
[2025-06-20 07:04] LABS: Anion Gap 5.6 mmol/L (3-11); BUN 37 mg/dL (7-18); CO2 28.4 mmol/L (21.0-32.0); Calcium 8.5 mg/dL (8.5-10.1); Chloride 105 mmol/L (98-107); Glucose 89 mg/dL (74-106); Potassium 4.9 mmol/L (3.5-5.1); Sodium 139 mmol/L (136-145)
[2025-06-20 07:25] VITALS: BP 112/71; PULSE 61; RESP 17; TEMP 36.5; O2SAT 96
--- NOTE | 2025-06-20 07:48 | PT.INTREAT ---
Date of service: 06/19/25 Time of Service: 13:13 PT Notes Visit Reasons: Bilateral Capsulotomy Ruptures Inpatient Physical Therapy Treatment Note [facility] Date: 06/19/2025 PRECAUTIONS:[] SUBJECTIVE: [] OBJECTIVE: [] PAIN: [] VITALS: Pre-Treatment: [] Post-Treatment: [] Therapeutic Activities ([id number][]): Direct one-on-one instruction in dynamic activities to improve functional performance. BED MOBILITY/TRANSFERS Rolling L/R: [] Supine-sit: [] Sit-supine: [] Sit-stand: [] Stand-sit: [] Bed-Chair: [] Chair-bed: [] Provided skilled cues and instruction on performance and technique throughout. Direct one-on-one instruction and skilled instruction in: [] employing an assistive device [] modified weight-bearing status [] movement sequencing [] turning and movement with proper form [] Provided verbal cues for equipment management and technique [] Provided instruction in gait pattern [] Patient education regarding pacing and breathing techniques to maximize activity tolerance AMBULATION Assistive Device: [] Weight bearing: [] Assist: [] Distance: [] Deviation: [] ASSESSMENT: [] PLAN: 1-2x/day, 7 days/week x 1 week. Plan of care has been reviewed with the LANDSCAPE ARCHITECT AND PLANNER providing the service under Physical Therapy direction. Initiate Physical Therapy intervention for strengthening, bed mobility, transfers, gait, stairs, balance training, use of assistive device. [facility] TREATMENT CODE/TIME: 25307/[id number] DISCHARGE RECOMMENDATION: Return to SNF with OT PT
--- NOTE | 2025-06-20 08:12 | PT.INTREAT ---
PT Notes Visit Reasons: Bilateral Capsulotomy Ruptures Date: 06/20/2025 PRECAUTIONS: WBAT B LE with knee immobilizers SUBJECTIVE: pt in recliner when approached for therapy, pt agrees to participating with therapy intervention OBJECTIVE: PAIN: 1/10 at worst, 0/10 at best VITALS: monitored by nursing Therapeutic Activities 74186: Direct one-on-one instruction in dynamic activities to improve functional performance. BED MOBILITY/TRANSFERS Rolling L/R: min A Supine-sit: min A Sit-supine: min A Sit-stand: max A Stand-sit: max A Bed-Chair: max A Chair-bed: max A Provided skilled cues and instruction on performance and technique throughout. Gait Training 50646: Direct one-on-one instruction and skilled instruction in: Employing an assistive device Modified weight-bearing status Movement sequencing Turning and movement with proper form Provided verbal cues for equipment management and technique Provided instruction in gait pattern Patient education regarding pacing and breathing techniques to maximize activity tolerance GAIT Assistive Device: FWW Weight bearing: WBAT Assist: CGA Distance: 60'x 2 Deviation: terminal knee extension with bilateral knee immobilizers Therapeutic Exercises 12643: Direct one-on-one instruction in therapeutic exercises to develop strength, endurance, range of motion and flexibility. Exercises: Seated SLR [id number] Seated hip [id number] Supine SLR [id number] Supine hip abduction [id number] Provided skilled instruction in proper exercise performance Provided skilled manual cues to facilitate proper muscle recruitment and/or form: ASSESSMENT: Pt aware of importance of keeping knee in full extension during weight bearing activity. PLAN: Continue with balance training, global strengthening and general conditioning for improved safety, mobility and activity tolerance until pt is ready for DC. TREATMENT CODE/TIME: [id number], 96230t2, [id number] 38mins (9:15-9:53am)
--- NOTE | 2025-06-20 09:31 | DSE_ITS ---
Date of service: 06/20/25 Time of Service: 08:50 DS: Diagnosis Discharge Diagnosis (1) Other spontaneous disruption of capsular ligament of right knee: Status: Acute (2) Other spontaneous disruption of capsular ligament of left knee: Status: Acute (3) Hyperkalemia: Status: Acute Discharge Plan Disposition Patient Disposition: Senior Living Facility(SNF) Condition: Improving Discharge Details Reason For Visit: Bilateral Capsulotomy Ruptures Admit Date/Time: 06/18/25 12:06 Admit Provider: Miguelangel Shukla Attending Provider: Miguelangel Shukla Primary Care Provider: Vicki Gill Hospital Course Hospital Course: Patient was admitted to the medical/surgical floor following the procedure. The surgery was tolerated well without any notable medical, surgical, or anesthetic complications. Mobilization began postoperatively. He was voiding spontaneously. Vitals were stable. He did have hyperkalemia with no EKG changes and no symptoms. This resolved on its own with no intervention. Physical therapy worked with the patient and was cleared for discharge back to custodial facility with restrictions in knee flexion, wearing knee immobilizers for all activities including mobilization. No acute medical issues. Pain was controlled on oral regimen. Home Meds and New Rx's Prescriptions: Continued bupropion HCl 150 mg tablet extended release 24 hr 150 mg PO QAM gabapentin 300 mg capsule 300 mg PO QHS escitalopram oxalate 20 mg tablet 20 mg PO DAILY cholecalciferol (vitamin D3) 50 mcg (2,000 unit) capsule 50 mcg PO DAILY fluticasone furoate-vilanterol [Breo Ellipta] 200-25 mcg/dose blister with device 1 inh inhalation DAILY lisinopril 20 mg tablet 20 mg PO DAILY timolol maleate 0.5 % drops 1 drp ophthalmic (eye) BID Patient Comments: INSTILL 1 DROP IN BOTH EYES TWICE DAILY atorvastatin 40 mg tablet 40 mg PO HS Patient Comments: Take 1 tablet by mouth every night at bedtime celecoxib 200 mg Capsule 200 mg PO BID Qty: 0 0RF aspirin 81 mg Tablet,Delayed Release (Dr/Ec) 81 mg PO BID Qty: 0 0RF zinc oxide 20 % Ointment 1 applic topical BID PRN PRNQty: 0 0RF acetaminophen 500 mg Tablet 1,000 mg PO TID Qty: 0 0RF tamsulosin 0.4 mg Capsule 0.4 mg PO HS Qty: 0 0RF ferrous sulfate 325 mg (65 mg iron) Tablet 325 mg PO BID Qty: 0 0RF docusate sodium [Colace] 100 mg Capsule 100 mg PO BID PRN (Reason: Constipation) Qty: 0 0RF folic acid 1 mg Tablet 1 mg PO DAILY Qty: 0 0RF Phlexy-Vits 15 mg- 700 mcg Powder In Packet 1 packet PO TID Qty: 0 0RF cyclobenzaprine 10 mg tablet 10 mg PO BID Qty: 0 0RF Patient Comments: Pt reports taking BID Discontinued tramadol 50 mg tablet 50 mg PO Q6H PRN Discharge Instructions Additional Instructions: Knee capsule repair discharge Instructions Activity: In general, the knee immobilizer should stay on at all times. The straps may be loosened for comfort while laying with the legs extended. Skin check should be performed at least twice daily at the proximal and distal aspects of the brace to ensure there is no skin breakdown and pad and adjust as necessary. While the knees are stable for flexion for the next 2 weeks I recommend keeping the knee immobilizers in place for all transitions and mobilization. He is weightbearing as tolerated with knee immobilizers and assistive device. Dressing: Keep the surgical dressing (underneath the ALONZO wrap) in place for at least one week. After the first week it may be removed and replaced with light gauze and tape or nothing. The wound and dressing may get wet after 3 days but avoid soaking the dressing or otherwise it will need to be changed. If it gets wet, just pat dry. If it starts to peel off then it will need to be changed. Medications: - You should take Tylenol and anti-inflammatory Celebrex as your primary pain control medications. - You have Gabapentin to take at night for restlessness and nerve pain. - You will be taking Aspirin 81mg twice a day for DVT prevention unless instructed otherwise. - If you have constipation you should take Colace or Miralax (both [id number]). It takes most people 3-4 days to have a bowel movement. Follow-up: 2 weeks If you have any acute concerns or questions, please do not hesitate to contact the office at [phone]. You may contact Dr. Shukla with any questions after hours through the hospital at [phone] or on his cell phone at [phone]. Stand Alone Forms: Ashley Adams ([facility]) Referrals: Miguelangel Shukla MD [ [facility] STAFF PHYSICIAN, Orthopaedic Surgical] - 06/30/25 1:45 pm Activity:: Knee immobilizers Equipment/Supplies:: No Equipment Needed Diet:: As Tolerated Discharge Orders Discharge Orders: Discharge Order (Routine); Ordered 06/20/25 Ordered By: Miguelangel Shukla DS: Summary Time Spent with Patient providing and/or coordinating discharge services: Less than 30 minutes Status at Discharge Functional status at discharge: uses cane/walker Overall status at discharge: patient is progressing back to baseline Mental Status: mental status grossly normal Speech and Movement: speech and movement normal Mood: congruent mood Affect: normal affect Quality:SDOH Health Related Social Needs: Health related social needs lonely/isolated Health related social needs details Patient lost over two years ago, patient stated it is very hard to get over, but he is trying to move on. Exam Narrative Exam Narrative: Sitting up in the chair with the immobilizers in position. Both knees are inspected. Alonzo wrap's removed. Dressings are clean dry and intact. He is able demonstrate active knee extension against gravity and slight resistance. No defect palpable about the extensor mechanism. Minimal swelling. Psych Mental Status: mental status grossly normal Speech and Movement: speech and movement normal Mood: congruent mood Affect: normal affect DS: Data Vitals/I&O Vitals and I&O: Vital Signs Temperature 36.5 C 06/20/25 07:25 Temperature Source Temporal Artery Scan 06/20/25 07:25 Pulse 61 06/20/25 07:25 Pulse Rhythm Regular 06/18/25 18:38 Pulse 90 06/18/25 18:21 Respiratory Rate 17 06/20/25 07:25 Respiratory Effort Normal 06/18/25 18:38 Respiratory Depth Normal 06/18/25 18:38 Respiratory Pattern Normal 06/18/25 18:38 Blood Pressure 112/71 06/20/25 07:25 Blood Pressure Mean 84 06/20/25 07:25 Pulse Oximetry 96 06/20/25 07:25 Respiratory End-tidal CO2 27 06/18/25 18:21 Oxygen Delivery Method Room Air 06/20/25 07:25 Oxygen Flow Rate 0 06/20/25 07:25 Pain Level 0 06/20/25 07:25 Comment pt sleeping 06/20/25 03:34 Intake & Output 06/19/25 06/19/25 06/20/25 11:59 23:59 11:59 Intake Total 260 / 870 610 / 870 110 / 110 Output Total 50 / 621 571 / 621 Balance 210 / 249 39 / 249 110 / 110 Intake: IV 60 / 170 110 / 170 110 / 110 Oral 200 / 700 500 / 700 Output: Urine 50 / 500 450 / 500 Post Void Residual 121 / 121 Other: Urine Color Light Kimberly Straw Yellow Urine Appearance Clear Clear Urine Odor Strong Comment most of urine pt spilled on the bed large amount of urine on the pad. Data Completed and Pending Pending Labs at Discharge: 06/19/25 06/19/25 06/20/25 06:15 11:00 06:15 WBC 7.77 RBC 3.18 L Hgb 10.3 L Hct 31.8 L MCV 100 H MCH 32.4 MCHC 32.4 RDW 13.2 Plt Count 218 MPV 9.9 Sodium 139 140 139 Potassium 6.2 H* 5.3 H 4.9 Chloride 105 105 105 Carbon Dioxide 28.9 28.5 28.4 Anion Gap 5.1 6.5 5.6 BUN 43 H 42 H 37 H Creatinine 1.2 1.3 1.1 Est GFR (CKD-EPI 2020) 64.25 58.37 71.32 Glucose 115 H 104 89 Calcium 8.8 8.6 8.5 PFSH All Active Problems Hyperkalemia (Acute) Other spontaneous disruption of capsular ligament of right knee (Acute) Other spontaneous disruption of capsular ligament of left knee (Acute) History of total bilateral knee replacement (Acute) Iron deficiency anemia (Acute) PSA elevation (Acute) Elevated MCV (Acute) Anemia (Chronic) Blindness and low vision (Acute) Macular degeneration (Acute) Asthma (Chronic) Hyperlipidemia (Acute) Hypertensive disorder (Chronic) Onychomycosis (Acute) Depression (Chronic) Medical History History of bradycardia Urinary retention Aortic stenosis, moderate New on echo 05/20/25. Mild to Moderate Surgical History Hx of knee surgery 1975, R Social History Smoking/Tobacco Use Status: Former Tobacco Use Smoking risk assessment performed?: Yes Alcohol Intake: former Drug use: Never Substance use type: does not use Housing: house Do you feel safe at home: Yes Time Spent with Patient Time Spent with Patient: <45 minutes Time was spent: preparing to see the patient(eg.review tests), obtaining and/or reviewing separately otained hiistory, ordering medications,tests, procedures and counseling the patient
--- NOTE | 2025-06-20 09:37 | PDOC.CMDIS ---
Date of service: 06/20/25 Time of Service: 09:37 LACE Index Scoring Tool Questions: Length of Stay (in days): 2 Was the patient admitted via the E.D.?: No E.D. Visits: 0 Answers: Total Score: 2 Risk of Readmission: Low Risk Care Management Discharge Plan Reason for Hospitalization: Bilateral Capsulotomy Ruptures Discharge Plan: Luciano will be discharged back to SNF at [facility] today. It is recommended he follow up with his community providers and continue per his discharge plan of care. His transportation recommendation by PT is EMS. CM notified [facility] of Ed's anticipated arrival time and mode of arrival. Patient/Family Education Needs: Review of discharge instruction, activity, limitation, and plan of care. Discuss ask me three. SDOH Health Related Social Needs: Health related social needs lonely/isolated Health related social needs details Patient lost over two years ago, patient stated it is very hard to get over, but he is trying to move on.
== END 2025-06-20 10:52 | disposition skilled nursing facility (03) | DRG 489 ==
LOC: PDS 12:09 → MS 18:31
PROVIDERS: Admitting Provider Student in an Organized Health Care Education/Training Program; PCP Physician Assistant Medical; Responsible Provider Student in an Organized Health Care Education/Training Program; Visit Provider Student in an Organized Health Care Education/Training Program
PROC: 0SQD0ZZ Repair Left Knee Joint, Open Approach (ICD-10-PCS; CPT 27405; principal; 2025-06-18 16:00)
DX: M23.671 Other spontaneous disruption of capsular ligament of right knee (principal); M23.672 Other spontaneous disruption of capsular ligament of left knee; S76.111A Strain of right quadriceps muscle, fascia and tendon, initial encounter; S76.112A Strain of left quadriceps muscle, fascia and tendon, initial encounter; E87.5 Hyperkalemia; Z96.653 Presence of artificial knee joint, bilateral; I10 Essential (primary) hypertension; F32.A Depression, unspecified; B35.1 Tinea unguium; D50.9 Iron deficiency anemia, unspecified; J45.909 Unspecified asthma, uncomplicated; H35.30 Unspecified macular degeneration; I35.1 Nonrheumatic aortic (valve) insufficiency; Z79.899 Other long term (current) drug therapy; X58.XXXA Exposure to other specified factors, initial encounter
CPT/HCPCS: 27405; 27347; 36415; 80048; 85027; 94640; 97110; 97116; 97162; 97530; 93005; 93010; 94664; 94760; J0166; J0690; J1100; J1171; J1885; J2003; J2371; J2405; J2704; J2795; J3010

== ENCOUNTER → 2025-07-03 08:52 | Outpatient (BNVA) | payer MEDICARE, MEDICAID, SELFPAY | PROVIDERS: PCP Physician Assistant Medical; Referring Provider Physician Assistant Medical; Visit Provider Student in an Organized Health Care Education/Training Program | DX: M23.671 Other spontaneous disruption of capsular ligament of right knee (principal); M23.672 Other spontaneous disruption of capsular ligament of left knee; Z96.653 Presence of artificial knee joint, bilateral | CPT/HCPCS: 99024 ==

== ENCOUNTER 2025-07-31 11:12 | Outpatient (REF) | payer MEDICARE, MEDICAID, SELFPAY ==
[2025-07-31 12:35] LABS: Abs Immature Grans 0.01 10^3/uL (0.0-0.06); HCT 32.0 % (40.0-50.0); HGB 10.2 g/dL (13.5-17.5); Immature Grans % 0.2 %; MCH 31.7 pg (27.0-33.0); MCHC 31.9 % (32.0-36.0); MCV 99 fL (80-95); MPV 9.8 fL (8.0-11.0); Platelet Count 175 10^3/uL (130-400); RBC 3.22 10^6/uL (4.36-5.78); RDW 13.8 % (11.8-14.1); RDW-SD 50.8 fL; WBC 6.01 10^3/uL (4.4-10.8)
[2025-07-31 12:38] LABS: ALT 34 U/L (10-49); AST 38 U/L (<34); Albumin 3.5 g/dL (3.2-5.0); Alkaline Phosphatase 67 U/L (46-116); Anion Gap 7.2 mmol/L (3-11); BUN 35 mg/dL (9-23); Bilirubin, Total 0.30 mg/dL (0.2-1.2); CO2 27.8 mmol/L (20.0-31.0); Calcium 8.5 mg/dL (8.3-10.6); Chloride 106 mmol/L (98-107); Glucose 108 mg/dL (74-106); Potassium 4.6 mmol/L (3.5-5.1); Sodium 141 mmol/L (136-145); Total Protein 6.1 g/dL (5.7-8.2)
[2025-07-31 12:41] LABS: Ferritin 398 ng/mL (11-307)
== END 2025-07-31 11:13 | disposition home or self-care (01) ==
LOC: LBN 11:12
PROVIDERS: PCP Physician Assistant Medical; Visit Provider Nurse Practitioner Adult Health
DX: U07.1 COVID-19 (principal)
CPT/HCPCS: 80053; 82728; 85025

== ENCOUNTER 2025-08-06 11:51 | Outpatient (REF) | payer MEDICARE, MEDICAID, SELFPAY ==
[2025-08-06 11:19] LABS: Abs Immature Grans 0.20 10^3/uL (0.0-0.06); HCT 30.3 % (40.0-50.0); HGB 10.0 g/dL (13.5-17.5); Immature Grans % 1.4 %; MCH 31.9 pg (27.0-33.0); MCHC 33.0 % (32.0-36.0); MCV 97 fL (80-95); MPV 9.4 fL (8.0-11.0); Platelet Count 262 10^3/uL (130-400); RBC 3.13 10^6/uL (4.36-5.78); RDW 14.3 % (11.8-14.1); RDW-SD 51.2 fL; WBC 14.41 10^3/uL (4.4-10.8)
[2025-08-06 11:31] LABS: RBC Morphology Normal
[2025-08-06 11:40] LABS: C-Reactive Protein 16.94 mg/dL (<=0.50)
[2025-08-06 11:42] LABS: ALT 61 U/L (10-49); AST 79 U/L (<34); Albumin 3.2 g/dL (3.2-5.0); Alkaline Phosphatase 70 U/L (46-116); Anion Gap 9.4 mmol/L (3-11); BUN 37 mg/dL (9-23); Bilirubin, Total 0.6 mg/dL (0.2-1.2); CO2 26.6 mmol/L (20.0-31.0); Calcium 8.1 mg/dL (8.3-10.6); Chloride 107 mmol/L (98-107); Glucose 144 mg/dL (74-106); Potassium 4.1 mmol/L (3.5-5.1); Sodium 143 mmol/L (136-145); Total Protein 5.9 g/dL (5.7-8.2)
== END 2025-08-06 11:52 | disposition home or self-care (01) ==
LOC: LBN 11:51
PROVIDERS: PCP Physician Assistant Medical; Visit Provider Nurse Practitioner Adult Health
DX: U07.1 COVID-19 (principal); M62.81 Muscle weakness (generalized)
CPT/HCPCS: 80053; 85025; 86140

== ENCOUNTER 2025-08-13 13:59 | Outpatient (REF) | payer MEDICARE, MEDICAID, SELFPAY ==
[2025-08-13 14:07] LABS: Abs Immature Grans 0.09 10^3/uL (0.0-0.06); HCT 31.4 % (40.0-50.0); HGB 9.9 g/dL (13.5-17.5); Immature Grans % 1.1 %; MCH 30.8 pg (27.0-33.0); MCHC 31.5 % (32.0-36.0); MCV 98 fL (80-95); MPV 9.2 fL (8.0-11.0); Platelet Count 506 10^3/uL (130-400); RBC 3.21 10^6/uL (4.36-5.78); RDW 14.1 % (11.8-14.1); RDW-SD 51.0 fL; WBC 7.84 10^3/uL (4.4-10.8)
[2025-08-13 14:35] LABS: C-Reactive Protein 2.75 mg/dL (<=0.50)
[2025-08-13 14:36] LABS: ALT 76 U/L (10-49); AST 44 U/L (<34); Albumin 3.4 g/dL (3.2-5.0); Alkaline Phosphatase 77 U/L (46-116); Anion Gap 8.8 mmol/L (3-11); BUN 28 mg/dL (9-23); Bilirubin, Total 0.4 mg/dL (0.2-1.2); CO2 28.2 mmol/L (20.0-31.0); Calcium 9.0 mg/dL (8.3-10.6); Chloride 108 mmol/L (98-107); Glucose 109 mg/dL (74-106); Potassium 4.7 mmol/L (3.5-5.1); Sodium 145 mmol/L (136-145); Total Protein 6.4 g/dL (5.7-8.2)
== END 2025-08-13 14:00 | disposition home or self-care (01) ==
LOC: LBN 13:59
PROVIDERS: PCP Physician Assistant Medical; Visit Provider Nurse Practitioner Adult Health
DX: U07.1 COVID-19 (principal)
CPT/HCPCS: 80053; 85025; 86140

== ENCOUNTER → 2025-08-25 13:27 | Outpatient (BNVA) | payer MEDICARE, MEDICAID, SELFPAY | PROVIDERS: PCP Physician Assistant Medical; Referring Provider Physician Assistant Medical; Visit Provider Student in an Organized Health Care Education/Training Program | DX: Z47.89 Encounter for other orthopedic aftercare (principal); M23.671 Other spontaneous disruption of capsular ligament of right knee; M23.672 Other spontaneous disruption of capsular ligament of left knee; Z96.653 Presence of artificial knee joint, bilateral | CPT/HCPCS: 99024 ==